=== PATIENT | female | born 1960 | race African-American/Black ===

== ENCOUNTER 2017-08-07 13:43 | Inpatient (IN) | payer MEDICARE, MEDICAID ==
[~2017-08-07] VITALS: Ht 157.5 cm; Wt 110.6 kg
[2017-08-07] VITALS (7 sets, daily range): BP systolic 74–121; BP diastolic 36–97; PULSE 90–114; RESP 16–22; TEMP 98–98.6; O2SAT 96–100
[~2017-08-07 13:43] MED LIST: AMLO5 PO; COUM5TAB PO; FERR65TA PO; K-TA10TA5 PO; METO5TAB46 PO; POLY10O EACH EYE; ULTR50TA PO
--- NOTE | 2017-08-07 16:19 | RADRPT ---
EXAM DATE/TIME: 08/07/2017 15:14 [facility] COMPARISON: No previous studies available for comparison. INDICATIONS : Right leg swelling. MEDICAL HISTORY : Hypertension. Gastroesophageal reflux disease. Diabetes. Anxiety. SURGICAL HISTORY : Tubal ligation. Knee surgery. ENCOUNTER: Initial ACUITY: 1 day PAIN SCORE: 7/10 LOCATION: Right leg. TECHNIQUE: Venous ultrasound of the leg was performed from the inguinal ligament to the proximal calf. Real-edwina e, color Doppler and spectral tracing, compression and augmentation techniques were used. FINDINGS: The study is abnormal demonstrating noncompressibility of the common femoral and superficial femoral veins. There is some flow within the femoral vein, but no augmentation can be produced. There is ec hogenic thrombus seen in the popliteal vein, noncompressible, and limited flow the popliteal vein wit hout evidence of augmentation. Absent flow in the posterior tibial vein. There is a large groin nod e which has a discernible fatty hilum, but measures 6.2 x 2.5 x 1.9 cm. There is a large oval cystic structure in the popliteal region which extends into the calf, just a complicated popliteal cyst klarissa suring 15.4 x 9.6 x 3.4 cm. CONCLUSION: 1. The study is positive for deep venous thrombosis from the inguinal region to the proximal calf. 2. Large complicated popliteal cyst measuring in excess of 15 cm. 3. Enlarged 6 cm groin node with a preserved fatty hilum. Otto Zhang MD on August 07, 2017 at 16:13 Board Certified Radiologist. This report was verified electronically.
[2017-08-07] MEDS ORDERED: MORPHINE SULFATE 2 MG/ML SYRINGE IV PUSH ONE (17:00)
[2017-08-07] MEDS ORDERED: ONDANSETRON HCL 4 MG/2 ML VIAL IV PUSH ONE (17:00)
[2017-08-07] MEDS ORDERED: ACETAMINOPHEN/HYDROcodone 325 MG/5 MG TAB PO ONE (17:00)
[2017-08-07] MEDS ORDERED: METO5TAB3 PO (17:10)
[2017-08-07] MEDS ORDERED: WARF-22 PO (17:10)
[2017-08-07] MEDS ORDERED: FURO1TAB62 PO (17:10)
[2017-08-07] MEDS ORDERED: WARF-23 PO (17:10)
[2017-08-07] MEDS ORDERED: AMLO5TAB2 PO (17:10)
[2017-08-07] MEDS ORDERED: POTA10TA2 PO (17:10)
--- NOTE | 2017-08-07 17:17 | RADRPT ---
EXAM DATE/TIME: 08/07/2017 16:59 [facility] COMPARISON: No previous studies available for comparison. INDICATIONS : Swelling in bilateral legs and shortness of breath. MEDICAL HISTORY : Hypertension. Gastroesophageal reflux disease. Diabetes. Anxiety. SURGICAL HISTORY : Tubal ligation. Knee surgery. ENCOUNTER: Initial ACUITY: 1 day PAIN SCORE: 0/10 LOCATION: Bilateral chest FINDINGS: The heart is enlarged. There is no overt congestive failure. The lungs are clear. The visualized bony structures are grossly intact. CONCLUSION: 1. Cardiomegaly. Matt Falk MD on August 07, 2017 at 17:14 Board Certified Radiologist. This report was verified electronically.
--- NOTE | 2017-08-07 18:06 | RADRPT ---
EXAM DATE/TIME: 08/07/2017 17:59 [facility] COMPARISON: No previous studies available for comparison. INDICATIONS : Syncopal episode. RADIATION DOSE: 37.64 CTDIvol (mGy) MEDICAL HISTORY : Hypertension. Gastritis, Diabetes SURGICAL HISTORY : Tubal ligation. ENCOUNTER: Initial ACUITY: 1 day PAIN SCALE: 0/10 LOCATION: cranial TECHNIQUE: Multiple contiguous axial images were obtained of the head. Using automated exposure control and adj ustment of the mA and/or kV according to patient size, radiation dose was kept as low as reasonably a chievable to obtain optimal diagnostic quality images. DICOM format image data is available electro nically for review and comparison. FINDINGS: CEREBRUM: The ventricles are normal for age. No evidence of midline shift, mass lesion, hemorrhage or acute in farction. No extra-axial fluid collections are seen. POSTERIOR FOSSA: The cerebellum and brainstem are intact. The 4th ventricle is midline. The cerebellopontine angle i s unremarkable. EXTRACRANIAL: The visualized portion of the orbits is intact. SKULL: The calvaria is intact. No evidence of skull fracture. CONCLUSION: 1. No acute findings in the brain. Otto Zhang MD on August 07, 2017 at 18:03 Board Certified Radiologist. This report was verified electronically.
[2017-08-07 18:07] LABS: AUTOMATED NEUTROPHIL # 10.7 TH/MM3 (1.8-7.7); BASOPHIL % 0.1 % (0.0-2.0); HEMATOCRIT 28.6 % (35.0-46.0); HEMOGLOBIN 9.5 GM/DL (11.6-15.3); LYMPH % 5.1 % (9.0-44.0); LYMPHOCYTE # 0.6 TH/MM3 (1.0-4.8); MEAN CELL VOLUME 75.5 FL (80.0-100.0); MEAN CORPUSCULAR HEMOGLOBIN 25.1 PG (27.0-34.0); MEAN CORPUSCULAR HGB CONC 33.3 % (32.0-36.0); MEAN PLATELET VOLUME 9.8 FL (7.0-11.0); MONO % 7.9 % (0.0-8.0); NEUT % 86.9 % (16.0-70.0); PLATELET COUNT 269 TH/MM3 (150-450); RED BLOOD COUNT 3.79 MIL/MM3 (4.00-5.30); WHITE BLOOD COUNT 12.3 TH/MM3 (4.0-11.0)
[2017-08-07 18:16] LABS: PROTHROMBIN TIME - PATIENT 122.2 SEC (9.8-11.6)
[2017-08-07 18:24] LABS: INTERNATIONAL NORMALIZED RATIO 12.3 RATIO
[2017-08-07] MEDS ORDERED: PHYTONADIONE 10 MG/ML VIAL SQ ONE (18:30)
[2017-08-07 18:38] LABS: BLOOD UREA NITROGEN 31 MG/DL (7-18); CREATININE 1.38 MG/DL (0.50-1.00); GLOMERULAR FILTRATION RATE 48 ML/MIN (>89); GLUCOSE,RANDOM 132 MG/DL (74-106)
[2017-08-07 18:39] LABS: ALKALINE PHOSPHATASE 109 U/L (45-117); ALT (GPT) 39 U/L (10-53); AST (GOT) 51 U/L (15-37); CALCIUM 8.9 MG/DL (8.5-10.1); CHLORIDE 93 MEQ/L (98-107); MAGNESIUM 1.4 MG/DL (1.5-2.5); SODIUM (NA) 134 MEQ/L (136-145); TOTAL BILIRUBIN ADULT 1.3 MG/DL (0.2-1.0); TOTAL PROTEIN 8.9 GM/DL (6.4-8.2); TROPONIN I LESS THAN 0.02 NG/ML (0.02-0.05)
--- NOTE | 2017-08-07 20:05 | PD ---
HPI Chief Complaint: Edema Time Seen by Provider: 16:40 Travel History International Travel<30 days: No Contact w/Intl Traveler<30days: No Traveled to known affect area: No History of Present Illness HPI 56-year-old female that presents to the ED for evaluation swelling and pain to the right leg. The patient has been started. The patient has a history of low pulse in the past has been having pain in the right leg since. Per patient she was sent here for evaluation. Patient sure he takes Coumadin. She states that she is compliant with the medication except for today as she cannot swallow it secondary to nausea and vomiting. She states that the pain is currently 3 out of 10 and gets worse with weightbearing. Apparently for the patient to get her ultrasound she had a syncopal episode witnessed by staff. Patient had to be help to be put on the room. Patient denies doing anything to cause this. Per patient she has never had this happen before. Family witnessed the injury as well and there were highly concerned. Patient's main complaint is the right leg. Patient is also somewhat of a poor historian and is unable to give me much information. She has multiple allergies to different medications. She denies chest pain or shortness of breath. She had a headache. She seems to be very anxious. Denies any urinary or bowel movement issues at this time. PFSH Past Medical History Arthritis: No Asthma: No Autoimmune Disease: No Blood Disorders: No Anxiety: Yes Depression: No Heart Rhythm Problems: No Cancer: No Cardiovascular Problems: No High Cholesterol: No Chemotherapy: No Chest Pain: No Congestive Heart Failure: No COPD: No Cerebrovascular Accident: No Diabetes: Yes Patient Takes Glucophage: No Diminished Hearing: No Endocrine: Yes GERD: Yes (GASTRITIS) Glaucoma: No Genitourinary: No Headaches: No Hepatitis: No Hiatal Hernia: No Hypertension: Yes Immune Disorder: No Kidney Stones: No Musculoskeletal: No Neurologic: Yes (BORDERLINE MENTAL RETARDATION) Psychiatric: Yes (ADJUSTMENT REACTION) Reproductive: No Respiratory: No Migraines: No Myocardial Infarction: No Radiation Therapy: No Renal Failure: No Seizures: No Sickle Cell Disease: No Sleep Apnea: No Thyroid Disease: No Ulcer: No : 5 Para: 2 Miscarriage: 2 : 1 Ectopic : No Ovarian Cysts: No Tubal Ligation: Yes Past Surgical History Abdominal Surgery: No AICD: No Appendectomy: No Arteriovenous Shunt: No Cardiac Surgery: No Cholecystectomy: No Ear Surgery: No Endocrine Surgery: No Eye Surgery: No Genitourinary Surgery: No Gynecologic Surgery: No Hysterectomy: No Insulin Pump: No Joint Replacement: No Oral Surgery: No Pacemaker: No Thoracic Surgery: No Other Surgery: Yes (COULDN"T REMEMBER--KNEE SURGERY LEFT 07/2006) Social History Alcohol Use: No Tobacco Use: No Substance Use: No Allergies-Medications (Allergen,Severity, Reaction): Coded Allergies: diatrizoate meglumine (Unverified Allergy, Severe, 08/07/17) gadobenic acid (Unverified Allergy, Severe, 08/07/17) gadodiamide (Unverified Allergy, Severe, 08/07/17) gadoteridol (Unverified Allergy, Severe, 08/07/17) iodixanol (Unverified Allergy, Severe, 08/07/17) iohexol (Unverified Allergy, Severe, 08/07/17) Uncoded Allergies: MRI DYE (Allergy, Severe, UNKNOWN, 01/13/07) Reported Meds & Prescriptions Reported Meds & Active Scripts Active Reported Amlodipine (Amlodipine Besylate) 5 Mg Tab 5 Mg PO DAILY Metolazone 5 Mg Tab 5 Mg PO DAILY Lasix (Furosemide) 20 Mg Tab 20 Mg PO BID Potassium Chloride ER (Potassium Chloride) 10 Meq Tab 30 Meq PO DAILY Warfarin 10 Mg Tab 10 Mg PO DAILY Warfarin 5 Mg Tab 5 Mg PO DAILY Review of Systems ROS Limitations: Poor Historian Except as stated in HPI: all other systems reviewed are Neg Physical Exam Exam Limitations: Poor Historian Narrative GENERAL: SKIN: Warm and dry. HEAD: Atraumatic. Normocephalic. EYES: Pupils equal and round. No scleral icterus. No injection or drainage. ENT: No nasal bleeding or discharge. Mucous membranes pink and moist. NECK: Trachea midline. No JVD. CARDIOVASCULAR: Regular rate and rhythm. RESPIRATORY: No accessory muscle use. Clear to auscultation. Breath sounds equal bilaterally. GASTROINTESTINAL: Abdomen soft, non-tender, nondistended. Hepatic and splenic margins not palpable. MUSCULOSKELETAL: Extremities without clubbing, cyanosis, or edema. No obvious deformities. Patient has swelling and pain in the right leg and will barely let me touch it with having a lot of pain. Patient does appear to have good pulses. 2+ pulses bilaterally. No obvious deformity or pain to the left leg although does appear to be somewhat swollen. No lumbar, thoracic, cervical spine tenderness to palpation. NEUROLOGICAL: Awake and alert. No obvious cranial nerve deficits. Motor grossly within normal limits. Five out of 5 muscle strength in the arms and legs. Normal speech. PSYCHIATRIC: Appropriate mood and affect; insight and judgment normal. Data Data Last Documented VS Vital Signs Date Time Temp Pulse Resp B/P (MAP) Pulse Ox O2 Delivery O2 Flow Rate FiO2 08/07/17 20:13 98.6 94 16 107/67 (80) 97 Room Air Orders Orders Us Leg Venous Doppler (08/07/17 ) Electrocardiogram (08/07/17 16:50) Complete Blood Count With Diff (08/07/17 16:50) Comprehensive Metabolic Panel (08/07/17 16:50) Ckmb (Isoenzyme) Profile (08/07/17 16:50) Troponin I (08/07/17 16:50) Prothrombin Time / Inr (Pt) (08/07/17 16:50) Act Partial Throm Time (Ptt) (08/07/17 16:50) Lipase (08/07/17 16:50) Urinalysis - C+S If Indicated (08/07/17 16:50) Magnesium (Mg) (08/07/17 16:50) Thyroid Stimulating Hormone (08/07/17 16:50) Chest, Single Ap (08/07/17 16:50) Iv Access Insert/Monitor (08/07/17 16:50) Ecg Monitoring (08/07/17 16:50) Oximetry (08/07/17 16:50) Acetamin-Hydrocod 325-5 Mg ([place] 5-325 (08/07/17 17:00) Ventilation & Perfusion Scan (08/07/17 ) Morphine Inj (Morphine Inj) (08/07/17 17:00) Ondansetron Inj (Zofran Inj) (08/07/17 17:00) Ct Brain W/O Iv Contrast(Rout) (08/07/17 ) Phytonadione Inj (Vitamin K Inj) (08/07/17 18:30) Type And Screen (08/07/17 18:25) CKMB (08/07/17 17:38) CKMB% (08/07/17 17:38) Admit Order (Ed Use Only) (08/07/17 20:36) Labs Laboratory Tests Test 08/07/17 17:38 White Blood Count 12.3 TH/MM3 Red Blood Count 3.79 MIL/MM3 Hemoglobin 9.5 GM/DL Hematocrit 28.6 % Mean Corpuscular Volume 75.5 FL Mean Corpuscular Hemoglobin 25.1 PG Mean Corpuscular Hemoglobin Concent 33.3 % Red Cell Distribution Width 15.0 % Platelet Count 269 TH/MM3 Mean Platelet Volume 9.8 FL Neutrophils (%) (Auto) 86.9 % Lymphocytes (%) (Auto) 5.1 % Monocytes (%) (Auto) 7.9 % Eosinophils (%) (Auto) 0.0 % Basophils (%) (Auto) 0.1 % Neutrophils # (Auto) 10.7 TH/MM3 Lymphocytes # (Auto) 0.6 TH/MM3 Monocytes # (Auto) 1.0 TH/MM3 Eosinophils # (Auto) 0.0 TH/MM3 Basophils # (Auto) 0.0 TH/MM3 CBC Comment DIFF FINAL Differential Comment Prothrombin Time 122.2 SEC Prothromb Time International Ratio 12.3 RATIO Activated Partial Thromboplast Time 75.8 SEC Blood Urea Nitrogen 31 MG/DL Creatinine 1.38 MG/DL Random Glucose 132 MG/DL Total Protein 8.9 GM/DL Albumin 3.0 GM/DL Calcium Level 8.9 MG/DL Magnesium Level 1.4 MG/DL Alkaline Phosphatase 109 U/L Aspartate Amino Transf (AST/SGOT) 51 U/L Alanine Aminotransferase (ALT/SGPT) 39 U/L Total Bilirubin 1.3 MG/DL Sodium Level 134 MEQ/L Potassium Level 3.6 MEQ/L Chloride Level 93 MEQ/L Carbon Dioxide Level 31.0 MEQ/L Anion Gap 10 MEQ/L Estimat Glomerular Filtration Rate 48 ML/MIN Total Creatine Kinase 335 U/L Creatine Kinase MB LESS THAN 0.5 NG/ML Creatine Kinase MB % 0.1 % Troponin I LESS THAN 0.02 NG/ML Lipase 128 U/L Thyroid Stimulating Hormone 3rd Gen 0.907 uIU/ML MDM Medical Decision Making Medical Screen Exam Complete: Yes Emergency Medical Condition: Yes Medical Record Reviewed: Yes Interpretation(s) CBC & BMP Diagram 08/07/17 17:38 Total Protein 8.9 H, Albumin 3.0 L, Calcium Level 8.9, Magnesium Level 1.4 L, Alkaline Phosphatase 109, Aspartate Amino Transf (AST/SGOT) 51 H, Alanine Aminotransferase (ALT/SGPT) 39, Total Bilirubin 1.3 H INR of 12 Last Impressions Chest X-Ray 08/07/17 1650 Signed Impressions: Service Date/Time: August 16:59 - CONCLUSION: 1. Cardiomegaly. Matt Falk MD Lower Extremity Ultrasound 08/07/17 0000 Signed Impressions: Service Date/Time: August 15:14 - CONCLUSION: 1. The study is positive for deep venous thrombosis from the inguinal region to the proximal calf. 2. Large complicated popliteal cyst measuring in excess of 15 cm. 3. Enlarged 6 cm groin node with a preserved fatty hilum. Otto Zhang MD Head CT 08/07/17 0000 Signed Impressions: Service Date/Time: August 17:59 - CONCLUSION: 1. No acute findings in the brain. Otto Zhang MD Differential Diagnosis Syncope versus fall versus DVT versus PE versus anxiety versus head injury versus coagulopathy Narrative Course 56-year-old female who presents to the ED for evaluation of syncope and possible swelling. Patient was properly examined and was found to have signs and symptoms concerning syncope and DVT. Patient had an ultrasound done in triage showed positive for DVT. Patient already takes Coumadin. Concerning this patient should be therapeutic. Labs and imaging were ordered. Labs and imaging show coagulopathy with INR of 12. This was discussed with my attending Dr. Hill who recommends that at this time patient be only given vitamin K as patient does have a DVT. Because of patient's syncope and tachycardia we are concerned for PE. Patient is allergic to iodine dye so VQ scan was ordered. Patient was given IV pain medications and p.o. pain medications. VQ scan showed no sign of active disease. Case discussed with Dr Neal who agrees to admission. Diagnosis Primary Impression: Syncope Qualified Codes: R55 - Syncope and collapse Additional Impressions: DVT (deep venous thrombosis) Qualified Codes: I82.4Y1 - Acute embolism and thrombosis of unspecified deep veins of right proximal lower extremity Warfarin-induced coagulopathy Admitting Information Admitting Physician Requests: Admit Alexsander Restrepo Aug 07, 2017 20:05
--- NOTE | 2017-08-07 20:05 | RADRPT ---
EXAM DATE/TIME: 08/07/2017 19:16 [facility] COMPARISON: No previous studies available for comparison. INDICATIONS : Dyspnea. Syncope. DOSE: 1.3 mCi Tc99m DTPA 8.2 mCi Tc99m MAA MEDICAL HISTORY : Hypertension. Diabetes mellitus type 2. Borderline mental retardation. SURGICAL HISTORY : Tubal ligation. Left knee surgery. ENCOUNTER: Initial ACUITY: 1 day PAIN SCALE: 2/10 LOCATION: chest TECHNIQUE: Following five minutes of tidal breathing of DTPA aerosol, planar images of the lungs were performed in eight projections. The patient was then injected with MAA, and eight-view perfusion scan was perf ormed. FINDINGS: There is a homogeneous pattern of aerosol delivery to the periphery of both lungs. No focal ventilat ory defects are seen. The perfusion lung scan demonstrates a homogenous pattern of uptake in both lungs. No segmental or s ubsegmental defects are seen. CONCLUSION: 1. No evidence for pulmonary embolus. Chaz Arguelles MD on August 07, 2017 at 20:02 Board Certified Radiologist. This report was verified electronically.
[2017-08-07] MEDS: SODIUM CHLOR 0.9% 1000 ML INJ 1,000 ML IV SCH (22:45)
[2017-08-07] MEDS: SODIUM CHLORIDE 0.9% FLUSH 10 ML FLUSH IV FLUSH PRN (22:45)
[2017-08-07] MEDS: ACETAMINOPHEN/HYDROcodone 325 MG/5 MG TAB PO PRN (23:09)
[2017-08-08 04:00] VITALS: BP 97/53; PULSE 83; RESP 18; TEMP 98.8; O2SAT 97
--- NOTE | 2017-08-08 04:37 | HHI.HP ---
[facility] Bart Dotson M.D. Admission Diagnosis DVT on coumadin, warfarin induced coagulopathy, syncope Diagnoses: Travel History International Travel<30 Days: No Contact w/Intl Traveler <30 Da: No Traveled to Known Affected Are: No History of Present Illness 56-year-old female with a past medical history significant for borderline mental retardation, adjustment reaction, anxiety, diabetes, GERD, hypertension and history of previously diagnosed DVT was brought to the emergency department for evaluation of a syncopal episode. The patient has a known DVT in her right lower extremity and was having an outpatient ultrasound done yesterday when she had a syncopal episode that was witnessed by staff and family. The patient is an extremely poor historian and is unable to provide me with any information. She states she is having pain in her right lower extremity, worse in the calf region and states that that is why she came to the emergency department today. She denies any other complaints at this time. She states that her DVT was diagnosed yesterday and she was started on blood thinner. The patient is on Coumadin and has a supratherapeutic INR of 12.3. She denies chest pain or shortness of breath. No abdominal pain. No nausea/vomiting/diarrhea. States she does have difficulty walking secondary to right lower extremity pain. Review of Systems Except as stated in HPI: all other systems reviewed are Neg Past Family Social History Past Medical History borderline mental retardation, adjustment reaction, anxiety, diabetes, GERD, hypertension and history of previously diagnosed DVT Past Surgical History Tubal ligation Reported Medications Reported Meds & Active Scripts Active Reported Amlodipine (Amlodipine Besylate) 5 Mg Tab 5 Mg PO DAILY Metolazone 5 Mg Tab 5 Mg PO DAILY Lasix (Furosemide) 20 Mg Tab 20 Mg PO BID Potassium Chloride ER (Potassium Chloride) 10 Meq Tab 30 Meq PO DAILY Warfarin 10 Mg Tab 10 Mg PO DAILY Warfarin 5 Mg Tab 5 Mg PO DAILY Allergies: Coded Allergies: diatrizoate meglumine (Unverified Allergy, Severe, 08/07/17) gadobenic acid (Unverified Allergy, Severe, 08/07/17) gadodiamide (Unverified Allergy, Severe, 08/07/17) gadoteridol (Unverified Allergy, Severe, 08/07/17) iodixanol (Unverified Allergy, Severe, 08/07/17) iohexol (Unverified Allergy, Severe, 08/07/17) Uncoded Allergies: MRI DYE (Allergy, Severe, UNKNOWN, 01/13/07) Family History Unable to obtain secondary to patient's clinical condition Social History Negative for alcohol, tobacco and illicit drugs Physical Exam Vital Signs Vital Signs Date Time Temp Pulse Resp B/P (MAP) Pulse Ox O2 Delivery O2 Flow Rate FiO2 08/07/17 23:55 98.0 90 18 74/36 (49) 98 84/49 (61) 121/97 (105) 08/07/17 22:19 08/07/17 20:13 98.6 94 16 107/67 (80) 97 Room Air 08/07/17 17:05 108 20 115/70 (85) 100 Room Air 08/07/17 16:51 114 21 115/70 (85) 96 Room Air 08/07/17 15:35 108 18 99/81 (87) 99 08/07/17 15:20 106 99/81 (87) 100 08/07/17 14:06 98.3 102 22 114/54 (74) 100 Physical Exam GENERAL: Obese, female lying in bed SKIN: No rashes, ecchymoses or lesions. Cool and dry. HEAD: Atraumatic. Normocephalic. No temporal or scalp tenderness. EYES: Pupils equal round and reactive. Extraocular motions intact. No scleral icterus. No injection or drainage. ENT: Nose without bleeding, purulent drainage or septal hematoma. Throat without erythema, tonsillar hypertrophy or exudate. Uvula midline. Airway patent. NECK: Trachea midline. No JVD or lymphadenopathy. Supple, nontender, no meningeal signs. CARDIOVASCULAR: Regular rate and rhythm without murmurs, gallops, or rubs. RESPIRATORY: Clear to auscultation. Breath sounds equal bilaterally. No wheezes , rales, or rhonchi. GASTROINTESTINAL: Abdomen soft, non-tender, nondistended. No hepato-splenomegaly , or palpable masses. No guarding. MUSCULOSKELETAL: Right lower extremity swollen when compared to left. Tender to palpation. NEUROLOGICAL: Awake and alert. Cranial nerves II through XII intact. Motor and sensory grossly within normal limits. Normal speech. Laboratory Laboratory Tests Test 08/07/17 17:38 White Blood Count 12.3 Red Blood Count 3.79 Hemoglobin 9.5 Hematocrit 28.6 Mean Corpuscular Volume 75.5 Mean Corpuscular Hemoglobin 25.1 Mean Corpuscular Hemoglobin Concent 33.3 Red Cell Distribution Width 15.0 Platelet Count 269 Mean Platelet Volume 9.8 Neutrophils (%) (Auto) 86.9 Lymphocytes (%) (Auto) 5.1 Monocytes (%) (Auto) 7.9 Eosinophils (%) (Auto) 0.0 Basophils (%) (Auto) 0.1 Neutrophils # (Auto) 10.7 Lymphocytes # (Auto) 0.6 Monocytes # (Auto) 1.0 Eosinophils # (Auto) 0.0 Basophils # (Auto) 0.0 CBC Comment DIFF FINAL Differential Comment Prothrombin Time 122.2 Prothromb Time International Ratio 12.3 Activated Partial Thromboplast Time 75.8 Blood Urea Nitrogen 31 Creatinine 1.38 Random Glucose 132 Total Protein 8.9 Albumin 3.0 Calcium Level 8.9 Magnesium Level 1.4 Alkaline Phosphatase 109 Aspartate Amino Transf (AST/SGOT) 51 Alanine Aminotransferase (ALT/SGPT) 39 Total Bilirubin 1.3 Sodium Level 134 Potassium Level 3.6 Chloride Level 93 Carbon Dioxide Level 31.0 Anion Gap 10 Estimat Glomerular Filtration Rate 48 Total Creatine Kinase 335 Creatine Kinase MB LESS THAN 0.5 Creatine Kinase MB % 0.1 Troponin I LESS THAN 0.02 Lipase 128 Thyroid Stimulating Hormone 3rd Gen 0.907 Result Diagram: 08/07/17 1738 08/07/17 1738 Caprini VTE Risk Assessment Caprini VTE Risk Assessment: Mod/High Risk (score >= 2) Caprini Risk Assessment Model Point Value = 1 Point Value = 2 Point Value = 3 Point Value = 5 Age 41-60 Minor surgery BMI > 25 kg/m2 Swollen legs Varicose veins or History of unexplained or recurrent spontaneous Oral contraceptives or hormone replacement Sepsis (< 1 month) Serious lung disease, including pneumonia (< 1 month) Abnormal pulmonary function Acute myocardial infarction Congestive heart failure (< 1 month) History of inflammatory bowel disease Medical patient at bed rest Age 61-74 Arthroscopic surgery Major open surgery (> 45 min) Laparoscopic surgery (> 45 min) Malignancy Confined to bed (> 72 hours) Immobilizing plaster cast Central venous access Age >= 75 History of VTE Family history of VTE Factor V Leiden Prothrombin [id number] Lupus anticoagulant Anticardiolipin antibodies Elevated serum homocysteine Heparin-induced thrombocytopenia Other congenital or acquired thrombophilia Stroke (< 1 month) Elective arthroplasty Hip, pelvis, or leg fracture Acute spinal cord injury (< 1 month) Prophylaxis Regimen Total Risk Factor Score Risk Level Prophylaxis Regimen 0-1 Low Early ambulation 2 Moderate Order ONE of the following: *Sequential Compression Device (SCD) *Heparin 5000 units SQ BID 3-4 Higher Order ONE of the following medications: *Heparin 5000 units SQ TID *Enoxaparin/Lovenox 40 mg SQ daily (WT < 150 kg, CrCl > 30 mL/min) *Enoxaparin/Lovenox 30 mg SQ daily (WT < 150 kg, CrCl > 10-29 mL/min) *Enoxaparin/Lovenox 30 mg SQ BID (WT < 150 kg, CrCl > 30 mL/min) AND/OR *Sequential Compression Device (SCD) 5 or more Highest Order ONE of the following medications: *Heparin 5000 units SQ TID (Preferred with Epidurals) *Enoxaparin/Lovenox 40 mg SQ daily (WT < 150 kg, CrCl > 30 mL/min) *Enoxaparin/Lovenox 30 mg SQ daily (WT < 150 kg, CrCl > 10-29 mL/min) *Enoxaparin/Lovenox 30 mg SQ BID (WT < 150 kg, CrCl > 30 mL/min) AND *Sequential Compression Device (SCD) Assessment and Plan Assessment and Plan Assessment/plan: 1. Supratherapeutic INR INR 12.3 Status post vitamin K Monitor INR Monitor closely for signs of bleeding Holding Coumadin 2. Right lower extremity DVT Patient with extensive right lower extremity DVT despite anticoagulation with Coumadin Will likely need different anticoagulation Hematology consulted, appreciate recommendations 3. Syncope Unclear history as patient does not remember the event Carotid ultrasound/Echo pending 4. Diabetes mellitus Sliding scale insulin Monitor blood glucose 5. GERD/hypertension Continue home medications 6. BROWN Creatinine 1.38, baseline unknown IV fluid hydration Monitor renal function FEN Heart healthy diet Electrolytes: Monitor and replete when necessary NS at 125 cc/hr Physician Certification 2 Midnight Certification Type: Admission for Inpatient Services Order for Inpatient Services The services are ordered in accordance with Medicare regulations or non- Medicare payer requirements, as applicable. In the case of services not specified as inpatient-only, they are appropriately provided as inpatient services in accordance with the 2-midnight benchmark. Estimated LOS (days): 2 2 days is the estimated time the patient will need to remain in the hospital, assuming treatment plan goals are met and no additional complications. Post-Hospital Plan: Not yet determined Ayleen Neal MD Aug 08, 2017 04:37
--- NOTE | 2017-08-08 05:39 | EKG ---
Date Performed: 08/07/2017 Time Performed: 17:19:41 PTAGE: 56 years EKG: SINUS TACHYCARDIA POSSIBLE LEFT ATRIAL ENLARGEMENT NONSPECIFIC T-WAVE ABNORMALITY ABNORMAL RHYTHM ECG NO PREVIOUS TRACING DOCTOR: Gerardo Maradiaga Interpretating Date/Time 08/08/2017 05:38:01
[2017-08-08] MEDS: ACETAMINOPHEN/HYDROcodone 325 MG/5 MG TAB PO PRN ×4 (06:04→21:52)
[2017-08-08 08:00] VITALS: BP 76/52; PULSE 79; PULSE 82; RESP 18; TEMP 98.5; O2SAT 98
[2017-08-08] MEDS: amLODIPine BESYLATE 5 MG TAB PO SCH (10:42)
[2017-08-08] MEDS: POTASSIUM CHLORIDE 10 MEQ CONTROLLED RELEASE TAB PO SCH (10:42)
[2017-08-08] MEDS: METOLAZONE 5 MG TAB PO SCH (10:43)
[2017-08-08] MEDS: FUROSEMIDE 20 MG TAB PO SCH ×2 (10:43→19:58)
[2017-08-08] MEDS: SODIUM CHLORIDE 0.9% FLUSH 10 ML FLUSH IV FLUSH SCH ×2 (10:44→19:58)
[2017-08-08] MEDS: SODIUM CHLOR 0.9% 1000 ML INJ 1,000 ML IV SCH ×2 (10:45→17:52)
--- NOTE | 2017-08-08 11:54 | RADRPT ---
EXAM DATE/TIME: 08/08/2017 11:16 [facility] COMPARISON: No previous studies available for comparison. INDICATIONS : Syncope. MEDICAL HISTORY : Hypertension. Gastroesophageal reflux disease. Gastritis. Arthritis. Diabetes. SURGICAL HISTORY : Tubal ligation. Left knee surgery. ENCOUNTER: Initial ACUITY: 1 day PAIN SCORE: 10/10 LOCATION: Bilateral neck PEAK SYSTOLIC VELOCITIES (cm/sec): ICA/CCA RATIO: Right: 1.3 Left: 1.6 ICA: Right: 133.2 Left: 131.8 CCA: Right: 101.6 Left: 81.4 ECA: Right: 104.9 Left: 106.5 VERTEBRAL: Right: 58.6 antegrade Left: 65.8 antegrade Elevated flow velocities and ICA/CCA ratios have been found to correlate with increased degrees of vessel stenosis, calculated as percentage of diameter relative to a normal segment of distal ICA/CCA FINDINGS: RIGHT CAROTID: There is mild plaque formation in the carotid bulb. No significant stenosis is visualized. The wave forms are within normal limits. LEFT CAROTID: There is mild plaque formation in the proximal internal carotid artery. No significant stenosis is v isualized. The waveforms are within normal limits. VERTEBRAL ARTERIES: Antegrade flow is seen in both vertebral arteries. CONCLUSION: Mild noncalcified plaque seen real-time images. However, hemodynamic parameters are borderline eleva lenny suggesting possible 50-70% stenoses. Otto Zhang MD on August 08, 2017 at 11:50 Board Certified Radiologist. This report was verified electronically.
[2017-08-08 12:00] VITALS: BP 91/52; PULSE 80; PULSE 87; RESP 18; TEMP 98.5; O2SAT 98
[2017-08-08] MEDS: MORPHINE SULFATE 2 MG/ML SYRINGE IV PUSH PRN ×2 (13:36→19:57)
[2017-08-08 16:00] VITALS: BP 125/59; PULSE 88; PULSE 98; RESP 18; TEMP 101.6; O2SAT 98
--- NOTE | 2017-08-08 16:51 | ECHRPT ---
Indication: Syncope CONCLUSIONS The left ventricular systolic function is low normal with an estimated ejection fraction in the rang e of 50- 55%. Mild concentric left ventricular hypertrophy. Normal left ventricular size. Trivial pulmonary valve regurgitation. BP: / HR: 79 Rhythm: Sinus MEASUREMENTS (Male / Female) Normal Values Technical Quality:Technically difficult study 2D ECHO LV Diastolic Diameter PLAX 4.3 cm 4.2 - 5.9 / 3.9 - 5.3 cm LV Systolic Diameter PLAX 3.1 cm IVS Diastolic Thickness 1.3 cm 0.6 - 1.0 / 0.6 - 0.9 cm LVPW Diastolic Thickness 1.0 cm 0.6 - 1.0 / 0.6 - 0.9 cm LV Relative Wall Thickness 0.5 RV Internal Dim ED PLAX 2.9 cm LVOT Diameter 1.9 cm LA Systolic Diameter LX 3.6 cm 3.0 - 4.0 / 2.7 - 3.8 cm M-MODE Aortic Root Diameter MM 2.7 cm LA Systolic Diameter MM 4.0 cm LA Ao Ratio MM 1.5 AV Cusp Separation MM 1.3 cm DOPPLER AV Peak Velocity 173.0 cm/s AV Peak Gradient 12.0 mmHg MV Area PHT 3.7 cm Mitral E Point Velocity 92.2 cm/s Mitral A Point Velocity 45.1 cm/s Mitral E to A Ratio 2.0 LV E' Lateral Velocity 8.3 cm/s Mitral E to LV E' Lateral Ratio 11.1 LV E' Septal Velocity 7.1 cm/s Mitral E to LV E' Septal Ratio 12.9 FINDINGS LEFT VENTRICLE The left ventricular systolic function is low normal with an estimated ejection fraction in the rang e of 50- 55%. Mild concentric left ventricular hypertrophy. Normal left ventricular size. RIGHT VENTRICLE Normal right ventricular size and systolic function. LEFT ATRIUM The left atrial size is normal. RIGHT ATRIUM The right atrial size is normal. ATRIAL SEPTUM Normal atrial septal thickness without atrial level shunting by limited color doppler interrogation. AORTA The aortic root and proximal ascending aorta are normal in size on limited imaging. MITRAL VALVE Structurally normal mitral valve. No mitral valve stenosis or regurgitation. AORTIC VALVE Moderate thickening of the aortic valve leaflets. TRICUSPID VALVE Structurally normal tricuspid valve. No tricuspid valve stenosis or regurgitation. PULMONARY VALVE Trivial pulmonary valve regurgitation. VESSELS The inferior vena cava is normal in size. PERICARDIUM No pericardial effusion. Frankie Gutierrez MD, FACC (Electronically Signed) Final Date:08 August 2017 16:51
--- NOTE | 2017-08-08 18:33 | MB ---
cc: Ronni Smith MD, Kashyap MD DATE: 08/08/2017 REASON FOR CONSULTATION: The patient with recurrent lower extremity deep venous thromboses. She apparently has progressive DVT while on warfarin. This was the reason for consultation. CHIEF COMPLAINT: Pain in the right leg associated with worsening swelling. The patient reports the pain has been present since the day before Friday, which was 6 days ago. HISTORY OF PRESENT ILLNESS: Ms. Petersen is a 56-year-old female with a history of recurrent lower extremity deep venous thromboses. I did review our electronic health record, and this patient has had documented bilateral lower extremity deep venous thromboses going back to 2006. She underwent an IVC filter placement in October 2006, and I suspect this remains in place. The patient reports having been on anticoagulation with warfarin for several years now. She tells me the warfarin is managed by her PCP, Dr. Bart Dotson. Her most recent PT/INR check was in mid July, per the patient, and she was told it was fine. She tells me she takes the medication every day just as prescribed. When asked if she misses doses or sometimes takes extra, she tells me that does not happen. The patient comes into the hospital with the above-noted complaints of pain and swelling in her right leg. She did undergo ultrasound Doppler studies on 08/07/2017, and ultrasound Doppler of the right lower extremity revealed deep venous thromboses involving the inguinal region down to the proximal calf. There was a large complicated popliteal cyst measuring approximately 15 cm noted, and a large 6 cm right groin lymph node with a preserved fatty hilum was also appreciated. Interestingly, the patient's PT/INR levels were supratherapeutic at the time of presentation with a PT of 122, PTT of 75.8, and an INR of 12.3. She was treated with subcutaneous vitamin K and was admitted to the hospital. The hematology service has been asked to see her for presumed failure of warfarin despite her being therapeutic. I do not have serial ultrasound Doppler studies to review to determine the chronicity of the current deep venous thrombosis. PAST MEDICAL HISTORY: 1. Morbid obesity. 2. Hypertension. 3. Chronic lower extremity edema. 4. Hyperlipidemia. 5. She reports having a neurocognitive deficits. 6. She reports previously having been diabetic. PAST SURGICAL HISTORY: 1. IVC filter placement. 2. EGD and colonoscopy. She does not recall any other past surgical procedures. FAMILY HISTORY: Mom of cancer of the stomach. Her father at a young age, he in an accidental drowning. She reports having had a maternal uncle with lung cancer. SOCIAL HISTORY: The patient lives at home alone, she lives in an assisted living facility. She has an adult son and daughter, both of whom live in the [place] area, both of whom are involved in her care. She tells me she is self-sufficient, she never and previously worked various jobs. The patient is originally from [place] and then moved around before settling in [facility] in the early . ALLERGIES: She has allergies as documented in the electronic health record: 1. GADOBENIC ACID. 2. DIATRIZOATE. 3. MRI CONTRAST. REVIEW OF SYSTEMS: A 13-point review of systems were obtained. The following are the pertinent positives and negatives: CONSTITUTIONAL: The patient reports weakness, fatigue. She reports low-grade fevers. HEENT: Denies headaches, denies blurry vision, denies soreness in her throat, denies difficulty swallowing. RESPIRATORY: Reports difficulty breathing with minimal exertion. Denies cough or hemoptysis. CARDIOVASCULAR: Denies angina-like chest pain, PND or orthopnea. LOWER EXTREMITIES: Chronic lower extremity edema. GASTROINTESTINAL: Denies nausea, vomiting, diarrhea, hematochezia or melena. She denies abdominal distention. UROGENITAL: No complaints. CENTRAL NERVOUS SYSTEM: No complaints. MUSCULOSKELETAL: She reports pain in her right leg. PHYSICAL EXAMINATION: VITAL SIGNS: Temperature 98.5 degrees Fahrenheit, heart rate 80 beats per minute, respiratory rate 18, blood pressure is 91/52, O2 saturations are 98% on room air. GENERAL APPEARANCE: Ms. Peetrsen is a middle-aged lady. She is short and is morbidly obese. She is sitting up in bed and is in no acute distress. HEENT: Head is atraumatic, normocephalic. Conjunctivae are mildly pale. Sclerae are anicteric, EOMI, PERRLA. Oral exam: No pharyngeal erythema. NECK: No palpable cervical or supraclavicular lymphadenopathy. RESPIRATORY: Good air movement bilaterally on anterior examination. Slightly diminished breath sounds over the bases. CARDIOVASCULAR: Regular rate and rhythm, S1, S2. No obvious murmurs, rubs or gallops. ABDOMEN: Morbidly obese, soft, nontender, nondistended. No obvious organ enlargement, but this exam was limited by her body habitus. EXTREMITIES: She has bilateral edema; it is nonpitting. The right calf posteriorly is warm to the touch and edematous. There appears to be some erythema as well. She does not have any tenderness of the thigh on the right side, which is where the bulk of the deep venous thrombosis is. LABORATORY FINDINGS: Labs dated 08/07/2017: WBC count 12.3, hemoglobin 9.5 g/dL, hematocrit 28.6%, MCV 75.5, platelet count 269, absolute neutrophil count is 10.5, absolute lymphocyte count is 0.6. Chemistries: Sodium 134, potassium 3.6, chloride 93, bicarb 31, BUN 31, creatinine 1.38, eGFR 48, random glucose is 132, calcium 8.9, magnesium 1.4, total bilirubin 1.3, AST 51, ALT 39, alkaline phosphatase 109, CK is 33.5. ____ is 8.9, ____ is 3, lipase 128, TSH is 0.91. Coags dated 08/07/2017: PT 122, INR 12.3, PTT 75.8. IMAGING STUDIES: Ultrasound Doppler study of the right lower extremity dated 08/07/2017 indicates positive for deep venous thrombosis from the inguinal region to the proximal calf. Large complicated popliteal cyst measuring in excess of 15 cm, and a large 6 cm groin lymph node with preserved fatty hilum. ASSESSMENT: Ms. Petersen is a 56-year-old female with a history of recurrent lower extremity deep venous thromboses (DVTs). She has had DVTs dating back to 2007. In the summer of 2016, she underwent placement of an IVC filter as well, presumably for her history of DVTs. She has been on anticoagulation with warfarin and tells me her PCP typically monitors her PT/INR levels. She claims she is fully adherent to the medication as prescribed. The patient presents to this facility with complaints of progressive pain and swelling of the right leg. She reports the pain is mostly involving the right calf. On clinical examination, she has erythema of the right calf and it appears, in my opinion, to be most consistent with cellulitis, given the exquisite tenderness and the superficial tenderness. Additionally, she was noted to have a DVT involving the right lower extremity, with the DVT extending from the right inguinal area down to the right popliteal veins. She has no tenderness involving the right thigh. Her PT/INR was noted to be supratherapeutic and she was treated with subcutaneous vitamin K. Repeat PT/INR levels are pending. RECOMMENDATIONS: 1. Pain in the right calf: Clinical picture is more consistent with cellulitis. I am not certain to what degree her current symptoms are related to the DVT. I would therefore recommend initiating antibiotic therapy for management of cellulitis. 2. History of recurrent deep venous thromboses: Given the fact that this patient has an IVC filter and has had an IVC filter for about 11 years now, it is quite possible that she has had chronic lower extremity DVTs. The chronicity of the current DVT would be impossible to know without there being serial assessments over time, which we have not had. Upon reviewing the report, there is no indication to suggest the DVT was acute. Additionally, she has no symptoms of pain in her thigh, which is where the bulk of the DVT is. Such a presentation indicates more of a chronic DVT, as opposed to an acute DVT. I will recommend obtaining a prothrombotic workup for her. I suspect her risk factors for DVTs are her morbid obesity and relative immobility. Additionally, the fact that she has an IVC filter in place is also a risk factor for recurrence of lower extremity deep venous thromboses. 3. Elevated PT/INR levels: I would recommend repeating a PT/INR right now. It may be reasonable to initiate this lady on an oral factor X inhibitor such as Eliquis or Xarelto. Special attention will need to be directed to her renal function to make sure she maintains normal renal function while on these medications. MD ARAM Ritchie/NIRAV , 05:14 PM , 06:31 PM
[2017-08-08 19:22] LABS: PROTHROMBIN TIME - PATIENT 60.6 SEC (9.8-11.6)
[2017-08-08 19:41] LABS: INTERNATIONAL NORMALIZED RATIO 6.1 RATIO
[2017-08-08 20:00] VITALS: BP_SYST 103; BP_SYST 105; BP_SYST 106; BP_DIAS 55; BP_DIAS 62; PULSE 97; RESP 20; TEMP 100.9; O2SAT 97
[2017-08-09] VITALS (15 sets, daily range): BP systolic 90–109; BP diastolic 51–66; PULSE 79–100; RESP 18–22; TEMP 98.7–100.3; O2SAT 95–99
[2017-08-09] MEDS: ACETAMINOPHEN/HYDROcodone 325 MG/5 MG TAB PO PRN ×5 (01:20→20:55)
[2017-08-09] MEDS: SODIUM CHLOR 0.9% 1000 ML INJ 1,000 ML IV SCH ×3 (03:52→23:52)
--- NOTE | 2017-08-09 08:52 | HHI.PR ---
Subjective Remarks 56-year-old female with a past medical history significant for borderline mental retardation, adjustment reaction, anxiety, diabetes, GERD, hypertension and history of previously diagnosed DVT was brought to the emergency department for evaluation of a syncopal episode. The patient has a known DVT in her right lower extremity and was having an outpatient ultrasound done yesterday when she had a syncopal episode that was witnessed by staff and family. The patient is an extremely poor historian and is unable to provide me with any information. She states she is having pain in her right lower extremity, worse in the calf region and states that that is why she came to the emergency department today. She denies any other complaints at this time. She states that her DVT was diagnosed yesterday and she was started on blood thinner. The patient is on Coumadin and has a supratherapeutic INR of 12.3. She denies chest pain or shortness of breath. No abdominal pain. No nausea/vomiting/diarrhea. States she does have difficulty walking secondary to right lower extremity pain. 08/09: Echocardiogram EF 55%. Seen by Doctor Ronni Smith, the patient has recurrent lower extremity DVT, Bilateral 2006, IVC filter in October 2006, has Morbid Obesity, now with Right lower extremity DVT, Right calf cellulitis, recommended to start antibiotics. recommended Eliquis or Xarelto. special attention to her renal function. Objective Vital Signs Date Time Temp Pulse Resp B/P (MAP) Pulse Ox O2 Delivery O2 Flow Rate FiO2 08/09/17 07:28 83 08/09/17 04:00 100.3 93 18 90/51 (64) 95 08/09/17 01:20 109/58 (75) 08/09/17 00:00 98.7 100 22 92/51 (65) 97 08/08/17 20:00 100.9 97 20 106/55 (72) 97 105/62 (76) 103/55 (71) 08/08/17 16:00 101.6 98 18 125/59 (81) 98 08/08/17 16:00 88 08/08/17 12:00 98.5 80 18 91/52 (65) 98 08/08/17 12:00 87 I/O 08/08/17 08/08/17 08/08/17 08/09/17 08/09/17 08/09/17 07:00 15:00 23:00 07:00 15:00 23:00 Intake Total 240 ml 240 ml 240 ml Balance 240 ml 240 ml 240 ml Intake Oral 240 ml 240 ml 240 ml # Voids 1 3 3 # Bowel Movements 0 0 0 Result Diagram: 08/07/17 1738 08/07/17 1738 Imaging Last Impressions Carotid Artery Ultrasound 08/08/17 0000 Signed Impressions: Service Date/Time: Tuesday, August 08, 2017 11:16 - CONCLUSION: Mild noncalcified plaque seen real-time images. However, hemodynamic parameters are borderline elevated suggesting possible 50-70%% stenoses. Otto Zhang MD Chest X-Ray 08/07/17 1650 Signed Impressions: Service Date/Time: August 16:59 - CONCLUSION: 1. Cardiomegaly. Matt Falk MD Lung Scan-V Nuclear Medicine 08/07/17 0000 Signed Impressions: Service Date/Time: August 19:16 - CONCLUSION: 1. No evidence for pulmonary embolus. Chaz Arguelles MD Lower Extremity Ultrasound 08/07/17 0000 Signed Impressions: Service Date/Time: August 15:14 - CONCLUSION: 1. The study is positive for deep venous thrombosis from the inguinal region to the proximal calf. 2. Large complicated popliteal cyst measuring in excess of 15 cm. 3. Enlarged 6 cm groin node with a preserved fatty hilum. Otto Zhang MD Head CT 08/07/17 0000 Signed Impressions: Service Date/Time: August 17:59 - CONCLUSION: 1. No acute findings in the brain. Otto Zhang MD Procedures None Other Results Laboratory Tests Test 08/07/17 17:38 08/08/17 19:00 White Blood Count 12.3 TH/MM3 Red Blood Count 3.79 MIL/MM3 Hemoglobin 9.5 GM/DL Hematocrit 28.6 % Mean Corpuscular Volume 75.5 FL Mean Corpuscular Hemoglobin 25.1 PG Mean Corpuscular Hemoglobin Concent 33.3 % Red Cell Distribution Width 15.0 % Platelet Count 269 TH/MM3 Mean Platelet Volume 9.8 FL Neutrophils (%) (Auto) 86.9 % Lymphocytes (%) (Auto) 5.1 % Monocytes (%) (Auto) 7.9 % Eosinophils (%) (Auto) 0.0 % Basophils (%) (Auto) 0.1 % Neutrophils # (Auto) 10.7 TH/MM3 Lymphocytes # (Auto) 0.6 TH/MM3 Monocytes # (Auto) 1.0 TH/MM3 Eosinophils # (Auto) 0.0 TH/MM3 Basophils # (Auto) 0.0 TH/MM3 CBC Comment DIFF FINAL Differential Comment Activated Partial Thromboplast Time 75.8 SEC Blood Urea Nitrogen 31 MG/DL Creatinine 1.38 MG/DL Random Glucose 132 MG/DL Total Protein 8.9 GM/DL Albumin 3.0 GM/DL Calcium Level 8.9 MG/DL Magnesium Level 1.4 MG/DL Alkaline Phosphatase 109 U/L Aspartate Amino Transf (AST/SGOT) 51 U/L Alanine Aminotransferase (ALT/SGPT) 39 U/L Total Bilirubin 1.3 MG/DL Sodium Level 134 MEQ/L Potassium Level 3.6 MEQ/L Chloride Level 93 MEQ/L Carbon Dioxide Level 31.0 MEQ/L Anion Gap 10 MEQ/L Estimat Glomerular Filtration Rate 48 ML/MIN Total Creatine Kinase 335 U/L Creatine Kinase MB LESS THAN 0.5 NG/ML Creatine Kinase MB % 0.1 % Troponin I LESS THAN 0.02 NG/ML Lipase 128 U/L Thyroid Stimulating Hormone 3rd Gen 0.907 uIU/ML Prothrombin Time 60.6 SEC Prothromb Time International Ratio 6.1 RATIO Objective Remarks GENERAL: Obese, female lying in bed SKIN: No rashes, ecchymoses or lesions. Cool and dry. HEAD: Atraumatic. Normocephalic. No temporal or scalp tenderness. EYES: Pupils equal round and reactive. Extraocular motions intact. No scleral icterus. No injection or drainage. ENT: Nose without bleeding, purulent drainage or septal hematoma. Throat without erythema, tonsillar hypertrophy or exudate. Uvula midline. Airway patent. NECK: Trachea midline. No JVD or lymphadenopathy. Supple, nontender, no meningeal signs. CARDIOVASCULAR: Regular rate and rhythm without murmurs, gallops, or rubs. RESPIRATORY: Clear to auscultation. Breath sounds equal bilaterally. No wheezes , rales, or rhonchi. GASTROINTESTINAL: Abdomen soft, non-tender, nondistended. No hepato-splenomegaly , or palpable masses. No guarding. MUSCULOSKELETAL: Right lower extremity swollen when compared to left. Tender to palpation. NEUROLOGICAL: Awake and alert. Cranial nerves II through XII intact. Motor and sensory grossly within normal limits. Normal speech. Medications and IVs Current Medications Medications (Trade) Dose Ordered Sig/Deng Route Start Time Stop Time Status Last Admin Sodium Chloride 1,000 ml @ 100 mls/hr Q10H IV 08/07/17 21:52 08/09/17 03:52 (NS Flush) 2 ml UNSCH PRN IV FLUSH 08/07/17 22:00 08/07/17 22:45 (NS Flush) 2 ml BID IV FLUSH 08/08/17 09:00 08/08/17 10:44 (Norvasc) 5 mg DAILY PO 08/08/17 09:00 08/08/17 10:42 (Lasix) 20 mg BID PO 08/08/17 09:00 08/08/17 19:58 (Zaroxolyn) 5 mg DAILY PO 08/08/17 09:00 08/08/17 10:43 (KCl) 30 meq DAILY PO 08/08/17 09:00 08/08/17 10:42 ([place] 5-325 Mg) 1 tab Q4H PRN PO 08/07/17 22:45 08/09/17 01:20 (Morphine Inj) 2 mg Q3H PRN IV PUSH 08/07/17 22:45 08/08/17 19:57 A/P Assessment and Plan 1. Supratherapeutic INR INR 12.3, Status post Vitamin K INR now 2, on hold Coumadin client technical specialist following. 2. Right lower extremity DVT Patient with extensive right lower extremity DVT despite anticoagulation with Coumadin, hematology following. 3. Syncope Unclear history as patient does not remember the event Carotid ultrasound/Echo pending 4. Diabetes mellitus Sliding scale insulin Monitor blood glucose 5. GERD/hypertension Continue home medications 6. BROWN Creatinine 1.38, baseline unknown, Improving. 7. Morbid Obesity strongly recommended diet and exercise 8. questionable leg Cellulitis, as per patient she has chronic edema, on both extremities, suspected Lymphedema. 9. electrolyte derangement replaced and following. FEN Heart healthy diet Electrolytes: Monitor and replete when necessary NS at 125 cc/hr Discharge Planning once cleared by client technical specialist. Tu Eaton MD Aug 09, 2017 08:52
[2017-08-09] MEDS: POTASSIUM CHLORIDE 10 MEQ CONTROLLED RELEASE TAB PO SCH ×2 (08:58→09:13)
[2017-08-09] MEDS: amLODIPine BESYLATE 5 MG TAB PO SCH (08:58)
[2017-08-09] MEDS: SODIUM CHLORIDE 0.9% FLUSH 10 ML FLUSH IV FLUSH SCH ×2 (08:58→20:56)
[2017-08-09] MEDS: FUROSEMIDE 20 MG TAB PO SCH ×3 (08:58→20:56)
[2017-08-09] MEDS: METOLAZONE 5 MG TAB PO SCH (08:58)
[2017-08-09] MEDS ORDERED: VANCOMYCIN INJ 1,250 MG in SODIUM CHLOR 0.9% 250 ML INJ 250 ML IV ONE (09:00)
[2017-08-09] MEDS ORDERED: Vancomycin Consult Pharmacy 1 EA OTHER SCH (09:00)
[2017-08-09] MEDS ORDERED: VANCOMYCIN INJ 1,750 MG in SODIUM CHLORID 0.9% 500 ML INJ 500 ML IV ONE (10:00)
--- NOTE | 2017-08-09 12:03 | RADRPT ---
EXAM DATE/TIME: 08/09/2017 09:18 [facility] COMPARISON: No previous studies available for comparison. EXTERNAL COMPARISON : [facility], US LEG, LEFT VENOUS DOPPLER, September 14, 2009 INDICATIONS : Left leg swelling. MEDICAL HISTORY : Hypertension. . Deep venous thrombosis. Gastritis. Arthritis. Diabetes. Anxiety. Blood tr ansfusion. MRSA. SURGICAL HISTORY : Tubal ligation. Left knee surgery. ENCOUNTER: Subsequent ACUITY: 1 day PAIN SCORE: 6/10 LOCATION: Left leg. TECHNIQUE: Venous ultrasound of the leg was performed from the inguinal ligament to the proximal calf. Real-edwina e, color Doppler and spectral tracing, compression and augmentation techniques were used. FINDINGS: There is normal compressibility of the deep venous system from the inguinal region to the proximal ca lf. No echogenic clot is seen in the lumen of the common femoral, femoral, poplitealveins. The post erior tibial vein is poorly visualized but does demonstrate fill-in with color Doppler. Normal respir atory variation. Extensive subcutaneous edema identified in the calf. CONCLUSION: Extensive subcutaneous edema identified within the calf which limits visualization of the posterior t ibial vein. No DVT is identified. Angelita Schafer MD on August 09, 2017 at 11:57 Board Certified Radiologist. This report was verified electronically.
[2017-08-09] MEDS: PIPERACIL-TAZO 3.375 GM PREMIX 50 ML IV SCH ×3 (13:39→22:00)
[2017-08-09] MEDS: SODIUM CHLORIDE 0.9% FLUSH 10 ML FLUSH IV FLUSH PRN ×2 (13:41→18:04)
[2017-08-09 13:45] LABS: PROTHROMBIN TIME - PATIENT 20.7 SEC (9.8-11.6)
--- NOTE | 2017-08-09 13:55 | PD.ONC.PN ---
Subjective Subjective Remarks T-max 100.3 overnight Patient is wondering if she will have any clots removed from the leg She states the right leg continues to be sore Objective Data Date Time Temp Pulse Resp B/P (MAP) Pulse Ox O2 Delivery O2 Flow Rate FiO2 08/09/17 13:17 91 08/09/17 09:54 88 08/09/17 08:00 99.6 86 20 109/66 (80) 98 08/09/17 07:28 83 08/09/17 04:00 100.3 93 18 90/51 (64) 95 08/09/17 01:20 109/58 (75) 08/09/17 00:00 98.7 100 22 92/51 (65) 97 08/08/17 20:00 100.9 97 20 106/55 (72) 97 105/62 (76) 103/55 (71) 08/08/17 16:00 101.6 98 18 125/59 (81) 98 08/08/17 16:00 88 08/09/17 08/09/17 08/09/17 07:00 15:00 23:00 Intake Total 240 ml Balance 240 ml Result Diagram: 08/07/17 1738 08/07/17 1738 Laboratory Results Laboratory Tests Test 08/08/17 19:00 08/09/17 13:18 Prothrombin Time 60.6 SEC Prothromb Time International Ratio 6.1 RATIO Culture Results Microbiology Date/Time Source Procedure Growth Status 08/09/17 10:36 Blood Peripheral Aerobic Blood Culture Pending Received 08/09/17 10:36 Blood Peripheral Anaerobic Blood Culture Pending Received 08/09/17 10:30 Blood Peripheral Aerobic Blood Culture Pending Received 08/09/17 10:30 Blood Peripheral Anaerobic Blood Culture Pending Received Imaging Studies Last 24 hours Impressions Lower Extremity Ultrasound 08/09/17 0000 Signed Impressions: Service Date/Time: Wednesday, August 09, 2017 09:18 - CONCLUSION: Extensive subcutaneous edema identified within the calf which limits visualization of the posterior tibial vein. No DVT is identified. Angelita Schafer MD Administered Medications Medications (Trade) Dose Ordered Sig/Deng Route PRN Reason Start Time Stop Time Status Last Admin Dose Admin Sodium Chloride 1,000 ml @ 100 mls/hr Q10H IV 08/07/17 21:52 08/09/17 03:52 Sodium Chloride (NS Flush) 2 ml UNSCH PRN IV FLUSH FLUSH AFTER USING IV ACCESS 08/07/17 22:00 08/07/17 22:45 Sodium Chloride (NS Flush) 2 ml BID IV FLUSH 08/08/17 09:00 08/08/17 10:44 Amlodipine Besylate (Norvasc) 5 mg DAILY PO 08/08/17 09:00 08/09/17 08:58 Furosemide (Lasix) 20 mg BID PO 08/08/17 09:00 08/09/17 09:13 Metolazone (Zaroxolyn) 5 mg DAILY PO 08/08/17 09:00 08/08/17 10:43 Potassium Chloride (KCl) 30 meq DAILY PO 08/08/17 09:00 08/09/17 09:13 Acetaminophen/ Hydrocodone Bitart ([place] 5-325 Mg) 1 tab Q4H PRN PO pain > 4 08/07/17 22:45 08/09/17 08:58 Morphine Sulfate (Morphine Inj) 2 mg Q3H PRN IV PUSH breakthrough pain 08/07/17 22:45 08/08/17 19:57 Objective Remarks GENERAL: Older female resting in bed watching [employer] on approach SKIN: Warm and dry. HEAD: Normocephalic. EYES: No injection or drainage. NECK: Supple, trachea midline. CARDIOVASCULAR: Regular rate and rhythm without murmurs. RESPIRATORY: Clear anteriorly. Breathing unlabored at rest. GASTROINTESTINAL: Abdomen soft, non-tender, nondistended. EXTREMITIES: No cyanosis. Patient with large legs bilaterally. MUSCULOSKELETAL: Adequate muscle tone. NEUROLOGICAL: No obvious focal deficit. Awake, alert, and oriented x3. Assessment/Plan Problem List: (1) DVT (deep venous thrombosis) ICD Codes: I82.409 - Acute embolism and thrombosis of unspecified deep veins of unspecified lower extremity Status: Acute Plan: Hx/Workup: Patient has a history of recurrent lower extremity DVTs dating back to 2006. She has had an IVC filter since the summer 2016. It is possible that she has chronic DVTs and currently there is no evidence that she has necessarily failed warfarin. --The patient is positive for DVT on the right extending from the inguinal region to the proximal calf --Left leg negative for DVT --VQ scan shows no evidence for pulmonary embolus (2) Warfarin-induced coagulopathy ICD Codes: D68.32 - Hemorrhagic disorder due to extrinsic circulating anticoagulants; T45.515A - Adverse effect of anticoagulants, initial encounter Status: Acute Plan: --Patient's INR on admission was supratherapeutic at 12.3. --She was given 10 mg of vitamin K subcu on August 07 Assessment 56-year-old female with history of lower extremity DVTs admitted with swelling and pain to the right leg that appears to be cellulitis Plan 1. Continue antibiotic for likely cellulitis 2. Await results of INR today 3. Monitor CBC Attending Statement The exam, history, and the medical decision-making described in the above note were completed with the assistance of the mid-level provider. I reviewed and agree with the findings presented. I attest that I had a [id number] encounter with the patient on the same day, and personally performed and documented my assessment and findings in the medical record. Discussed with pt and her family over the phone her dx DVT and chronic post phlebitic syndrome. Pt under the impression that she can have surgery to remove the clot. Discussed that leg elevation, weight loss may help. Pt/INR 2.1, restart coumadin. Impressed up patient and family that this is a chronic condition. Problem Qualifiers (1) DVT (deep venous thrombosis): Qualified Codes: I82.4Y1 - Acute embolism and thrombosis of unspecified deep veins of right proximal lower extremity Vandana Curry Aug 09, 2017 13:55 Cleopatra Mosher MD Aug 09, 2017 16:45
[2017-08-09] MEDS: WARFARIN SOD 5 MG TAB PO SCH (14:59)
[2017-08-09 19:06] LABS: AUTOMATED NEUTROPHIL # 7.4 TH/MM3 (1.8-7.7); BASOPHIL # 0.1 TH/MM3 (0-0.2); BASOPHIL % 0.6 % (0.0-2.0); EOSINOPHIL # 0.1 TH/MM3 (0-0.4); EOSINOPHIL % 0.7 % (0.0-4.0); HEMATOCRIT 24.1 % (35.0-46.0); LYMPH % 10.9 % (9.0-44.0); MEAN CELL VOLUME 75.9 FL (80.0-100.0); MEAN CORPUSCULAR HEMOGLOBIN 25.1 PG (27.0-34.0); MEAN CORPUSCULAR HGB CONC 33.1 % (32.0-36.0); MEAN PLATELET VOLUME 8.9 FL (7.0-11.0); MONO % 6.3 % (0.0-8.0); MONOCYTE # 0.6 TH/MM3 (0-0.9); NEUT % 81.5 % (16.0-70.0); PLATELET COUNT 239 TH/MM3 (150-450); RED BLOOD COUNT 3.18 MIL/MM3 (4.00-5.30); RED CELL DISTRIBUTION WIDTH 15.1 % (11.6-17.2); WHITE BLOOD COUNT 9.1 TH/MM3 (4.0-11.0)
[2017-08-09 20:05] LABS: ALBUMIN 2.7 GM/DL (3.4-5.0); ALKALINE PHOSPHATASE 96 U/L (45-117); ALT (GPT) 38 U/L (10-53); AST (GOT) 40 U/L (15-37); BICARBONATE 31.3 MEQ/L (21.0-32.0); BLOOD UREA NITROGEN 23 MG/DL (7-18); CALCIUM 7.9 MG/DL (8.5-10.1); CHLORIDE 95 MEQ/L (98-107); CREATININE 1.18 MG/DL (0.50-1.00); GLOMERULAR FILTRATION RATE 57 ML/MIN (>89); GLUCOSE,RANDOM 125 MG/DL (74-106); SODIUM (NA) 135 MEQ/L (136-145); TOTAL BILIRUBIN ADULT 1.1 MG/DL (0.2-1.0); TOTAL PROTEIN 8.1 GM/DL (6.4-8.2)
[2017-08-09] MEDS ORDERED: POTASSIUM CHLORIDE 20 MEQ CONTROLLED RELEASE TAB PO ONE (20:30)
[2017-08-09] MEDS: POTASSIUM CHLOR 20 MEQ PREMIX 100 ML IV SCH ×2 (20:56→22:30)
[2017-08-10] VITALS (16 sets, daily range): BP systolic 100–187; BP diastolic 54–97; PULSE 75–110; RESP 18–20; TEMP 97.8–100.8; O2SAT 94–99
[2017-08-10] MEDS: ACETAMINOPHEN/HYDROcodone 325 MG/5 MG TAB PO PRN ×5 (00:45→20:07)
[2017-08-10] MEDS: PIPERACIL-TAZO 3.375 GM PREMIX 50 ML IV SCH ×3 (04:00→14:37)
[2017-08-10] MEDS: SODIUM CHLORIDE 0.9% FLUSH 10 ML FLUSH IV FLUSH SCH ×2 (08:52→20:07)
[2017-08-10] MEDS: amLODIPine BESYLATE 5 MG TAB PO SCH (08:52)
[2017-08-10] MEDS: POTASSIUM CHLORIDE 10 MEQ CONTROLLED RELEASE TAB PO SCH (08:52)
[2017-08-10] MEDS: FUROSEMIDE 20 MG TAB PO SCH ×2 (08:52→20:07)
[2017-08-10] MEDS: METOLAZONE 5 MG TAB PO SCH (08:53)
[2017-08-10] MEDS ORDERED: LACTULOSE SYRUP 20 GM/30 ML CUP PO ONE (09:00)
[2017-08-10] MEDS ORDERED: SOD PHOSPHATE/SOD BIPHOSPHATE (ADULT) ENEMA 133ML RECTAL PRN (09:15)
[2017-08-10] MEDS ORDERED: GLYCERIN ADULT 2 GM SUPP RECTAL ONE (10:00)
[2017-08-10] MEDS: SODIUM CHLOR 0.9% 1000 ML INJ 1,000 ML IV SCH (10:24)
[2017-08-10] MEDS ORDERED: VANCOMYCIN INJ 1,500 MG in SODIUM CHLORID 0.9% 500 ML INJ 500 ML IV SCH (11:00)
[2017-08-10] MEDS: MORPHINE SULFATE 2 MG/ML SYRINGE IV PUSH PRN (13:04)
[2017-08-10 14:09] LABS: MAGNESIUM 1.4 MG/DL (1.5-2.5); PHOSPHORUS 1.9 MG/DL (2.5-4.9)
[2017-08-10] MEDS: WARFARIN SOD 5 MG TAB PO SCH (14:37)
[2017-08-10] MEDS ORDERED: POTASSIUM CHLORIDE 20 MEQ CONTROLLED RELEASE TAB PO ONE (16:00)
--- NOTE | 2017-08-10 16:04 | HHI.PR ---
Subjective Remarks 56-year-old female with a past medical history significant for borderline mental retardation, adjustment reaction, anxiety, diabetes, GERD, hypertension and history of previously diagnosed DVT was brought to the emergency department for evaluation of a syncopal episode. The patient has a known DVT in her right lower extremity and was having an outpatient ultrasound done yesterday when she had a syncopal episode that was witnessed by staff and family. The patient is an extremely poor historian and is unable to provide me with any information. She states she is having pain in her right lower extremity, worse in the calf region and states that that is why she came to the emergency department today. She denies any other complaints at this time. She states that her DVT was diagnosed yesterday and she was started on blood thinner. The patient is on Coumadin and has a supratherapeutic INR of 12.3. She denies chest pain or shortness of breath. No abdominal pain. No nausea/vomiting/diarrhea. States she does have difficulty walking secondary to right lower extremity pain. 08/09: Echocardiogram EF 55%. Seen by Doctor Ronni Smith, the patient has recurrent lower extremity DVT, Bilateral 2006, IVC filter in October 2006, has Morbid Obesity, now with Right lower extremity DVT, Right calf cellulitis, recommended to start antibiotics. recommended Eliquis or Xarelto. special attention to her renal function. 08/10: Stable in his bedroom, discussed with patient and nurse Miss Anderson present in the room, also her Daughter Miss Ashley Petersen given replacement for electrolytes discussed about her Lymphedema will de escalate antibiotics Vancomycin and Zosyn to Ceftriaxone, and follow blood culture. No nausea, vomit or diarrhea. Objective Vital Signs Date Time Temp Pulse Resp B/P (MAP) Pulse Ox O2 Delivery O2 Flow Rate FiO2 08/10/17 15:27 94 08/10/17 13:54 87 08/10/17 12:13 77 08/10/17 12:00 97.8 95 18 187/97 (127) 94 08/10/17 10:48 110 08/10/17 09:32 92 08/10/17 08:00 99.0 81 18 116/56 (76) 94 08/10/17 07:38 80 08/10/17 04:00 98.8 79 18 100/54 (69) 99 08/10/17 00:00 98.5 75 18 103/56 (72) 97 08/09/17 20:50 80 08/09/17 20:00 99.2 84 20 100/54 (69) 99 93/52 (66) 91/52 (65) 08/09/17 18:57 98 08/09/17 17:26 79 08/09/17 17:05 80 08/09/17 16:00 99.2 86 20 108/60 (76) 97 I/O 08/09/17 08/09/17 08/09/17 08/10/17 08/10/17 08/10/17 07:00 15:00 23:00 07:00 15:00 23:00 Intake Total 240 ml 700 ml 480 ml 5715 ml Output Total 400 ml Balance 240 ml 700 ml 80 ml 5715 ml Intake Oral 240 ml 700 ml 480 ml IV Total 5715 ml Output Urine Total 400 ml # Voids 3 4 1 # Bowel Movements 0 Result Diagram: 08/09/17 1857 08/10/17 1247 Imaging Last Impressions Lower Extremity Ultrasound 08/09/17 0000 Signed Impressions: Service Date/Time: Wednesday, August 09, 2017 09:18 - CONCLUSION: Extensive subcutaneous edema identified within the calf which limits visualization of the posterior tibial vein. No DVT is identified. Angelita Schafer MD Carotid Artery Ultrasound 08/08/17 0000 Signed Impressions: Service Date/Time: Tuesday, August 08, 2017 11:16 - CONCLUSION: Mild noncalcified plaque seen real-time images. However, hemodynamic parameters are borderline elevated suggesting possible 50-70%% stenoses. Otto Zhang MD Chest X-Ray 08/07/17 1650 Signed Impressions: Service Date/Time: August 16:59 - CONCLUSION: 1. Cardiomegaly. Matt Falk MD Lung Scan- Nuclear Medicine 08/07/17 0000 Signed Impressions: Service Date/Time: August 19:16 - CONCLUSION: 1. No evidence for pulmonary embolus. Chaz Arguelles MD Head CT 08/07/17 0000 Signed Impressions: Service Date/Time: August 17:59 - CONCLUSION: 1. No acute findings in the brain. Otto Zhang MD Procedures None Other Results Laboratory Tests Test 08/07/17 17:38 08/08/17 19:00 08/09/17 13:18 08/09/17 18:57 Activated Partial Thromboplast Time 75.8 SEC Total Creatine Kinase 335 U/L Creatine Kinase MB LESS THAN 0.5 NG/ML Creatine Kinase MB % 0.1 % Troponin I LESS THAN 0.02 NG/ML Lipase 128 U/L Thyroid Stimulating Hormone 3rd Gen 0.907 uIU/ML Prothrombin Time 20.7 SEC Prothromb Time International Ratio 2.0 RATIO White Blood Count 9.1 TH/MM3 Red Blood Count 3.18 MIL/MM3 Hemoglobin 8.0 GM/DL Hematocrit 24.1 % Mean Corpuscular Volume 75.9 FL Mean Corpuscular Hemoglobin 25.1 PG Mean Corpuscular Hemoglobin Concent 33.1 % Red Cell Distribution Width 15.1 % Platelet Count 239 TH/MM3 Mean Platelet Volume 8.9 FL Neutrophils (%) (Auto) 81.5 % Lymphocytes (%) (Auto) 10.9 % Monocytes (%) (Auto) 6.3 % Eosinophils (%) (Auto) 0.7 % Basophils (%) (Auto) 0.6 % Neutrophils # (Auto) 7.4 TH/MM3 Lymphocytes # (Auto) 1.0 TH/MM3 Monocytes # (Auto) 0.6 TH/MM3 Eosinophils # (Auto) 0.1 TH/MM3 Basophils # (Auto) 0.1 TH/MM3 CBC Comment DIFF FINAL Differential Comment Blood Urea Nitrogen 23 MG/DL Creatinine 1.18 MG/DL Random Glucose 125 MG/DL Total Protein 8.1 GM/DL Albumin 2.7 GM/DL Calcium Level 7.9 MG/DL Alkaline Phosphatase 96 U/L Aspartate Amino Transf (AST/SGOT) 40 U/L Alanine Aminotransferase (ALT/SGPT) 38 U/L Total Bilirubin 1.1 MG/DL Sodium Level 135 MEQ/L Potassium Level 2.7 MEQ/L Chloride Level 95 MEQ/L Carbon Dioxide Level 31.3 MEQ/L Anion Gap 9 MEQ/L Estimat Glomerular Filtration Rate 57 ML/MIN Test 08/10/17 12:47 Potassium Level 3.6 MEQ/L Phosphorus Level 1.9 MG/DL Magnesium Level 1.4 MG/DL Objective Remarks GENERAL: Obese, female lying in bed SKIN: No rashes, ecchymoses or lesions. Cool and dry. HEAD: Atraumatic. Normocephalic. No temporal or scalp tenderness. EYES: Pupils equal round and reactive. Extraocular motions intact. No scleral icterus. No injection or drainage. ENT: Nose without bleeding, purulent drainage or septal hematoma. Throat without erythema, tonsillar hypertrophy or exudate. Uvula midline. Airway patent. NECK: Trachea midline. No JVD or lymphadenopathy. Supple, nontender, no meningeal signs. CARDIOVASCULAR: Regular rate and rhythm without murmurs, gallops, or rubs. RESPIRATORY: Clear to auscultation. Breath sounds equal bilaterally. No wheezes , rales, or rhonchi. GASTROINTESTINAL: Abdomen soft, non-tender, nondistended. No hepato-splenomegaly , or palpable masses. No guarding. MUSCULOSKELETAL: Right lower extremity swollen when compared to left. Tender to palpation. NEUROLOGICAL: Awake and alert. Cranial nerves II through XII intact. Motor and sensory grossly within normal limits. Normal speech. Medications and IVs Current Medications Medications (Trade) Dose Ordered Sig/Deng Route Start Time Stop Time Status Last Admin Sodium Chloride 1,000 ml @ 100 mls/hr Q10H IV 08/07/17 21:52 08/10/17 10:24 (NS Flush) 2 ml UNSCH PRN IV FLUSH 08/07/17 22:00 08/09/17 18:04 (NS Flush) 2 ml BID IV FLUSH 08/08/17 09:00 08/08/17 10:44 (Norvasc) 5 mg DAILY PO 08/08/17 09:00 08/10/17 08:52 (Lasix) 20 mg BID PO 08/08/17 09:00 08/10/17 08:52 (Zaroxolyn) 5 mg DAILY PO 08/08/17 09:00 08/08/17 10:43 (KCl) 30 meq DAILY PO 08/08/17 09:00 08/10/17 08:52 ([place] 5-325 Mg) 1 tab Q4H PRN PO 08/07/17 22:45 08/10/17 12:34 (Morphine Inj) 2 mg Q3H PRN IV PUSH 08/07/17 22:45 08/10/17 13:04 Piperacillin Sod/ Tazobactam Sod 50 ml @ 100 mls/hr Q6H IV 08/09/17 10:00 08/10/17 14:37 Pharmacy Profile Note 0 ml @ 0 mls/hr UNSCH OTHER 08/09/17 09:00 (Coumadin) 5 mg DAILY@1600 PO 08/09/17 16:00 08/10/17 14:37 Vancomycin HCl 1500 mg/Sodium Chloride 515 ml @ 250 mls/hr Q24H IV 08/10/17 11:00 08/10/17 12:33 Miscellaneous Information SPECIFIC LAB TO BE DRAWN:VANCO TROUGH DATE TO BE DRBrad.. ONCE ONCE .XX 08/12/17 10:45 08/12/17 10:46 (Fleets Enema (Adult)) 133 ml UNSCH PRN RECTAL 08/10/17 09:15 A/P Assessment and Plan 1. Supratherapeutic INR INR 12.3, Status post Vitamin K INR now 2, on hold Coumadin smoke and flame specialist following. continued Warfarin asked for INR stat and follow recommendations by smoke and flame specialist. 2. Right lower extremity DVT Patient with extensive right lower extremity DVT despite anticoagulation with Coumadin, hematology following. she has history of recurrent lower extremity DVTs, dating back 2006, She has IVC filter, The patient is positive for DVT on the right extending from the inguinal region to the proximal calf No pulmonary embolus, 3. Syncope Unclear history as patient does not remember the event Carotid ultrasound did not found surgical pathology, Echocardiogram EF 50-55%. no systolic dysfunction. 4. Diabetes mellitus Sliding scale insulin, follow Hemoglobin A1C. 5. GERD/hypertension Continue home medications 6. BROWN Creatinine 1.38, baseline unknown, Improving. 7. Morbid Obesity strongly recommended diet and exercise 8. questionable leg Cellulitis, as per patient she has chronic edema, on both extremities, suspected Lymphedema. removed Vancomycin and Zosyn will continue Ceftriaxone and de escalate suspected Lymphedema chronic. 9. electrolyte derangement replaced and following. 10. Uncontrolled Hypertension discontinued IV fluids, continue Amlodipine and diuretics and Clonidine 0.1 mg as needed FEN Heart healthy diet DVT prophylaxis with Warfarin. INR stat. Discharge Planning once cleared by smoke and flame specialist. Tu Eaton MD Aug 10, 2017 16:04
[2017-08-10] MEDS ORDERED: cloNIDine HCL 0.1 MG TAB PO PRN (16:15)
[2017-08-10] MEDS ORDERED: GLUCAGON 1 MG/ML VIAL OTHER PRN (16:15)
[2017-08-10] MEDS ORDERED: DEXTROSE 50% IN WATER 50 ML VIAL(D50) IV PUSH PRN (16:15)
[2017-08-10] MEDS: MAGNESIUM SULFATE 1 GM PREMIX 100 ML IV SCH ×2 (16:56→20:06)
[2017-08-10] MEDS ORDERED: POTASSIUM PHOSPHATE INJ 15 MMOL in SODIUM CHLORIDE 0.9% INJ 150 ML IV ONE (17:00)
[2017-08-10] MEDS: INSULIN ASPART SUPPLEMENTAL SCALE SQ SCH ×2 (17:00→20:16)
[2017-08-10] MEDS ORDERED: cefTRIAXone INJ 1,000 MG in SODIUM CHLORIDE 0.9% INJ 100 ML IV SCH (17:00)
[2017-08-10 18:09] LABS: INTERNATIONAL NORMALIZED RATIO 1.8 RATIO; PROTHROMBIN TIME - PATIENT 18.6 SEC (9.8-11.6)
[2017-08-10 18:25] LABS: CHOLESTEROL 123 MG/DL (120-200); TRIGLYCERIDES 75 MG/DL (42-150)
[2017-08-10 18:27] LABS: CHOLESTEROL/ HDL RATIO 3.02 RATIO; HDL CHOLESTEROL 40.6 MG/DL (40.0-60.0); LDL CHOLESTEROL 67 MG/DL (0-99)
[2017-08-11] VITALS (10 sets, daily range): BP systolic 92–133; BP diastolic 54–63; PULSE 79–111; RESP 18–19; TEMP 98.4–100.2; O2SAT 92–99
[2017-08-11] MEDS: ACETAMINOPHEN/HYDROcodone 325 MG/5 MG TAB PO PRN ×2 (01:25→09:24)
[2017-08-11] MEDS: INSULIN ASPART SUPPLEMENTAL SCALE SQ SCH ×4 (08:00→21:49)
[2017-08-11 08:08] LABS: INTERNATIONAL NORMALIZED RATIO 1.8 RATIO; PROTHROMBIN TIME - PATIENT 18.4 SEC (9.8-11.6)
[2017-08-11] MEDS: METOLAZONE 5 MG TAB PO SCH (09:16)
[2017-08-11] MEDS: FUROSEMIDE 20 MG TAB PO SCH ×2 (09:17→21:47)
[2017-08-11] MEDS: amLODIPine BESYLATE 5 MG TAB PO SCH (09:17)
[2017-08-11] MEDS: POTASSIUM CHLORIDE 10 MEQ CONTROLLED RELEASE TAB PO SCH (09:18)
[2017-08-11] MEDS: SODIUM CHLORIDE 0.9% FLUSH 10 ML FLUSH IV FLUSH SCH ×2 (09:18→21:50)
[2017-08-11] MEDS ORDERED: KETOROLAC TROMETHAMINE 30 MG/ML (IVP) VIAL IV PUSH ONE (09:45)
[2017-08-11 10:06] LABS: AUTOMATED NEUTROPHIL # 6.6 TH/MM3 (1.8-7.7); BASOPHIL % 0.4 % (0.0-2.0); EOSINOPHIL # 0.1 TH/MM3 (0-0.4); EOSINOPHIL % 0.9 % (0.0-4.0); HEMATOCRIT 22.6 % (35.0-46.0); HEMOGLOBIN 7.6 GM/DL (11.6-15.3); LYMPH % 7.8 % (9.0-44.0); LYMPHOCYTE # 0.6 TH/MM3 (1.0-4.8); MEAN CORPUSCULAR HEMOGLOBIN 25.6 PG (27.0-34.0); MEAN CORPUSCULAR HGB CONC 33.7 % (32.0-36.0); MEAN PLATELET VOLUME 8.9 FL (7.0-11.0); MONO % 6.3 % (0.0-8.0); MONOCYTE # 0.5 TH/MM3 (0-0.9); NEUT % 84.6 % (16.0-70.0); PLATELET COUNT 271 TH/MM3 (150-450); RED BLOOD COUNT 2.98 MIL/MM3 (4.00-5.30); RED CELL DISTRIBUTION WIDTH 15.2 % (11.6-17.2); WHITE BLOOD COUNT 7.8 TH/MM3 (4.0-11.0)
[2017-08-11 10:49] LABS: BICARBONATE 34.1 MEQ/L (21.0-32.0); CALCIUM 8.3 MG/DL (8.5-10.1); CREATININE 0.76 MG/DL (0.50-1.00); MAGNESIUM 1.7 MG/DL (1.5-2.5)
--- NOTE | 2017-08-11 10:50 | HHI.PR ---
Subjective Remarks Pt seen and examined. Tmax 100.8 yesterday evening. Patient reports she is not feeling well. Endorses significant pain in her RLE. States the [place] doesn't help but nursing concerned of giving morphine as it dropped her BP. Pt denies chest pain, shortness of breath, chills, decreased appetite, nausea, or vomiting. Objective Vital Signs Date Time Temp Pulse Resp B/P (MAP) Pulse Ox O2 Delivery O2 Flow Rate FiO2 08/11/17 07:25 98.4 84 18 104/58 (73) 97 08/11/17 04:00 99.5 83 18 101/56 (71) 92 08/11/17 00:00 100.2 88 19 111/57 (75) 98 08/10/17 20:32 88 08/10/17 20:00 100.8 90 20 107/59 (75) 98 08/10/17 17:57 88 08/10/17 17:29 81 08/10/17 16:25 83 08/10/17 16:00 98.1 83 18 100/54 (69) 97 08/10/17 15:27 94 08/10/17 13:54 87 08/10/17 12:13 77 08/10/17 12:00 97.8 95 18 101/60 (74) 96 08/10/17 10:48 110 I/O 08/10/17 08/10/17 08/10/17 08/11/17 08/11/17 08/11/17 07:00 15:00 23:00 07:00 15:00 23:00 Intake Total 480 ml 5715 ml 800 ml 1360 ml Output Total 400 ml Balance 80 ml 5715 ml 800 ml 1360 ml Intake Oral 480 ml 800 ml 1360 ml IV Total 5715 ml Output Urine Total 400 ml # Voids 1 4 7 # Bowel Movements 1 3 Result Diagram: 08/11/17 0933 08/10/17 1247 Imaging Lower Extremity Ultrasound 08/09/17 0000 Signed Impressions: Service Date/Time: Wednesday, August 09, 2017 09:18 - CONCLUSION: Extensive subcutaneous edema identified within the calf which limits visualization of the posterior tibial vein. No DVT is identified. Angelita Schafer MD Carotid Artery Ultrasound 08/08/17 0000 Signed Impressions: Service Date/Time: Tuesday, August 08, 2017 11:16 - CONCLUSION: Mild noncalcified plaque seen real-time images. However, hemodynamic parameters are borderline elevated suggesting possible 50-70%% stenoses. Otto Zhang MD Chest X-Ray 08/07/17 1650 Signed Impressions: Service Date/Time: August 16:59 - CONCLUSION: 1. Cardiomegaly. Matt Falk MD Lung Scan-V Nuclear Medicine 08/07/17 0000 Signed Impressions: Service Date/Time: August 19:16 - CONCLUSION: 1. No evidence for pulmonary embolus. Chaz Arguelles MD Head CT 08/07/17 0000 Signed Impressions: Service Date/Time: August 17:59 - CONCLUSION: 1. No acute findings in the brain. Otto Zhang MD Procedures None Objective Remarks GENERAL: Morbidly obese female laying in bed in NAD. SKIN: Warm and dry. HEENT: Pupils equal and round. MMM. NECK: Supple no tender LAD or JVD. HEART: RRR no m/r/g. LUNGS: CTAB without wheezes or crackles. ABDOMEN: Soft, NT, ND. EXTREMITIES: B/L LE edematous and enlarged. Warmth, induration, and tenderness with minimal palpation over R calf and schwab. NEURO: Awake and alert. A/P Problem List: (1) Cellulitis of right lower extremity ICD Code: L03.115 - Cellulitis of right lower limb (2) Syncope ICD Code: R55 - Syncope and collapse Status: Acute (3) Hypokalemia ICD Code: E87.6 - Hypokalemia Status: Acute (4) DVT (deep venous thrombosis) ICD Code: I82.409 - Acute embolism and thrombosis of unspecified deep veins of unspecified lower extremity Status: Chronic (5) Hyperglycemia ICD Code: R73.9 - Hyperglycemia, unspecified Status: Acute Assessment and Plan 56 YOAAF presented on 08/08 after having a witnessed syncopal episode. On admission she was found to have a supratherapeutic INR of 12.3. 1. Syncope - Head CT negative - Carotid U/S with mild noncalcified plaque with borderline hemodynamic parameters suggesting possible 50-70% stenosis - Echo with low-normal EF of 50-55% and mild concentric LVH - ACS ruled out - Orthostatics borderline with a nine point drop in systolic BP from supine to standing, no significant change in HR - Etiology syncope possibly vasovagal vs dehydration as the patient states she hadn't eaten in four days prior to the episode - Encourage adequate hydration 2. Supratherapeutic INR - Resolved s/p vitamin K - INR 1.8 today after restarting Coumadin - Goal is 2-3 - Continue Coumadin and recheck tomorrow 3. Chronic RLE DVT - Anticoagulated on Coumadin which hematology recommends continuing as it is impossible to tell if there is an acute DVT - D/W patient the chronicity of her clot burden and that she is going to continue having discomfort and swelling - Elevate leg - Encourage weight loss 4. Cellulitis RLE - Pt initially started on broad spectrum with Vanc and Zosyn, de-escalated to Rocephin - Will continue to de-escalate abx in preparation for discharge and start Bactrim - Blood cultures negative, no leukocytosis - No active drainage - Low-grade temperature overnight, Tylenol PRN 5. Diabetes mellitus - SSI per protocol - Check A1c 6. HTN - BPs have been on the lower end - D/C Amlodipine and replace with low-dose Lisinopril mostly for renal protection in light of DM - Monitor since orthostatics were borderline 7. LE edema - Continue home Lasix and metolazone - Monitor electrolytes - Continue KCl, may need to increase dose 8. BROWN - Renal function improving - Avoid nephrotoxic agents 9. Anemia - Likely anemia of chronic disease but H&H gradually decreasing (from 9.5 on admission to 7.6 today) - Monitor closely - No signs of active bleeding - Check Hemoccult DVT prophylaxis: on Coumadin Discharge Planning Possibly tomorrow pending clinical response to antibiotics and monitoring of H& H which is dropping Problem Qualifiers (1) Syncope: Qualified Codes: R55 - Syncope and collapse (2) DVT (deep venous thrombosis): Qualified Codes: I82.4Y1 - Acute embolism and thrombosis of unspecified deep veins of right proximal lower extremity Nancy Trinidad MD Aug 11, 2017 10:50
[2017-08-11] MEDS: SULFAMETHOXAZOLE-TRIMETHOPRIM DS 800-160 MG TAB PO SCH ×2 (10:53→21:45)
--- NOTE | 2017-08-11 14:36 | PD.ONC.PN ---
Subjective Subjective Remarks Tmax 100.8 overnight. Patient complaining of continued pain in right calf/leg. can walk with walker with assistance but it is painful. very concerned about not being able to walk when she leaves the hospital. Objective Data Date Time Temp Pulse Resp B/P (MAP) Pulse Ox O2 Delivery O2 Flow Rate FiO2 08/11/17 11:55 18 08/11/17 11:45 98.8 84 18 133/56 (81) 97 08/11/17 10:24 18 08/11/17 08:00 79 08/11/17 07:25 98.4 84 18 104/58 (73) 97 08/11/17 04:00 99.5 83 18 101/56 (71) 92 08/11/17 00:00 100.2 88 19 111/57 (75) 98 08/10/17 20:32 88 08/10/17 20:00 100.8 90 20 107/59 (75) 98 08/10/17 17:57 88 08/10/17 17:29 81 08/10/17 16:25 83 08/10/17 16:00 98.1 83 18 100/54 (69) 97 08/10/17 15:27 94 08/11/17 08/11/17 08/11/17 07:00 15:00 23:00 Intake Total 1360 ml 100 ml Balance 1360 ml 100 ml Result Diagram: 08/11/17 0933 08/11/17 0933 Laboratory Results Laboratory Tests Test 08/10/17 16:47 08/11/17 06:58 08/11/17 09:33 Prothrombin Time 18.6 SEC 18.4 SEC Prothromb Time International Ratio 1.8 RATIO 1.8 RATIO Triglycerides Level 75 MG/DL Cholesterol Level 123 MG/DL LDL Cholesterol 67 MG/DL HDL Cholesterol 40.6 MG/DL Cholesterol/HDL Ratio 3.02 RATIO White Blood Count 7.8 TH/MM3 Red Blood Count 2.98 MIL/MM3 Hemoglobin 7.6 GM/DL Hematocrit 22.6 % Mean Corpuscular Volume 76.0 FL Mean Corpuscular Hemoglobin 25.6 PG Mean Corpuscular Hemoglobin Concent 33.7 % Red Cell Distribution Width 15.2 % Platelet Count 271 TH/MM3 Mean Platelet Volume 8.9 FL Neutrophils (%) (Auto) 84.6 % Lymphocytes (%) (Auto) 7.8 % Monocytes (%) (Auto) 6.3 % Eosinophils (%) (Auto) 0.9 % Basophils (%) (Auto) 0.4 % Neutrophils # (Auto) 6.6 TH/MM3 Lymphocytes # (Auto) 0.6 TH/MM3 Monocytes # (Auto) 0.5 TH/MM3 Eosinophils # (Auto) 0.1 TH/MM3 Basophils # (Auto) 0.0 TH/MM3 CBC Comment DIFF FINAL Differential Comment Blood Urea Nitrogen 12 MG/DL Creatinine 0.76 MG/DL Random Glucose 135 MG/DL Calcium Level 8.3 MG/DL Magnesium Level 1.7 MG/DL Sodium Level 138 MEQ/L Potassium Level 3.3 MEQ/L Chloride Level 97 MEQ/L Carbon Dioxide Level 34.1 MEQ/L Anion Gap 7 MEQ/L Estimat Glomerular Filtration Rate 95 ML/MIN Culture Results Microbiology Date/Time Source Procedure Growth Status 08/09/17 10:36 Blood Peripheral Aerobic Blood Culture - Preliminary NO GROWTH IN 2 DAYS Resulted 08/09/17 10:36 Blood Peripheral Anaerobic Blood Culture - Preliminary NO GROWTH IN 2 DAYS Resulted 08/09/17 10:30 Blood Peripheral Aerobic Blood Culture - Preliminary NO GROWTH IN 2 DAYS Resulted 08/09/17 10:30 Blood Peripheral Anaerobic Blood Culture - Preliminary NO GROWTH IN 2 DAYS Resulted Administered Medications Medications (Trade) Dose Ordered Sig/Deng Route PRN Reason Start Time Stop Time Status Last Admin Dose Admin Sodium Chloride (NS Flush) 2 ml UNSCH PRN IV FLUSH FLUSH AFTER USING IV ACCESS 08/07/17 22:00 08/09/17 18:04 Sodium Chloride (NS Flush) 2 ml BID IV FLUSH 08/08/17 09:00 08/11/17 09:18 Furosemide (Lasix) 20 mg BID PO 08/08/17 09:00 08/11/17 09:17 Metolazone (Zaroxolyn) 5 mg DAILY PO 08/08/17 09:00 08/11/17 09:16 Potassium Chloride (KCl) 30 meq DAILY PO 08/08/17 09:00 08/11/17 09:18 Acetaminophen/ Hydrocodone Bitart ([place] 5-325 Mg) 1 tab Q4H PRN PO pain > 4 08/07/17 22:45 08/11/17 09:24 Morphine Sulfate (Morphine Inj) 2 mg Q3H PRN IV PUSH breakthrough pain 08/07/17 22:45 08/10/17 13:04 Warfarin Sodium (Coumadin) 5 mg DAILY@1600 PO 08/09/17 16:00 08/10/17 14:37 Insulin Aspart (NovoLOG SUPPLEMENTAL SCALE) 1 ACHS SLIDING SCALE SQ 08/10/17 17:00 08/10/17 20:16 Trimethoprim/ Sulfamethoxazole (Bactrim Ds 800-160 Mg) 1 tab Q12HR PO 08/11/17 11:00 08/11/17 10:53 Objective Remarks GENERAL: Pleasant obese female, lying supine in bed resting. SKIN: Warm and dry. HEAD: Normocephalic. EYES: No scleral icterus. No injection or drainage. NECK: Supple, trachea midline. CARDIOVASCULAR: +S1/S2 RESPIRATORY: anterior chopra clear. GASTROINTESTINAL: Abdomen soft, non-tender, nondistended. EXTREMITIES: No cyanosis. bilateral lower extremities are edematous. the right lower extremity has erythema and tenderness in the medial calf. MUSCULOSKELETAL: Adequate muscle tone. NEUROLOGICAL: awake and alert. normal speech. moving extremities. Assessment/Plan Problem List: (1) DVT (deep venous thrombosis) ICD Codes: I82.409 - Acute embolism and thrombosis of unspecified deep veins of unspecified lower extremity Status: Chronic Plan: --will start once close to discharge Hx/Workup: Patient has a history of recurrent lower extremity DVTs dating back to 2006. She has had an IVC filter since the summer 2016. It is possible that she has chronic DVTs and currently there is no evidence that she has necessarily failed warfarin. --The patient is positive for DVT on the right extending from the inguinal region to the proximal calf --Left leg negative for DVT --VQ scan shows no evidence for pulmonary embolus (2) Microcytic anemia ICD Codes: D50.9 - Iron deficiency anemia, unspecified Plan: --obtain anemia studies, Hemoccult Assessment 56-year-old female with history of lower extremity DVTs admitted with swelling and pain to the right leg that appears to be cellulitis Plan 1. can switch from warfarin to Eliquis, but I want to wait for the anemia workup first. will hold todays' warfarin dose 2. monitor CBC, coags 3. obtain anemia studies, Hemoccult Problem Qualifiers (1) DVT (deep venous thrombosis): Qualified Codes: I82.4Y1 - Acute embolism and thrombosis of unspecified deep veins of right proximal lower extremity Maribel Motley Aug 11, 2017 14:36
[2017-08-11 16:04] LABS: HEMOGLOBIN A1C 6.6 % (4.3-6.0)
[2017-08-11 16:25] LABS: HEMOGLOBIN A1C 6.7 % (4.3-6.0)
[2017-08-11] MEDS: KETOROLAC TROMETHAMINE 30 MG/ML (IVP) VIAL IV PUSH PRN (17:35)
[2017-08-11 18:38] LABS: % SATURATION IRON PROFILE 44.1 % (20-50); IRON (FE) 71 MCG/DL (50-170); TOTAL IRON BINDING CAPACITY 161 MCG/DL (250-450)
[2017-08-11 19:03] LABS: FERRITIN 833 NG/ML (8-252); FOLATE 6.3 NG/ML (3.1-17.5)
[2017-08-12] VITALS (14 sets, daily range): BP systolic 88–109; BP diastolic 49–60; PULSE 76–95; RESP 16–20; TEMP 98.4–99.5; O2SAT 94–100
[2017-08-12] MEDS: KETOROLAC TROMETHAMINE 30 MG/ML (IVP) VIAL IV PUSH PRN ×2 (00:08→06:03)
[2017-08-12 05:03] LABS: AUTOMATED NEUTROPHIL # 6.1 TH/MM3 (1.8-7.7); BASOPHIL % 0.4 % (0.0-2.0); EOSINOPHIL # 0.1 TH/MM3 (0-0.4); EOSINOPHIL % 1.4 % (0.0-4.0); LYMPH % 8.4 % (9.0-44.0); LYMPHOCYTE # 0.6 TH/MM3 (1.0-4.8); MEAN CELL VOLUME 75.9 FL (80.0-100.0); MEAN CORPUSCULAR HEMOGLOBIN 25.3 PG (27.0-34.0); MEAN CORPUSCULAR HGB CONC 33.3 % (32.0-36.0); MEAN PLATELET VOLUME 8.9 FL (7.0-11.0); MONO % 6.7 % (0.0-8.0); MONOCYTE # 0.5 TH/MM3 (0-0.9); NEUT % 83.1 % (16.0-70.0); PLATELET COUNT 259 TH/MM3 (150-450); RED BLOOD COUNT 2.69 MIL/MM3 (4.00-5.30); WHITE BLOOD COUNT 7.3 TH/MM3 (4.0-11.0)
[2017-08-12 05:12] LABS: INTERNATIONAL NORMALIZED RATIO 1.8 RATIO; PROTHROMBIN TIME - PATIENT 18.5 SEC (9.8-11.6)
[2017-08-12 05:15] LABS: HEMOGLOBIN 6.8 GM/DL (11.6-15.3)
[2017-08-12 05:16] LABS: HEMATOCRIT 20.4 % (35.0-46.0)
[2017-08-12 05:23] LABS: RETIC # 56.1 MIL/L (20.0-150.0); RETIC % 2.1 % (0.4-3.0)
[2017-08-12 05:29] LABS: BICARBONATE 29.4 MEQ/L (21.0-32.0); CALCIUM 8.1 MG/DL (8.5-10.1); CREATININE 1.03 MG/DL (0.50-1.00)
[2017-08-12] MEDS ORDERED: SODIUM CHLOR 0.9% 250 ML INJ 250 ML IV ONE (05:30)
[2017-08-12] MEDS: INSULIN ASPART SUPPLEMENTAL SCALE SQ SCH ×4 (08:00→21:45)
[2017-08-12] MEDS: LISINOPRIL 5 MG TAB PO SCH (09:00)
--- NOTE | 2017-08-12 09:02 | HHI.PR ---
Subjective Remarks No overnight events Patient still complaining of right lower extremity pain, not better. Hemoglobin dropped to 6.8 from 7.6. Objective Vitals Vital Signs Date Time Temp Pulse Resp B/P (MAP) Pulse Ox O2 Delivery O2 Flow Rate FiO2 08/12/17 07:39 98.6 76 18 90/50 (63) 95 08/12/17 04:05 99.2 81 18 102/56 (71) 100 08/12/17 03:55 80 08/12/17 00:05 99.2 89 18 102/51 (68) 98 08/11/17 23:40 83 08/11/17 21:10 99.2 80 18 92/54 (67) 99 109/63 (78) 08/11/17 20:09 90 08/11/17 18:48 18 08/11/17 16:00 98.4 82 18 95/54 (68) 94 08/11/17 12:00 111 08/11/17 11:55 18 08/11/17 11:45 98.8 84 18 133/56 (81) 97 08/11/17 10:24 18 I/O 08/11/17 08/11/17 08/11/17 08/12/17 08/12/17 08/12/17 07:00 15:00 23:00 07:00 15:00 23:00 Intake Total 1360 ml 820 ml 480 ml Balance 1360 ml 820 ml 480 ml Intake Oral 1360 ml 720 ml 480 ml IV Total 100 ml # Voids 7 1 2 # Bowel Movements 3 1 0 Result Diagram: 08/12/1741908/12/17 042 Objective Remarks GENERAL: Morbidly obese female laying in bed in NAD. SKIN: Warm and dry. HEENT: Pupils equal and round. MMM. NECK: Supple no tender LAD or JVD. HEART: RRR no m/r/g. LUNGS: CTAB without wheezes or crackles. ABDOMEN: Soft, NT, ND. EXTREMITIES: B/L LE edematous and enlarged. Warmth, induration, and tenderness with minimal palpation over R calf and schwab. NEURO: Awake and alert. No focal deficits. A/P Assessment and Plan 56 YOAAF presented on 08/08 after having a witnessed syncopal episode. On admission she was found to have a supratherapeutic INR of 12.3. Syncope - Head CT negative, Carotid U/S with mild noncalcified plaque with borderline hemodynamic parameters suggesting possible 50-70% stenosis - Echo with low-normal EF of 50-55% and mild concentric LVH, ACS ruled out - Orthostatics borderline negative. - Etiology syncope possibly vasovagal vs dehydration as the patient states she hadn't eaten in four days prior to the episode - Encourage adequate hydration Anemia - Monitor closely, follow-up hematology workup, hold off anticoagulation, transfuse packed red blood cells today with hemoglobin of 6.8. Recheck CBC tomorrow Supratherapeutic INR - Resolved s/p vitamin K - INR 1.8 today, plan is to switch to Eliquis once anemia workup is finished. Pending Hemoccult. Chronic RLE DVT - Anticoagulated on Coumadin which hematology recommends continuing as it is impossible to tell if there is an acute DVT - D/W patient the chronicity of her clot burden and that she is going to continue having discomfort and swelling - Elevate leg, ? Cellulitis, continue anticoagulation per hematology, switch to Eliquis Cellulitis RLE - Pt initially started on broad spectrum with Vanc and Zosyn, de-escalated to Rocephin, patient now mildly hypotensive,? Beginning sepsis however no leukocytosis. Blood cultures negative. No active drainage. Hypotension could also be secondary to anemia. Switch back to Zosyn, monitor. Recheck CBC tomorrow. Diabetes mellitus - SSI per protocol HTN - BPs have been on the lower end, start normal saline - D/C Amlodipine and replace with low-dose Lisinopril mostly for renal protection in light of DM, monitor. LE edema -Hold Lasix and metolazone because of hypotension - Monitor electrolytes - Continue KCl BROWN - Renal function worsening, start normal saline, diuretics on hold - Avoid nephrotoxic agents, recheck BMP tomorrow. Hypokalemia-replace, recheck tomorrow. DVT prophylaxis: Was on not Coumadin, switche to Eliquis once hemoglobin is stable and workup done. Discharge Planning Possibly tomorrow pending clinical response to antibiotics and monitoring of H& H which is dropping Jacqueline Little MD Aug 12, 2017 09:02
[2017-08-12] MEDS: SULFAMETHOXAZOLE-TRIMETHOPRIM DS 800-160 MG TAB PO SCH (09:04)
[2017-08-12] MEDS: SODIUM CHLORIDE 0.9% FLUSH 10 ML FLUSH IV FLUSH SCH ×2 (09:04→20:22)
[2017-08-12] MEDS: FUROSEMIDE 20 MG TAB PO SCH (09:04)
[2017-08-12] MEDS: POTASSIUM CHLORIDE 10 MEQ CONTROLLED RELEASE TAB PO SCH (09:05)
[2017-08-12] MEDS: METOLAZONE 5 MG TAB PO SCH (09:06)
[2017-08-12] MEDS ORDERED: POTASSIUM CHLORIDE 25 MEQ EFFERVESCENT TAB PO ONE (09:15)
[2017-08-12] MEDS: SODIUM CHLOR 0.9% 1000 ML INJ 1,000 ML IV SCH ×2 (10:30→22:11)
[2017-08-12] MEDS ORDERED: PHARMACY ORDERED LAB ONE (10:45)
--- NOTE | 2017-08-12 11:32 | PD.ONC.PN ---
Subjective Subjective Remarks Afebrile overnight. Patient denies obvious bleeding. feels tired today. still having some pain in right calf. denies abdominal pain. Objective Data Date Time Temp Pulse Resp B/P (MAP) Pulse Ox O2 Delivery O2 Flow Rate FiO2 08/12/17 08:00 81 08/12/17 07:39 98.6 76 18 90/50 (63) 95 08/12/17 04:05 99.2 81 18 102/56 (71) 100 08/12/17 03:55 80 08/12/17 00:05 99.2 89 18 102/51 (68) 98 08/11/17 23:40 83 08/11/17 21:10 99.2 80 18 92/54 (67) 99 109/63 (78) 08/11/17 20:09 90 08/11/17 18:48 18 08/11/17 16:00 98.4 82 18 95/54 (68) 94 08/11/17 12:00 111 08/11/17 11:55 18 08/11/17 11:45 98.8 84 18 133/56 (81) 97 08/12/17 08/12/17 08/12/17 07:00 15:00 23:00 Intake Total 480 ml Balance 480 ml Result Diagram: 08/12/17 0420 08/12/17 0420 Laboratory Results Laboratory Tests Test 08/11/17 17:28 08/12/17 04:20 Iron Level 71 MCG/DL Total Iron Binding Capacity 161 MCG/DL Percent Iron Saturation 44.1 % Ferritin 833 NG/ML Lactate Dehydrogenase 533 U/L Vitamin B12 Level 998 PG/ML Folate 6.3 NG/ML White Blood Count 7.3 TH/MM3 Red Blood Count 2.69 MIL/MM3 Hemoglobin 6.8 GM/DL Hematocrit 20.4 % Mean Corpuscular Volume 75.9 FL Mean Corpuscular Hemoglobin 25.3 PG Mean Corpuscular Hemoglobin Concent 33.3 % Red Cell Distribution Width 15.0 % Platelet Count 259 TH/MM3 Mean Platelet Volume 8.9 FL Neutrophils (%) (Auto) 83.1 % Lymphocytes (%) (Auto) 8.4 % Monocytes (%) (Auto) 6.7 % Eosinophils (%) (Auto) 1.4 % Basophils (%) (Auto) 0.4 % Neutrophils # (Auto) 6.1 TH/MM3 Lymphocytes # (Auto) 0.6 TH/MM3 Monocytes # (Auto) 0.5 TH/MM3 Eosinophils # (Auto) 0.1 TH/MM3 Basophils # (Auto) 0.0 TH/MM3 CBC Comment DIFF FINAL Differential Comment Reticulocyte Count 2.1 % Absolute Reticulocyte Count 56.1 MIL/L Haptoglobin 275 MG/DL Prothrombin Time 18.5 SEC Prothromb Time International Ratio 1.8 RATIO Blood Urea Nitrogen 21 MG/DL Creatinine 1.03 MG/DL Random Glucose 111 MG/DL Calcium Level 8.1 MG/DL Sodium Level 137 MEQ/L Potassium Level 3.3 MEQ/L Chloride Level 99 MEQ/L Carbon Dioxide Level 29.4 MEQ/L Anion Gap 9 MEQ/L Estimat Glomerular Filtration Rate 67 ML/MIN Administered Medications Medications (Trade) Dose Ordered Sig/Deng Route PRN Reason Start Time Stop Time Status Last Admin Dose Admin Sodium Chloride (NS Flush) 2 ml UNSCH PRN IV FLUSH FLUSH AFTER USING IV ACCESS 08/07/17 22:00 08/09/17 18:04 Sodium Chloride (NS Flush) 2 ml BID IV FLUSH 08/08/17 09:00 08/12/17 09:04 Furosemide (Lasix) 20 mg BID PO 08/08/17 09:00 08/12/17 09:04 Metolazone (Zaroxolyn) 5 mg DAILY PO 08/08/17 09:00 08/12/17 09:06 Potassium Chloride (KCl) 30 meq DAILY PO 08/08/17 09:00 08/12/17 09:05 Morphine Sulfate (Morphine Inj) 2 mg Q3H PRN IV PUSH breakthrough pain 08/07/17 22:45 08/10/17 13:04 Warfarin Sodium (Coumadin) 5 mg DAILY@1600 PO 08/09/17 16:00 Future Hold 08/10/17 14:37 Insulin Aspart (NovoLOG SUPPLEMENTAL SCALE) 1 ACHS SLIDING SCALE SQ 08/10/17 17:00 08/10/17 20:16 Trimethoprim/ Sulfamethoxazole (Bactrim Ds 800-160 Mg) 1 tab Q12HR PO 08/11/17 11:00 08/12/17 09:04 Ketorolac Tromethamine (Toradol Inj) 30 mg Q6H PRN IV PUSH PAIN 5-10 08/11/17 17:00 08/16/17 16:59 08/12/17 06:03 Sodium Chloride 1,000 ml @ 84 mls/hr [id number] IV 08/12/17 09:15 08/12/17 10:30 Objective Remarks GENERAL: Pleasant obese female, supine in bed, in nad. SKIN: Warm and dry. HEAD: Normocephalic. EYES: No scleral icterus. No injection or drainage. NECK: Supple, trachea midline. CARDIOVASCULAR: +S1/S2 RESPIRATORY: anterior chopra clear. GASTROINTESTINAL: Abdomen soft, non-tender, nondistended. EXTREMITIES: No cyanosis. improving erythema, right calf. NEUROLOGICAL: aox3. normal speech. Assessment/Plan Problem List: (1) DVT (deep venous thrombosis) ICD Codes: I82.409 - Acute embolism and thrombosis of unspecified deep veins of unspecified lower extremity Status: Chronic Plan: --will resume anticoagulation once H/H stable. Hx/Workup: Patient has a history of recurrent lower extremity DVTs dating back to 2006. She has had an IVC filter since the summer 2016. It is possible that she has chronic DVTs and currently there is no evidence that she has necessarily failed warfarin. --The patient is positive for DVT on the right extending from the inguinal region to the proximal calf --Left leg negative for DVT --VQ scan shows no evidence for pulmonary embolus (2) Microcytic anemia ICD Codes: D50.9 - Iron deficiency anemia, unspecified Plan: --stool hemocult pending. --B12/folate WNL --iron studies more consistent with anemia of chronic disease Assessment 56-year-old female with history of lower extremity DVTs admitted with swelling and pain to the right leg that appears to be cellulitis Plan 1. agree with pRBC transfusion 2. await stool hemoccult. 3. monitor H/H 4. hold anticoagulation until H/H stable. Problem Qualifiers (1) DVT (deep venous thrombosis): Qualified Codes: I82.4Y1 - Acute embolism and thrombosis of unspecified deep veins of right proximal lower extremity Maribel Motley Aug 12, 2017 11:32
[2017-08-12] MEDS ORDERED: ACETAMINOPHEN 325 MG TAB PO PRN (13:15)
[2017-08-12] MEDS ORDERED: ACETAMINOPHEN/HYDROcodone 325 MG/5 MG TAB PO PRN (13:15)
[2017-08-12] MEDS ORDERED: NALOXONE HCL 0.4 MG/ML AMP IV PUSH PRN (13:15)
[2017-08-12] MEDS: ACETAMINOPHEN/HYDROcodone 325 MG/7.5 MG TAB PO PRN ×3 (13:24→22:08)
[2017-08-12] MEDS: PIPERACIL-TAZO 3.375 GM PREMIX 50 ML IV SCH ×2 (15:00→20:22)
[2017-08-12 22:08] LABS: HEMATOCRIT 25.4 % (35.0-46.0); HEMOGLOBIN 8.7 GM/DL (11.6-15.3)
[2017-08-13] VITALS (8 sets, daily range): BP systolic 90–123; BP diastolic 53–87; PULSE 71–92; RESP 16–18; TEMP 97.9–98.9; O2SAT 95–97
[2017-08-13 01:13] LABS: BICARBONATE 29.8 MEQ/L (21.0-32.0); CALCIUM 8.2 MG/DL (8.5-10.1); CREATININE 1.22 MG/DL (0.50-1.00)
[2017-08-13 01:52] LABS: AUTOMATED NEUTROPHIL # 8.3 TH/MM3 (1.8-7.7); BASOPHIL # 0.1 TH/MM3 (0-0.2); BASOPHIL % 0.8 % (0.0-2.0); EOSINOPHIL # 0.1 TH/MM3 (0-0.4); HEMATOCRIT 25.6 % (35.0-46.0); HEMOGLOBIN 8.8 GM/DL (11.6-15.3); LYMPH % 6.3 % (9.0-44.0); LYMPHOCYTE # 0.6 TH/MM3 (1.0-4.8); MEAN CELL VOLUME 78.4 FL (80.0-100.0); MEAN CORPUSCULAR HEMOGLOBIN 26.9 PG (27.0-34.0); MEAN CORPUSCULAR HGB CONC 34.3 % (32.0-36.0); MEAN PLATELET VOLUME 8.9 FL (7.0-11.0); MONO % 5.7 % (0.0-8.0); MONOCYTE # 0.6 TH/MM3 (0-0.9); NEUT % 86.2 % (16.0-70.0); PLATELET COUNT 267 TH/MM3 (150-450); RED BLOOD COUNT 3.26 MIL/MM3 (4.00-5.30); RED CELL DISTRIBUTION WIDTH 16.4 % (11.6-17.2); WHITE BLOOD COUNT 9.6 TH/MM3 (4.0-11.0)
[2017-08-13] MEDS: ACETAMINOPHEN/HYDROcodone 325 MG/7.5 MG TAB PO PRN ×5 (01:58→23:10)
[2017-08-13] MEDS: PIPERACIL-TAZO 3.375 GM PREMIX 50 ML IV SCH ×4 (01:59→21:48)
[2017-08-13] MEDS: INSULIN ASPART SUPPLEMENTAL SCALE SQ SCH ×4 (08:00→21:00)
[2017-08-13] MEDS: POTASSIUM CHLORIDE 10 MEQ CONTROLLED RELEASE TAB PO SCH (08:56)
[2017-08-13] MEDS: LISINOPRIL 5 MG TAB PO SCH (08:57)
[2017-08-13] MEDS: SODIUM CHLORIDE 0.9% FLUSH 10 ML FLUSH IV FLUSH SCH ×2 (08:57→21:00)
[2017-08-13] MEDS: SODIUM CHLOR 0.9% 1000 ML INJ 1,000 ML IV SCH ×2 (09:02→21:00)
[2017-08-13 09:53] LABS: DRVVT 1:1 MIX ND (CORRECTED); DRVVT CONFIRM NEGATIVE (NEGATIVE); HEXAGONAL PHASE CONFIRM WEAKLY POSITIVE (NEGATIVE)
[2017-08-13] MEDS: ONDANSETRON HCL 4 MG/2 ML VIAL IV PUSH PRN (12:21)
[2017-08-13 13:51] LABS: CARDIOLIPIN AB IGA LESS THAN 11.0 APL (0-11)
--- NOTE | 2017-08-13 15:28 | HHI.PR ---
Subjective Remarks Patient is in bed she complains of pain in her right leg. No shortness of breath or chills chest pain, no tachycardia. She is saturating well on room air. No fever or chills no nausea or vomiting no diarrhea or constipation. The patient is with multiple questions all answered to the best of my ability. Objective Vitals Vital Signs Date Time Temp Pulse Resp B/P (MAP) Pulse Ox O2 Delivery O2 Flow Rate FiO2 08/13/17 12:00 97.9 73 17 113/54 (73) 97 08/13/17 07:40 98.1 71 18 90/53 (65) 97 08/13/17 04:00 71 08/13/17 04:00 71 08/13/17 00:40 81 08/12/17 23:30 99.0 83 17 99/60 (73) 97 08/12/17 20:13 95 08/12/17 19:00 99.2 94 16 109/59 (76) 96 08/12/17 16:22 99.1 85 18 88/49 94 08/12/17 16:00 99.0 87 18 92/54 (67) 95 I/O 08/12/17 08/12/17 08/12/17 08/13/17 08/13/17 08/13/17 07:00 15:00 23:00 07:00 15:00 23:00 Intake Total 480 ml 445 ml 2418 ml 480 ml Output Total 500 ml Balance 480 ml 445 ml 2418 ml -20 ml Intake Oral 480 ml 960 ml 480 ml IV Total 1028 ml Packed Cells 400 ml 400 ml Blood Product IV Normal Saline Flush 45 ml 30 ml Output Urine Total 500 ml # Voids 2 2 # Bowel Movements 0 0 0 Result Diagram: 08/12/17214608/12/172146 Imaging Last Impressions Lower Extremity Ultrasound 08/09/17 0000 Signed Impressions: Service Date/Time: Wednesday, August 09, 2017 09:18 - CONCLUSION: Extensive subcutaneous edema identified within the calf which limits visualization of the posterior tibial vein. No DVT is identified. Angelita Schafer MD Carotid Artery Ultrasound 08/08/17 0000 Signed Impressions: Service Date/Time: Tuesday, August 08, 2017 11:16 - CONCLUSION: Mild noncalcified plaque seen real-time images. However, hemodynamic parameters are borderline elevated suggesting possible 50-70%% stenoses. Otto Zhang MD Chest X-Ray 08/07/17 1650 Signed Impressions: Service Date/Time: August 16:59 - CONCLUSION: 1. Cardiomegaly. Matt Falk MD Lung Scan-V[facility] Nuclear Medicine 08/07/17 0000 Signed Impressions: Service Date/Time: August 19:16 - CONCLUSION: 1. No evidence for pulmonary embolus. Chaz Arguelles MD Head CT 08/07/17 0000 Signed Impressions: Service Date/Time: August 17:59 - CONCLUSION: 1. No acute findings in the brain. Otto Zhang MD Objective Remarks GENERAL: Morbidly obese female laying in bed in NAD. SKIN: Warm and dry. HEENT: Pupils equal and round. MMM. NECK: Supple no tender LAD or JVD. HEART: RRR no m/r/g. LUNGS: CTAB without wheezes or crackles. ABDOMEN: Soft, NT, ND. EXTREMITIES: B/L LE edematous and enlarged. Warmth, induration, and tenderness with minimal palpation over R calf and schwab. NEURO: Awake and alert. No focal deficits. A/P Assessment and Plan 56 YOAAF presented on 08/08 after having a witnessed syncopal episode. On admission she was found to have a supratherapeutic INR of 12.3. Syncope Head CT negative, Carotid U/S with mild noncalcified plaque with borderline hemodynamic parameters suggesting possible 50-70% stenosis - Echo with low-normal EF of 50-55% and mild concentric LVH, ACS ruled out - Orthostatics borderline negative. - Etiology syncope possibly vasovagal vs dehydration as the patient states she hadn't eaten in four days prior to the episode - Encourage adequate hydration Anemia - Monitor closely, follow-up hematology workup, hold off anticoagulation, transfuse packed red blood cells today with hemoglobin of 6.8. Recheck CBC tomorrow Supratherapeutic INR - Resolved s/p vitamin K - INR 1.8 today, plan is to switch to Eliquis once anemia workup is finished. Pending Hemoccult. Chronic RLE DVT - Anticoagulated on Coumadin which hematology recommends continuing as it is impossible to tell if there is an acute DVT - D/W patient the chronicity of her clot burden and that she is going to continue having discomfort and swelling - Elevate leg, ? Cellulitis, continue anticoagulation per hematology, switch to Eliquis Cellulitis RLE - Pt initially started on broad spectrum with Vanc and Zosyn, de-escalated to Rocephin, patient now mildly hypotensive,? Beginning sepsis however no leukocytosis. Blood cultures negative. No active drainage. Hypotension could also be secondary to anemia. Switch back to Zosyn, monitor. Recheck CBC tomorrow. Diabetes mellitus 2 - SSI per protocol HTN - BPs have been on the lower end, start normal saline - D/C Amlodipine and replace with low-dose Lisinopril mostly for renal protection in light of DM, monitor. LE edema -Hold Lasix and metolazone because of hypotension - Monitor electrolytes - Continue KCl BROWN - Renal function worsening, start normal saline, diuretics on hold - Avoid nephrotoxic agents, recheck BMP tomorrow. Hypokalemia-replace, recheck tomorrow. DVT prophylaxis: Was on not Coumadin, switche to Eliquis once hemoglobin is stable and workup done. Discharge Planning DC when improved and cleared by hem/onc Hortensia King MD Aug 13, 2017 15:28
--- NOTE | 2017-08-13 16:42 | PD.CONS ---
HPI History of Present Illness This is a 56 year old with PMH significant for GERD, HTN, adjustment reaction, borderline mental retardation, anxiety and diabetes. Pt reports recent diagnosis of DVT for which she was placed on Coumadin, she came to [place] for an outpatient US when she had a witnessed syncopal episode on August 08. Pt is a poor historian so a lot of the information was obtained through chart review. Our service has been consulted to evaluate pt for anemia. On admission pt had an INR of 12.3, S/P Vit K is currently 1.8. Pt denies history of GIB. She reports of EGD and colonoscopy approx 3 years ago in this facility, however I can not find any records showing this. She states both exams were normal. She reports a nonspecific abdominal pain, unable to localize or describe it. Reports nausea for the past couple days, emesis that began today. Denies hematemesis and coffee ground emesis. Does state poor appetite for approximately a week. Denies any obvious blood in her stool, has not had a BM for three days. (Linette Tavarez) PFSH Past Medical History borderline mental retardation, adjustment reaction, anxiety, diabetes, GERD, hypertension and history of previously diagnosed DVT Past Surgical History Tubal ligation (Linette Tavarez) Coded Allergies: diatrizoate meglumine (Unverified Allergy, Severe, 08/07/17) gadobenic acid (Unverified Allergy, Severe, 08/07/17) gadodiamide (Unverified Allergy, Severe, 08/07/17) gadoteridol (Unverified Allergy, Severe, 08/07/17) iodixanol (Unverified Allergy, Severe, 08/07/17) iohexol (Unverified Allergy, Severe, 08/07/17) Uncoded Allergies: MRI DYE (Allergy, Severe, UNKNOWN, 01/13/07) Family History Unable to obtain secondary to patient's clinical condition Social History Negative for alcohol, tobacco and illicit drugs (Linette Tavarez) Review of Systems Gastrointestinal: COMPLAINS OF: Abdominal pain, Nausea, Vomiting, DENIES: Black stools, Bloody stools, Constipation, Diarrhea, Difficulty Swallowing, Odynophagia, Swelling of Abdomen, Heartburn, Hematemesis (Linette Tavarez) GI Exam Vitals I&O Vital Signs Date Time Temp Pulse Resp B/P (MAP) Pulse Ox O2 Delivery O2 Flow Rate FiO2 08/13/17 12:00 97.9 73 17 113/54 (73) 97 08/13/17 07:40 98.1 71 18 90/53 (65) 97 08/13/17 04:00 71 08/13/17 04:00 71 08/13/17 00:40 81 08/12/17 23:30 99.0 83 17 99/60 (73) 97 08/12/17 20:13 95 08/12/17 19:00 99.2 94 16 109/59 (76) 96 I/O 08/12/17 08/12/17 08/12/17 08/13/17 08/13/17 08/13/17 07:00 15:00 23:00 07:00 15:00 23:00 Intake Total 480 ml 445 ml 2418 ml 480 ml 734 ml Output Total 500 ml Balance 480 ml 445 ml 2418 ml -20 ml 734 ml Intake Oral 480 ml 960 ml 480 ml IV Total 1028 ml 734 ml Packed Cells 400 ml 400 ml Blood Product IV Normal Saline Flush 45 ml 30 ml Output Urine Total 500 ml # Voids 2 2 # Bowel Movements 0 0 0 Imaging Last Impressions Lower Extremity Ultrasound 08/09/17 0000 Signed Impressions: Service Date/Time: Wednesday, August 09, 2017 09:18 - CONCLUSION: Extensive subcutaneous edema identified within the calf which limits visualization of the posterior tibial vein. No DVT is identified. Angelita Schafer MD Carotid Artery Ultrasound 08/08/17 0000 Signed Impressions: Service Date/Time: Tuesday, August 08, 2017 11:16 - CONCLUSION: Mild noncalcified plaque seen real-time images. However, hemodynamic parameters are borderline elevated suggesting possible 50-70%% stenoses. Otto Zhang MD Chest X-Ray 08/07/17 1650 Signed Impressions: Service Date/Time: August 16:59 - CONCLUSION: 1. Cardiomegaly. Matt Falk MD Lung Scan- Nuclear Medicine 08/07/17 0000 Signed Impressions: Service Date/Time: August 19:16 - CONCLUSION: 1. No evidence for pulmonary embolus. Chaz Arguelles MD Head CT 4/5/18 0000 Signed Impressions: Service Date/Time: August 17:59 - CONCLUSION: 1. No acute findings in the brain. Otto Zhang MD Laboratory Test 08/12/17 21:47 White Blood Count 9.6 TH/MM3 Red Blood Count 3.26 MIL/MM3 Hemoglobin 8.8 GM/DL Hematocrit 25.6 % Mean Corpuscular Volume 78.4 FL Mean Corpuscular Hemoglobin 26.9 PG Mean Corpuscular Hemoglobin Concent 34.3 % Red Cell Distribution Width 16.4 % Platelet Count 267 TH/MM3 Mean Platelet Volume 8.9 FL Neutrophils (%) (Auto) 86.2 % Lymphocytes (%) (Auto) 6.3 % Monocytes (%) (Auto) 5.7 % Eosinophils (%) (Auto) 1.0 % Basophils (%) (Auto) 0.8 % Neutrophils # (Auto) 8.3 TH/MM3 Lymphocytes # (Auto) 0.6 TH/MM3 Monocytes # (Auto) 0.6 TH/MM3 Eosinophils # (Auto) 0.1 TH/MM3 Basophils # (Auto) 0.1 TH/MM3 CBC Comment DIFF FINAL Differential Comment Blood Urea Nitrogen 23 MG/DL Creatinine 1.22 MG/DL Random Glucose 127 MG/DL Calcium Level 8.2 MG/DL Sodium Level 138 MEQ/L Potassium Level 3.5 MEQ/L Chloride Level 99 MEQ/L Carbon Dioxide Level 29.8 MEQ/L Anion Gap 9 MEQ/L Estimat Glomerular Filtration Rate 55 ML/MIN Date/Time Source Procedure Growth Status 08/09/17 10:36 Blood Peripheral Aerobic Blood Culture - Preliminary NO GROWTH IN 4 DAYS Resulted 08/09/17 10:36 Blood Peripheral Anaerobic Blood Culture - Preliminary NO GROWTH IN 4 DAYS Resulted Physical Examination HEENT: Normocephalic; atraumatic CHEST: Even/unlabored CARDIAC: RRR ABDOMEN: Round, soft, nontender, bowel sounds active MANAGER OF SECURITY: Alert and oriented x 3 (Linette Tavarez) Assessment and Plan Plan Assessment: - Anemia- microcytic, hypochromic- significant drop in H/H from 4/5 Went from 9.5/28.6 to 6.8/20.4 on 08/12. Pt denies history of GIB. Denies any obvious GIB at this time. No BM in three days, denies blood in stool prior to that. (+) nausea for a few days and one episode of emesis today, denies hematemesis and coffee ground emesis. Poor appetite for approx a week. States abdominal pain but unable to localize or describe. Reports previous EGD and colonoscopy 3 years ago, states was done at this facility but not seen in records, says both exams were normal. Seen by hematology: Ferritin-833 Iron-71 TIBC-161 %sat-44.1 erythropoietin pending. Haptoglobin-275 - DVT- on Coumadin- INR 12.3 on admission, S/P Vit K currently 1.8 Planning on starting Eliquis after GI work up and H/H is stable - RLE cellulitis- abx per attending Plan: EGD/colonoscopy tomorrow Obtain consent Clear liquids today Mag Citrate prep x 3 NPO after MN Monitor H/H Hold anticoagulation Protonix Further recommendations based on findings of above Pt has been seen and examined by myself and Dr. Oconnell and this note is written on his behalf (Linette Tavarez) Plan Patient was seen and examined, agree with above-noted, we will recheck INR tomorrow morning, and see if the patient will tolerate prep, further plan depends on the finding on the endoscopy and colonoscopy (Gayla Oconnell MD) Linette Tavarez Aug 13, 2017 16:42 Gayla Oconnell MD Aug 13, 2017 20:04
[2017-08-13] MEDS ORDERED: MAGNESIUM CITRATE SOLN 300 ML BTL PO ONE ×3 (17:00→19:00)
[2017-08-13 17:20] LABS: AUTOMATED NEUTROPHIL # 7.5 TH/MM3 (1.8-7.7); BASOPHIL % 0.5 % (0.0-2.0); EOSINOPHIL # 0.1 TH/MM3 (0-0.4); EOSINOPHIL % 1.1 % (0.0-4.0); HEMATOCRIT 28.5 % (35.0-46.0); HEMOGLOBIN 9.7 GM/DL (11.6-15.3); LYMPH % 5.7 % (9.0-44.0); LYMPHOCYTE # 0.5 TH/MM3 (1.0-4.8); MEAN CELL VOLUME 78.6 FL (80.0-100.0); MEAN CORPUSCULAR HEMOGLOBIN 26.7 PG (27.0-34.0); MEAN CORPUSCULAR HGB CONC 33.9 % (32.0-36.0); MEAN PLATELET VOLUME 8.8 FL (7.0-11.0); MONO % 5.4 % (0.0-8.0); MONOCYTE # 0.5 TH/MM3 (0-0.9); NEUT % 87.3 % (16.0-70.0); PLATELET COUNT 331 TH/MM3 (150-450); RED BLOOD COUNT 3.63 MIL/MM3 (4.00-5.30); RED CELL DISTRIBUTION WIDTH 16.7 % (11.6-17.2); WHITE BLOOD COUNT 8.6 TH/MM3 (4.0-11.0)
[2017-08-13 17:28] LABS: INTERNATIONAL NORMALIZED RATIO 1.7 RATIO; PROTHROMBIN TIME - PATIENT 17.5 SEC (9.8-11.6)
[2017-08-13] MEDS: PANTOPRAZOLE SODIUM 40 MG VIAL IV PUSH SCH (17:35)
[2017-08-13 17:41] LABS: BICARBONATE 28.2 MEQ/L (21.0-32.0); CALCIUM 8.9 MG/DL (8.5-10.1); CREATININE 1.08 MG/DL (0.50-1.00)
[2017-08-13] MEDS ORDERED: METOPROLOL TARTRATE 25 MG TAB PO PRN (22:00)
[2017-08-13] MEDS ORDERED: SODIUM CHLORID 0.9% 500 ML IV PRN (22:00)
[2017-08-13] MEDS ORDERED: LACTATED RINGER'S 1000 ML IV PRN (22:00)
[2017-08-13] MEDS ORDERED: CHLORHEXIDINE GLUCONATE 2 % 1 PACK (2 CLOTHS) TOPICAL PRN (22:00)
[2017-08-14] VITALS: BP 131/82; PULSE 80; RESP 20; TEMP 98.7; O2SAT 96
[2017-08-14] MEDS: PIPERACIL-TAZO 3.375 GM PREMIX 50 ML IV SCH ×4 (02:53→21:08)
[2017-08-14 03:50] LABS: BETA2 GLYCOPROTEIN I AB IGG LESS THAN 9.0 SGU (< OR = 20); BETA2 GLYCOPROTEIN I AB IGM LESS THAN 9.0 SMU (< OR = 20)
[2017-08-14] MEDS: ACETAMINOPHEN/HYDROcodone 325 MG/7.5 MG TAB PO PRN ×3 (04:15→21:19)
[2017-08-14 05:26] LABS: BASOPHIL % 0.5 % (0.0-2.0); EOSINOPHIL # 0.1 TH/MM3 (0-0.4); EOSINOPHIL % 1.8 % (0.0-4.0); HEMATOCRIT 27.1 % (35.0-46.0); HEMOGLOBIN 8.9 GM/DL (11.6-15.3); LYMPH % 7.3 % (9.0-44.0); LYMPHOCYTE # 0.4 TH/MM3 (1.0-4.8); MEAN CELL VOLUME 79.2 FL (80.0-100.0); MEAN CORPUSCULAR HEMOGLOBIN 26.1 PG (27.0-34.0); MEAN CORPUSCULAR HGB CONC 32.9 % (32.0-36.0); MEAN PLATELET VOLUME 8.6 FL (7.0-11.0); MONO % 7.9 % (0.0-8.0); MONOCYTE # 0.5 TH/MM3 (0-0.9); NEUT % 82.5 % (16.0-70.0); PLATELET COUNT 321 TH/MM3 (150-450); RED BLOOD COUNT 3.42 MIL/MM3 (4.00-5.30); RED CELL DISTRIBUTION WIDTH 16.8 % (11.6-17.2); WHITE BLOOD COUNT 6.1 TH/MM3 (4.0-11.0)
[2017-08-14 05:29] LABS: INTERNATIONAL NORMALIZED RATIO 1.7 RATIO; PROTHROMBIN TIME - PATIENT 17.2 SEC (9.8-11.6)
[2017-08-14 05:46] LABS: ALBUMIN 2.2 GM/DL (3.4-5.0); DIRECT BILIRUBIN ADULT 0.2 MG/DL (0.0-0.2)
[2017-08-14 05:48] LABS: INDIRECT BILIRUBIN 0.6 MG/DL (0.0-0.8); TOTAL BILIRUBIN ADULT 0.8 MG/DL (0.2-1.0); TOTAL PROTEIN 7.9 GM/DL (6.4-8.2)
[2017-08-14] MEDS: PANTOPRAZOLE SODIUM 40 MG VIAL IV PUSH SCH ×2 (06:07→18:00)
[2017-08-14 08:00] VITALS: BP 122/61; PULSE 71; RESP 17; TEMP 97.1; O2SAT 98
[2017-08-14] MEDS: INSULIN ASPART SUPPLEMENTAL SCALE SQ SCH ×4 (08:00→21:00)
--- NOTE | 2017-08-14 08:15 | HHI.PR ---
Subjective Remarks She is in bed. Says she has some pain in her left leg. No fever or chills overnight. Awaiting to go for EGD. No nausea or vomiting. He did have dark bowel movements. No blood in it. Objective Vitals Vital Signs Date Time Temp Pulse Resp B/P (MAP) Pulse Ox O2 Delivery O2 Flow Rate FiO2 08/14/17 00:00 98.7 80 20 131/82 (98) 96 08/13/17 19:59 98.1 88 16 120/87 (98) 97 08/13/17 17:50 79 18 123/55 (77) 08/13/17 17:00 71 08/13/17 16:00 98.9 92 17 93/58 (70) 95 08/13/17 12:00 97.9 73 17 113/54 (73) 97 I/O 08/13/17 08/13/17 08/13/17 08/14/17 08/14/17 08/14/17 07:00 15:00 23:00 07:00 15:00 23:00 Intake Total 480 ml 1264 ml Output Total 500 ml Balance -20 ml 1264 ml Intake Oral 480 ml 480 ml IV Total 784 ml Output Urine Total 500 ml # Voids 3 # Bowel Movements 0 0 Result Diagram: 08/14/17 0445 08/13/17 1624 Imaging Last Impressions Lower Extremity Ultrasound 08/09/17 0000 Signed Impressions: Service Date/Time: Wednesday, August 09, 2017 09:18 - CONCLUSION: Extensive subcutaneous edema identified within the calf which limits visualization of the posterior tibial vein. No DVT is identified. Angelita Schafer MD Carotid Artery Ultrasound 08/08/17 0000 Signed Impressions: Service Date/Time: Tuesday, August 08, 2017 11:16 - CONCLUSION: Mild noncalcified plaque seen real-time images. However, hemodynamic parameters are borderline elevated suggesting possible 50-70%% stenoses. Otto Zhang MD Chest X-Ray 08/07/17 1650 Signed Impressions: Service Date/Time: August 16:59 - CONCLUSION: 1. Cardiomegaly. Matt Falk MD Lung Scan- Nuclear Medicine 08/07/17 0000 Signed Impressions: Service Date/Time: August 19:16 - CONCLUSION: 1. No evidence for pulmonary embolus. Chaz Arguelles MD Head CT 08/07/17 0000 Signed Impressions: Service Date/Time: August 17:59 - CONCLUSION: 1. No acute findings in the brain. Otto Zhang MD Objective Remarks GENERAL: Morbidly obese female laying in bed in NAD. SKIN: Warm and dry. HEENT: Pupils equal and round. MMM. NECK: Supple no tender LAD or JVD. HEART: RRR no m/r/g. LUNGS: CTAB without wheezes or crackles. ABDOMEN: Soft, NT, ND. EXTREMITIES: B/L LE edematous and enlarged. Warmth, induration, and tenderness with minimal palpation over R calf and schwab. NEURO: Awake and alert. No focal deficits. A/P Assessment and Plan 56 YOAAF presented on 08/08 after having a witnessed syncopal episode. On admission she was found to have a supratherapeutic INR of 12.3. Syncope Head CT negative, Carotid U/S with mild noncalcified plaque with borderline hemodynamic parameters suggesting possible 50-70% stenosis - Echo with low-normal EF of 50-55% and mild concentric LVH, ACS ruled out - Orthostatics borderline negative. - Etiology syncope possibly vasovagal vs dehydration as the patient states she hadn't eaten in four days prior to the episode - Encourage adequate hydration Anemia - Monitor closely, follow-up hematology workup, hold off anticoagulation, transfuse packed red blood cells today with hemoglobin of 6.8. Recheck CBC tomorrow - consult GI to r/o GI source of bleeding -Plan for EGD Supratherapeutic INR - Resolved s/p vitamin K - INR 1.8 today, plan is to switch to Eliquis once anemia workup is finished. Pending Hemoccult. Chronic RLE DVT - Anticoagulated on Coumadin which hematology recommends continuing as it is impossible to tell if there is an acute DVT - D/W patient the chronicity of her clot burden and that she is going to continue having discomfort and swelling - Elevate leg, ? Cellulitis, continue anticoagulation per hematology, switch to Eliquis Cellulitis RLE - Pt initially started on broad spectrum with Vanc and Zosyn, de-escalated to Rocephin, patient now mildly hypotensive,? Beginning sepsis however no leukocytosis. Blood cultures negative. No active drainage. Hypotension could also be secondary to anemia. Switch back to Zosyn, monitor. Recheck CBC tomorrow. Diabetes mellitus 2 - SSI per protocol HTN - BPs have been on the lower end, start normal saline - D/C Amlodipine and replace with low-dose Lisinopril mostly for renal protection in light of DM, monitor. LE edema -Hold Lasix and metolazone because of hypotension - Monitor electrolytes - Continue KCl BROWN - Renal function worsening, start normal saline, diuretics on hold - Avoid nephrotoxic agents, recheck BMP tomorrow. Hypokalemia-replace, recheck tomorrow. DVT prophylaxis: Was on not Coumadin, switch to Eliquis once hemoglobin is stable and workup done. Discharge Planning DC when improved and cleared by hem/onc and GI Plan for EGD Hortensia King MD Aug 14, 2017 08:15
[2017-08-14] MEDS: POTASSIUM CHLORIDE 10 MEQ CONTROLLED RELEASE TAB PO SCH (09:00)
[2017-08-14] MEDS: LISINOPRIL 5 MG TAB PO SCH (09:00)
[2017-08-14] MEDS: SODIUM CHLORIDE 0.9% FLUSH 10 ML FLUSH IV FLUSH SCH ×2 (09:00→21:08)
[2017-08-14 12:00] VITALS: BP 116/65; PULSE 75; RESP 17; TEMP 98.1; O2SAT 95
[2017-08-14] MEDS ORDERED: LIDOCAINE HCL 1% PF 5 ML SYRINGE OTHER ONE (12:00)
[2017-08-14] MEDS ORDERED: PROPOFOL 200 MG/20 ML AMP IV ONE (12:00)
--- NOTE | 2017-08-14 15:33 | PD.PROCEDR ---
GI Procedure PROCEDURE PERFORMED Upper endoscopy with biopsy Colonoscopy INDICATION FOR PROCEDURE Anemia GI bleed PROCEDURE: The procedure, risks and benefits were discussed with Ms. Petersen and informed consent was obtained. Anesthesia sedated her with Diprivan. She was placed in the left lateral decubitus position. EGD: The Pentax videoscope was introduced through the oropharynx and advanced to the second portion of the duodenum under direct visualization. Retroflexion was performed in the stomach. Biopsy from the antrum Colonoscopy: The Pentax videoscope was introduced through the rectum and advanced to cecum. Retroflexion was performed in the rectum. Colonic prep was fair ESTIMATED BLOOD LOSS: None SPECIMENS REMOVED: Antrum from ulcer COMPLICATIONS: None IMPRESSION: Esophagus normal Stomach has multiple ulcers mostly in the antrum severe gastritis biopsy from the antrum to rule out H. pylori Duodenum normal Colonoscopy was normal with some stool throughout the colon PLAN: No NSAIDs Protonix 40 mg daily Follow-up biopsy If patient needs anticoagulation please make sure that the patient has the lowest possible therapeutic dose with close monitoring of hemoglobin and Okay to feed patient Okay to discharge from GI If hemoglobin stable Gayla Oconnell MD Aug 14, 2017 15:33
--- NOTE | 2017-08-14 15:35 | HHI.GIFU ---
Subjective Remarks Patient lying in bed comfortably, no significant GI bleed, hemoglobin stable, tolerated prep reasonably well Objective Vitals I&O Vital Signs Date Time Temp Pulse Resp B/P (MAP) Pulse Ox O2 Delivery O2 Flow Rate FiO2 08/14/17 14:38 98.4 75 16 128/70 (89) 96 08/14/17 12:00 98.1 75 17 116/65 (82) 95 08/14/17 08:00 97.1 71 17 122/61 (81) 98 08/14/17 00:00 98.7 80 20 131/82 (98) 96 08/13/17 19:59 98.1 88 16 120/87 (98) 97 08/13/17 17:50 79 18 123/55 (77) 08/13/17 17:00 71 08/13/17 16:00 98.9 92 17 93/58 (70) 95 I/O 08/13/17 08/13/17 08/13/17 08/14/17 08/14/17 08/14/17 07:00 15:00 23:00 07:00 15:00 23:00 Intake Total 480 ml 1264 ml 100 ml Output Total 500 ml Balance -20 ml 1264 ml 100 ml Intake Oral 480 ml 480 ml IV Total 784 ml Other 100 ml Output Urine Total 500 ml # Voids 3 # Bowel Movements 0 0 Laboratory Laboratory Tests Test 08/13/17 16:24 08/14/17 04:45 White Blood Count 8.6 6.1 Red Blood Count 3.63 3.42 Hemoglobin 9.7 8.9 Hematocrit 28.5 27.1 Mean Corpuscular Volume 78.6 79.2 Mean Corpuscular Hemoglobin 26.7 26.1 Mean Corpuscular Hemoglobin Concent 33.9 32.9 Red Cell Distribution Width 16.7 16.8 Platelet Count 331 321 Mean Platelet Volume 8.8 8.6 Neutrophils (%) (Auto) 87.3 82.5 Lymphocytes (%) (Auto) 5.7 7.3 Monocytes (%) (Auto) 5.4 7.9 Eosinophils (%) (Auto) 1.1 1.8 Basophils (%) (Auto) 0.5 0.5 Neutrophils # (Auto) 7.5 5.0 Lymphocytes # (Auto) 0.5 0.4 Monocytes # (Auto) 0.5 0.5 Eosinophils # (Auto) 0.1 0.1 Basophils # (Auto) 0.0 0.0 CBC Comment DIFF FINAL DIFF FINAL Differential Comment Prothrombin Time 17.5 17.2 Prothromb Time International Ratio 1.7 1.7 Blood Urea Nitrogen 20 Creatinine 1.08 Random Glucose 114 Calcium Level 8.9 Sodium Level 137 Potassium Level 4.1 Chloride Level 101 Carbon Dioxide Level 28.2 Anion Gap 8 Estimat Glomerular Filtration Rate 64 Activated Partial Thromboplast Time 31.7 Total Bilirubin 0.8 Direct Bilirubin 0.2 Indirect Bilirubin 0.6 Aspartate Amino Transf (AST/SGOT) 43 Alanine Aminotransferase (ALT/SGPT) 42 Alkaline Phosphatase 101 Total Protein 7.9 Albumin 2.2 Date/Time Source Procedure Growth Status 08/09/17 10:36 Blood Peripheral Aerobic Blood Culture - Final NO GROWTH IN 5 DAYS Complete 08/09/17 10:36 Blood Peripheral Anaerobic Blood Culture - Final NO GROWTH IN 5 DAYS Complete Physical Exam HEENT: Pupils round and reactive to light; normocephalic; atraumatic; no jaundice. Throat is clear. NECK: Neck is supple, no JVD, no lymphadenopathy. CHEST: Chest is clear to auscultation and percussion. CARDIAC: Regular rate and rhythm with no murmur gallop or rubs. ABDOMEN: Soft, nondistended, nontender; no hepatosplenomegaly; bowel sounds are present in all four quadrants. Morbid obesity EXTREMITIES: No clubbing, cyanosis, or edema. SKIN: Normal; no rash; no jaundice. GAME ENGINEER: No focal deficits; alert and oriented times three. Assessment and Plan Plan Patient was seen and examined, patient has anemia, heme-positive stool, possible GI bleed, had an upper endoscopy and colonoscopy today IMPRESSION: Esophagus normal Stomach has multiple ulcers mostly in the antrum severe gastritis biopsy from the antrum to rule out H. pylori Duodenum normal Colonoscopy was normal with some stool throughout the colon PLAN: No NSAIDs Protonix 40 mg daily Follow-up biopsy If patient needs anticoagulation please make sure that the patient has the lowest possible therapeutic dose with close monitoring of hemoglobin and Okay to feed patient Okay to discharge from GI If hemoglobin stable Gayla Oconnell MD Aug 14, 2017 15:35
[2017-08-14 16:00] VITALS: BP 148/72; PULSE 75; RESP 17; TEMP 97.7; O2SAT 96
[2017-08-14 17:54] LABS: PHOS SERINE AB IGA LESS THAN 20 U/mL (<20)
[2017-08-14 19:54] LABS: BETA2 GLYCOPROTEIN I AB IGA LESS THAN 9.0 SAU (< OR = 20)
[2017-08-14 20:28] VITALS: BP 132/71; PULSE 92; RESP 18; TEMP 98.6; O2SAT 97
[2017-08-14] MEDS: SODIUM CHLOR 0.9% 1000 ML INJ 1,000 ML IV SCH (20:50)
[2017-08-14 23:10] VITALS: BP 117/62; PULSE 88; RESP 18; TEMP 98.3; O2SAT 96
[2017-08-15] MEDS: ONDANSETRON HCL 4 MG/2 ML VIAL IV PUSH PRN (00:11)
[2017-08-15] MEDS: ACETAMINOPHEN/HYDROcodone 325 MG/7.5 MG TAB PO PRN ×4 (01:24→20:14)
[2017-08-15 03:45] VITALS: BP 107/62; PULSE 77; RESP 18; TEMP 98.7; O2SAT 98
[2017-08-15] MEDS: PIPERACIL-TAZO 3.375 GM PREMIX 50 ML IV SCH ×2 (03:48→09:00)
[2017-08-15] MEDS: MORPHINE SULFATE 2 MG/ML SYRINGE IV PUSH PRN ×2 (03:48→23:05)
[2017-08-15] MEDS: PANTOPRAZOLE SODIUM 40 MG VIAL IV PUSH SCH ×2 (06:28→18:00)
[2017-08-15 07:27] LABS: INTERNATIONAL NORMALIZED RATIO 1.6 RATIO; PROTHROMBIN TIME - PATIENT 15.8 SEC (9.8-11.6)
[2017-08-15 07:41] LABS: AUTOMATED NEUTROPHIL # 4.1 TH/MM3 (1.8-7.7); BASOPHIL % 0.5 % (0.0-2.0); EOSINOPHIL # 0.1 TH/MM3 (0-0.4); HEMOGLOBIN 8.9 GM/DL (11.6-15.3); LYMPHOCYTE # 0.6 TH/MM3 (1.0-4.8); MEAN CELL VOLUME 78.8 FL (80.0-100.0); MEAN CORPUSCULAR HEMOGLOBIN 25.8 PG (27.0-34.0); MEAN CORPUSCULAR HGB CONC 32.7 % (32.0-36.0); MEAN PLATELET VOLUME 8.3 FL (7.0-11.0); MONO % 10.2 % (0.0-8.0); MONOCYTE # 0.6 TH/MM3 (0-0.9); NEUT % 76.3 % (16.0-70.0); PLATELET COUNT 336 TH/MM3 (150-450); RED BLOOD COUNT 3.43 MIL/MM3 (4.00-5.30); RED CELL DISTRIBUTION WIDTH 17.1 % (11.6-17.2); WHITE BLOOD COUNT 5.4 TH/MM3 (4.0-11.0)
[2017-08-15 08:00] VITALS: BP 109/55; PULSE 71; RESP 16; TEMP 98.1; O2SAT 96
[2017-08-15] MEDS: INSULIN ASPART SUPPLEMENTAL SCALE SQ SCH ×4 (08:00→20:04)
[2017-08-15] MEDS: LISINOPRIL 5 MG TAB PO SCH (08:21)
[2017-08-15] MEDS: POTASSIUM CHLORIDE 10 MEQ CONTROLLED RELEASE TAB PO SCH (08:21)
[2017-08-15] MEDS: SODIUM CHLORIDE 0.9% FLUSH 10 ML FLUSH IV FLUSH SCH ×2 (08:25→20:04)
[2017-08-15] MEDS: SODIUM CHLOR 0.9% 1000 ML INJ 1,000 ML IV SCH ×2 (08:45→20:05)
--- NOTE | 2017-08-15 10:10 | HHI.PR ---
Subjective Remarks The patient is in bed says she still has pain in her leg. Did not have a bowel movement today. No abdominal pain at this time. Eating fairly well. No fever chills no nausea vomiting no diarrhea or constipation. Denies any palpitations or shortness of breath. Patient says she cannot walk and she does not want to go to any nursing home facility however says she cannot go home either because she cannot walk. Patient wants to stay in the hospital. Objective Vitals Vital Signs Date Time Temp Pulse Resp B/P (MAP) Pulse Ox O2 Delivery O2 Flow Rate FiO2 08/15/17 08:00 98.1 71 16 109/55 (73) 96 08/15/17 03:45 98.7 77 18 107/62 (77) 98 08/14/17 23:10 98.3 88 18 117/62 (80) 96 08/14/17 20:28 98.6 92 18 132/71 (91) 97 08/14/17 16:00 97.7 75 17 148/72 (97) 96 08/14/17 14:38 98.4 75 16 128/70 (89) 96 08/14/17 12:00 98.1 75 17 116/65 (82) 95 I/O 08/14/17 08/14/17 08/14/17 08/15/17 08/15/17 08/15/17 07:00 15:00 23:00 07:00 15:00 23:00 Intake Total 100 ml 320 ml 480 ml Balance 100 ml 320 ml 480 ml Intake Oral 320 ml 480 ml Other 100 ml # Voids 5 4 # Bowel Movements 0 0 Result Diagram: 08/15/17 0634 08/13/17 1624 Imaging Last Impressions Lower Extremity Ultrasound 08/09/17 0000 Signed Impressions: Service Date/Time: Wednesday, August 09, 2017 09:18 - CONCLUSION: Extensive subcutaneous edema identified within the calf which limits visualization of the posterior tibial vein. No DVT is identified. Angelita Schafer MD Carotid Artery Ultrasound 08/08/17 0000 Signed Impressions: Service Date/Time: Tuesday, August 08, 2017 11:16 - CONCLUSION: Mild noncalcified plaque seen real-time images. However, hemodynamic parameters are borderline elevated suggesting possible 50-70%% stenoses. Otto Zhang MD Chest X-Ray 08/07/17 1650 Signed Impressions: Service Date/Time: August 16:59 - CONCLUSION: 1. Cardiomegaly. Matt Falk MD Lung Scan-V Nuclear Medicine 08/07/17 0000 Signed Impressions: Service Date/Time: , August 07, 2017 19:16 - CONCLUSION: 1. No evidence for pulmonary embolus. Chaz Arguelles MD Head CT 08/07/17 0000 Signed Impressions: Service Date/Time: August 17:59 - CONCLUSION: 1. No acute findings in the brain. Otto Zhang MD Objective Remarks GENERAL: Morbidly obese female laying in bed in NAD. SKIN: Warm and dry. HEENT: Pupils equal and round. MMM. NECK: Supple no tender LAD or JVD. HEART: RRR no m/r/g. LUNGS: CTAB without wheezes or crackles. ABDOMEN: Soft, NT, ND. EXTREMITIES: B/L LE edematous and enlarged. Warmth, induration, and tenderness with minimal palpation over R calf and schwab. NEURO: Awake and alert. No focal deficits. A/P Assessment and Plan 56 yo AA female presented on 08/08 after having a witnessed syncopal episode. On admission she was found to have a supratherapeutic INR of 12.3. Patient with DVT left leg however also with anemia and stomach ulcers. On PPI,. anticoagulation per GI and hem/onc recs. Syncope Head CT negative, Carotid U/S with mild noncalcified plaque with borderline hemodynamic parameters suggesting possible 50-70% stenosis - Echo with low-normal EF of 50-55% and mild concentric LVH, ACS ruled out - Orthostatics borderline negative. - Etiology syncope possibly vasovagal vs dehydration as the patient states she hadn't eaten in four days prior to the episode - Encourage adequate hydration Anemia Antral stomach ulcers - Monitor closely, follow-up hematology workup, hold off anticoagulation, transfuse packed red blood cells today with hemoglobin of 6.8. Recheck CBC tomorrow - consult GI to r/o GI source of bleeding -Status post EGD and colonoscopy. Found with uncontrolled stomach ulcers continue pantoprazole 40 mg daily to follow-up with GI as outpatient biopsies are pending and follow-up as outpatient for results. Per GI patient might have the lowest dose of anticoagulation she is leaving due to stomach ulcers. Supratherapeutic INR - Resolved s/p vitamin K - INR 1.8 today, plan is to switch to Eliquis once anemia workup is finished. Pending Hemoccult. Chronic RLE DVT - Anticoagulated on Coumadin which hematology recommends continuing as it is impossible to tell if there is an acute DVT - D/W patient the chronicity of her clot burden and that she is going to continue having discomfort and swelling - Elevate leg, ? Cellulitis, continue anticoagulation per hematology, switch to Eliquis Cellulitis RLE - Pt initially started on broad spectrum with Vanc and Zosyn, de-escalated to Rocephin, patient now mildly hypotensive,? Beginning sepsis however no leukocytosis. Blood cultures negative. No active drainage. Hypotension could also be secondary to anemia. Switch back to Zosyn, monitor. Recheck CBC tomorrow. Diabetes mellitus 2 - SSI per protocol HTN - BPs have been on the lower end, start normal saline - D/C Amlodipine and replace with low-dose Lisinopril mostly for renal protection in light of DM, monitor. LE edema -Hold Lasix and metolazone because of hypotension - Monitor electrolytes - Continue KCl BROWN - Renal function worsening, start normal saline, diuretics on hold - Avoid nephrotoxic agents, recheck BMP tomorrow. Hypokalemia-replace, recheck tomorrow. DVT prophylaxis: Was on not Coumadin, switch to Eliquis once hemoglobin is stable and workup done. Discharge Planning DC when improved and cleared by hem/onc> Cleared by GI to f/u as OP. Patient can have lowest dose of anticoagulation per GI. Hem/onc to give final recs for anticoagulation Status post EGD and colonoscopy. Found with uncontrolled stomach ulcers continue pantoprazole 40 mg daily to follow-up with GI as outpatient biopsies are pending and follow-up as outpatient for results. Per GI patient might have the lowest dose of anticoagulation she is leaving due to stomach ulcers. PT to evaluate patient and recommend patient needs home health versus nursing facility. Discussed with the patient however she is refusing nursing home facility however she also says she cannot walk and she cannot go home. She wants to stay in the hospital. Hortensia King MD Aug 15, 2017 10:10
--- NOTE | 2017-08-15 11:43 | PD.ONC.PN ---
Subjective Subjective Remarks Afebrile overnight. Patient resting in bed. distressed about the possibility of going to a detention. she denies any obvious blood in stool. discussed findings on colonoscopy/EGD report. discussed conflicting needs of DVT vs. risk of GI bleed. Objective Data Date Time Temp Pulse Resp B/P (MAP) Pulse Ox O2 Delivery O2 Flow Rate FiO2 08/15/17 08:00 98.1 71 16 109/55 (73) 96 08/15/17 03:45 98.7 77 18 107/62 (77) 98 08/14/17 23:10 98.3 88 18 117/62 (80) 96 08/14/17 20:28 98.6 92 18 132/71 (91) 97 08/14/17 16:00 97.7 75 17 148/72 (97) 96 08/14/17 14:38 98.4 75 16 128/70 (89) 96 08/14/17 12:00 98.1 75 17 116/65 (82) 95 08/15/17 08/15/17 08/15/17 07:00 15:00 23:00 Intake Total 480 ml Balance 480 ml Result Diagram: 08/15/17 0634 08/13/17 1624 Laboratory Results Laboratory Tests Test 08/15/17 06:34 White Blood Count 5.4 TH/MM3 Red Blood Count 3.43 MIL/MM3 Hemoglobin 8.9 GM/DL Hematocrit 27.0 % Mean Corpuscular Volume 78.8 FL Mean Corpuscular Hemoglobin 25.8 PG Mean Corpuscular Hemoglobin Concent 32.7 % Red Cell Distribution Width 17.1 % Platelet Count 336 TH/MM3 Mean Platelet Volume 8.3 FL Neutrophils (%) (Auto) 76.3 % Lymphocytes (%) (Auto) 11.0 % Monocytes (%) (Auto) 10.2 % Eosinophils (%) (Auto) 2.0 % Basophils (%) (Auto) 0.5 % Neutrophils # (Auto) 4.1 TH/MM3 Lymphocytes # (Auto) 0.6 TH/MM3 Monocytes # (Auto) 0.6 TH/MM3 Eosinophils # (Auto) 0.1 TH/MM3 Basophils # (Auto) 0.0 TH/MM3 CBC Comment DIFF FINAL Differential Comment Prothrombin Time 15.8 SEC Prothromb Time International Ratio 1.6 RATIO Activated Partial Thromboplast Time 33.4 SEC Administered Medications Medications (Trade) Dose Ordered Sig/Deng Route PRN Reason Start Time Stop Time Status Last Admin Dose Admin Sodium Chloride (NS Flush) 2 ml UNSCH PRN IV FLUSH FLUSH AFTER USING IV ACCESS 08/07/17 22:00 08/09/17 18:04 Sodium Chloride (NS Flush) 2 ml BID IV FLUSH 08/08/17 09:00 08/15/17 08:25 Furosemide (Lasix) 20 mg BID PO 08/08/17 09:00 Future Hold 08/12/17 09:04 Metolazone (Zaroxolyn) 5 mg DAILY PO 08/08/17 09:00 Future Hold 08/12/17 09:06 Potassium Chloride (KCl) 30 meq DAILY PO 08/08/17 09:00 08/15/17 08:21 Morphine Sulfate (Morphine Inj) 2 mg Q3H PRN IV PUSH breakthrough pain 08/07/17 22:45 08/15/17 03:48 Insulin Aspart (NovoLOG SUPPLEMENTAL SCALE) 1 ACHS SLIDING SCALE SQ 08/10/17 17:00 08/10/17 20:16 Trimethoprim/ Sulfamethoxazole (Bactrim Ds 800-160 Mg) 1 tab Q12HR PO 08/11/17 11:00 Future Hold 08/12/17 09:04 Lisinopril (Prinivil) 5 mg DAILY PO 08/12/17 09:00 08/15/17 08:21 Sodium Chloride 1,000 ml @ 84 mls/hr [id number] IV 08/12/17 09:15 08/13/17 09:02 Acetaminophen/ Hydrocodone Bitart ([place] 7.5-325 Mg) 1 tab Q4H PRN PO PAIN SCALE 6 TO 10 08/12/17 13:15 08/15/17 08:25 Piperacillin Sod/ Tazobactam Sod 50 ml @ 100 mls/hr Q6H IV 08/12/17 15:00 08/15/17 03:48 Ondansetron HCl (Zofran Inj) 4 mg Q6HR PRN IV PUSH nausea/vomiting 08/13/17 12:15 08/15/17 00:11 Pantoprazole Sodium (Protonix Inj) 40 mg Q12H IV PUSH 08/13/17 18:00 08/15/17 06:28 Objective Remarks GENERAL: Pleasant obese female, sitting up in bed. SKIN: Warm and dry. HEAD: Normocephalic. EYES: No scleral icterus. No injection or drainage. NECK: Supple, trachea midline. CARDIOVASCULAR: +S1/S2 RESPIRATORY: anterior chopra clear. GASTROINTESTINAL: Abdomen soft, non-tender, nondistended. EXTREMITIES: No cyanosis. NEUROLOGICAL: awake and alert. normal speech. oriented x 3. Assessment/Plan Assessment 56-year-old female with history of lower extremity DVTs admitted with swelling and pain to the right leg that appears to be cellulitis Hx/Workup: Patient has a history of recurrent lower extremity DVTs dating back to 2006. She has had an IVC filter since the summer 2016. It is possible that she has chronic DVTs and currently there is no evidence that she has necessarily failed warfarin. --The patient is positive for DVT on the right extending from the inguinal region to the proximal calf --Left leg negative for DVT --VQ scan shows no evidence for pulmonary embolus Plan 1. Ms. Petersen finds herself in the difficulty position of having conflicting healthcare needs. On the one hand, she needs anticoagulation because of her history of DVT's and because of her ongoing risk of forming new clots from her risk factors of being obese, relatively immobile, and having an IVC filter. She will therefore likely need to be on anticoagulation of some kind for the rest of her life. She also has anemia and had a recent EGD that shows gastric ulcers and risk of GI bleeding. As I discussed with Ms. Petersen, there is no anticoagulation that I can place her on that does not put her at risk of bleeding. We discussed therefore, that it might be reasonable to place her on a low dose of an anticoagulant with a relatively lower bleeding risk. Ms. Petersen was agreeable with this plan, and we discussed starting Eliquis 2.5mg PO BID. We additionally discussed that she will need monitoring and a repeat EGD in the coming weeks to months to hopefully show resolution of the gastric ulcers. If at the time of the repeat EGD her gastric ulcers have cleared and her H/H remains stable, we discussed increasing her anticoagulation to a therapeutic dose at that time. Ms. Petersen was happy with this plan and assured me she would also immediately report any signs of GI bleeding (i.e. blood in stool or vomiting blood) to her doctors immediately. d/w patient, Dr. Smith. Maribel Motley Aug 15, 2017 11:43
[2017-08-15 12:00] VITALS: BP 110/64; PULSE 80; RESP 17; TEMP 98.1; O2SAT 98
--- NOTE | 2017-08-15 13:19 | HHI.GIFU ---
Subjective Remarks Pt resting in bed, aunt at bedside. c/o knee pain. Eating well. (Billie Forrester) Objective Vitals I&O Vital Signs Date Time Temp Pulse Resp B/P (MAP) Pulse Ox O2 Delivery O2 Flow Rate FiO2 08/15/17 12:00 98.1 80 17 110/64 (79) 98 08/15/17 08:00 98.1 71 16 109/55 (73) 96 08/15/17 03:45 98.7 77 18 107/62 (77) 98 08/14/17 23:10 98.3 88 18 117/62 (80) 96 08/14/17 20:28 98.6 92 18 132/71 (91) 97 08/14/17 16:00 97.7 75 17 148/72 (97) 96 08/14/17 14:38 98.4 75 16 128/70 (89) 96 I/O 08/14/17 08/14/17 08/14/17 08/15/17 08/15/17 08/15/17 07:00 15:00 23:00 07:00 15:00 23:00 Intake Total 100 ml 320 ml 480 ml Balance 100 ml 320 ml 480 ml Intake Oral 320 ml 480 ml Other 100 ml # Voids 5 4 # Bowel Movements 0 0 Laboratory Laboratory Tests Test 08/15/17 06:34 White Blood Count 5.4 Red Blood Count 3.43 Hemoglobin 8.9 Hematocrit 27.0 Mean Corpuscular Volume 78.8 Mean Corpuscular Hemoglobin 25.8 Mean Corpuscular Hemoglobin Concent 32.7 Red Cell Distribution Width 17.1 Platelet Count 336 Mean Platelet Volume 8.3 Neutrophils (%) (Auto) 76.3 Lymphocytes (%) (Auto) 11.0 Monocytes (%) (Auto) 10.2 Eosinophils (%) (Auto) 2.0 Basophils (%) (Auto) 0.5 Neutrophils # (Auto) 4.1 Lymphocytes # (Auto) 0.6 Monocytes # (Auto) 0.6 Eosinophils # (Auto) 0.1 Basophils # (Auto) 0.0 CBC Comment DIFF FINAL Differential Comment Prothrombin Time 15.8 Prothromb Time International Ratio 1.6 Activated Partial Thromboplast Time 33.4 Date/Time Source Procedure Growth Status 08/09/17 10:36 Blood Peripheral Aerobic Blood Culture - Final NO GROWTH IN 5 DAYS Complete 08/09/17 10:36 Blood Peripheral Anaerobic Blood Culture - Final NO GROWTH IN 5 DAYS Complete Imaging Last Impressions Lower Extremity Ultrasound 08/09/17 0000 Signed Impressions: Service Date/Time: Wednesday, August 09, 2017 09:18 - CONCLUSION: Extensive subcutaneous edema identified within the calf which limits visualization of the posterior tibial vein. No DVT is identified. Angelita Schafer MD Carotid Artery Ultrasound 08/08/17 0000 Signed Impressions: Service Date/Time: Tuesday, August 08, 2017 11:16 - CONCLUSION: Mild noncalcified plaque seen real-time images. However, hemodynamic parameters are borderline elevated suggesting possible 50-70%% stenoses. Otto Zhang MD Chest X-Ray 08/07/17 1650 Signed Impressions: Service Date/Time: August 16:59 - CONCLUSION: 1. Cardiomegaly. Matt Falk MD Lung Scan-V Nuclear Medicine 08/07/17 0000 Signed Impressions: Service Date/Time: August 19:16 - CONCLUSION: 1. No evidence for pulmonary embolus. Chaz Arguelles MD Head CT 08/07/17 0000 Signed Impressions: Service Date/Time: August 17:59 - CONCLUSION: 1. No acute findings in the brain. Otto Zhang MD Physical Exam HEENT: PERRL; normocephalic; atraumatic; no jaundice. CHEST: CTA CARDIAC: RRR ABDOMEN: Soft, obese, LUQ TTP; no hepatosplenomegaly; bowel sounds are present in all four quadrants. EXTREMITIES: No clubbing, cyanosis, + BLE edema SKIN: Normal; no rash; no jaundice. PARAMEDIC: No focal deficits; alert and oriented times three. (Billie Forrester [facility]) Assessment and Plan Plan Assessment: - Anemia- microcytic, hypochromic- significant drop in H/H from 08/07 Went from 9.5/28.6 to 6.8/20.4 on 08/12. Pt denies history of GIB. Denies any obvious GIB at this time. No BM in three days, denies blood in stool prior to that. (+) nausea for a few days and one episode of emesis today, denies hematemesis and coffee ground emesis. Poor appetite for approx a week. States abdominal pain but unable to localize or describe. Reports previous EGD and colonoscopy 3 years ago, states was done at this facility but not seen in records, says both exams were normal. Seen by hematology: Ferritin-833 Iron-71 TIBC-161 %sat-44.1 erythropoietin pending. Haptoglobin-275 - DVT- on Coumadin- INR 12.3 on admission, S/P Vit K currently 1.8 Planning on starting Eliquis after GI work up and H/H is stable - RLE cellulitis- abx per attending 08/14/17 Patient was seen and examined, patient has anemia, heme-positive stool, possible GI bleed, had an upper endoscopy and colonoscopy today IMPRESSION: Esophagus normal Stomach has multiple ulcers mostly in the antrum severe gastritis biopsy from the antrum to rule out H. pylori Duodenum normal Colonoscopy was normal with some stool throughout the colon 08/15/17 eating ok. HH is stable. no bleeding. PLAN: SAVITA avoid NSAIDs Protonix 40 mg daily await bx if needed, lowest possible therapeutic dose with close monitoring of HH f/u with GI after d/c HH is stable today, Okay to discharge from GI pt seen by myself and Dr Oconnell and this note is on his behalf (Billie Forrester) Plan Patient was seen and examined, agree with above note, she is doing well, no active bleeding at this time, keep INR therapeutic, at the lowest and possible, we will sign off (Gayla Oconnell MD) Billie Forrester Aug 15, 2017 13:19 Gayla Oconnell MD Aug 15, 2017 17:01
[2017-08-15] MEDS ORDERED: APIX2.5T PO (15:43)
[2017-08-15] MEDS ORDERED: PANT40TA3 PO (15:43)
--- NOTE | 2017-08-15 15:43 | HHI.DS ---
Discharge Summary Admission Date Aug 07, 2017 at 21:27 Discharge Date: Aug 15, 2017 Admitting Diagnosis DVT on coumadin, warfarin induced coagulopathy, syncope (1) Cellulitis of right lower extremity ICD Code: L03.115 - Cellulitis of right lower limb (2) Warfarin-induced coagulopathy ICD Code: D68.32 - Hemorrhagic disorder due to extrinsic circulating anticoagulants; T45.515A - Adverse effect of anticoagulants, initial encounter Status: Acute (3) DVT (deep venous thrombosis) ICD Code: I82.409 - Acute embolism and thrombosis of unspecified deep veins of unspecified lower extremity Status: Chronic (4) Microcytic anemia ICD Code: D50.9 - Iron deficiency anemia, unspecified (5) Syncope ICD Code: R55 - Syncope and collapse Status: Acute (6) Stomach ulcer ICD Code: K25.9 - Gastric ulcer, unspecified as acute or chronic, without hemorrhage or perforation (7) Hyperglycemia ICD Code: R73.9 - Hyperglycemia, unspecified Status: Acute (8) Hypokalemia ICD Code: E87.6 - Hypokalemia Status: Acute Procedures EGD/colonoscopy 08/14/17 Brief History - From Admission 56-year-old female with a past medical history significant for borderline mental retardation, adjustment reaction, anxiety, diabetes, GERD, hypertension and history of previously diagnosed DVT was brought to the emergency department for evaluation of a syncopal episode. The patient has a known DVT in her right lower extremity and was having an outpatient ultrasound done yesterday when she had a syncopal episode that was witnessed by staff and family. The patient is an extremely poor historian and is unable to provide me with any information. She states she is having pain in her right lower extremity, worse in the calf region and states that that is why she came to the emergency department today. She denies any other complaints at this time. She states that her DVT was diagnosed yesterday and she was started on blood thinner. The patient is on Coumadin and has a supratherapeutic INR of 12.3. She denies chest pain or shortness of breath. No abdominal pain. No nausea/vomiting/diarrhea. States she does have difficulty walking secondary to right lower extremity pain. CBC/BMP: 08/15/17 0634 08/13/17 1624 Significant Findings Laboratory Tests Test 08/12/17 21:47 08/13/17 16:24 08/14/17 04:45 08/15/17 06:34 Red Blood Count 3.26 MIL/MM3 (4.00-5.30) 3.63 MIL/MM3 (4.00-5.30) 3.42 MIL/MM3 (4.00-5.30) 3.43 MIL/MM3 (4.00-5.30) Hemoglobin 8.8 GM/DL (11.6-15.3) 9.7 GM/DL (11.6-15.3) 8.9 GM/DL (11.6-15.3) 8.9 GM/DL (11.6-15.3) Hematocrit 25.6 % (35.0-46.0) 28.5 % (35.0-46.0) 27.1 % (35.0-46.0) 27.0 % (35.0-46.0) Mean Corpuscular Volume 78.4 FL (80.0-100.0) 78.6 FL (80.0-100.0) 79.2 FL (80.0-100.0) 78.8 FL (80.0-100.0) Mean Corpuscular Hemoglobin 26.9 PG (27.0-34.0) 26.7 PG (27.0-34.0) 26.1 PG (27.0-34.0) 25.8 PG (27.0-34.0) Neutrophils (%) (Auto) 86.2 % (16.0-70.0) 87.3 % (16.0-70.0) 82.5 % (16.0-70.0) 76.3 % (16.0-70.0) Lymphocytes (%) (Auto) 6.3 % (9.0-44.0) 5.7 % (9.0-44.0) 7.3 % (9.0-44.0) Neutrophils # (Auto) 8.3 TH/MM3 (1.8-7.7) Lymphocytes # (Auto) 0.6 TH/MM3 (1.0-4.8) 0.5 TH/MM3 (1.0-4.8) 0.4 TH/MM3 (1.0-4.8) 0.6 TH/MM3 (1.0-4.8) Blood Urea Nitrogen 23 MG/DL (7-18) 20 MG/DL (7-18) Creatinine 1.22 MG/DL (0.50-1.00) 1.08 MG/DL (0.50-1.00) Random Glucose 127 MG/DL (74-106) 114 MG/DL (74-106) Calcium Level 8.2 MG/DL (8.5-10.1) Estimat Glomerular Filtration Rate 55 ML/MIN (>89) 64 ML/MIN (>89) Prothrombin Time 17.5 SEC (9.8-11.6) 17.2 SEC (9.8-11.6) 15.8 SEC (9.8-11.6) Activated Partial Thromboplast Time 31.7 SEC (24.3-30.1) 33.4 SEC (24.3-30.1) Aspartate Amino Transf (AST/SGOT) 43 U/L (15-37) Albumin 2.2 GM/DL (3.4-5.0) Monocytes (%) (Auto) 10.2 % (0.0-8.0) Imaging Last Impressions Lower Extremity Ultrasound 08/09/17 0000 Signed Impressions: Service Date/Time: Wednesday, August 09, 2017 09:18 - CONCLUSION: Extensive subcutaneous edema identified within the calf which limits visualization of the posterior tibial vein. No DVT is identified. Angelita Schafer MD Carotid Artery Ultrasound 08/08/17 0000 Signed Impressions: Service Date/Time: Tuesday, August 08, 2017 11:16 - CONCLUSION: Mild noncalcified plaque seen real-time images. However, hemodynamic parameters are borderline elevated suggesting possible 50-70%% stenoses. Otto Zhang MD Chest X-Ray 08/07/17 1650 Signed Impressions: Service Date/Time: August 16:59 - CONCLUSION: 1. Cardiomegaly. Matt Falk MD Lung Scan- Nuclear Medicine 08/07/17 0000 Signed Impressions: Service Date/Time: August 19:16 - CONCLUSION: 1. No evidence for pulmonary embolus. Chaz Arguelles MD Head CT 08/07/17 0000 Signed Impressions: Service Date/Time: August 17:59 - CONCLUSION: 1. No acute findings in the brain. Otto Zhang MD PE at Discharge GENERAL: Morbidly obese female laying in bed in NAD. SKIN: Warm and dry. HEENT: Pupils equal and round. MMM. NECK: Supple no tender LAD or JVD. HEART: RRR no m/r/g. LUNGS: CTAB without wheezes or crackles. ABDOMEN: Soft, NT, ND. EXTREMITIES: B/L LE edematous and enlarged. Warmth, induration, and tenderness with minimal palpation over R calf and schwab. NEURO: Awake and alert. No focal deficits. Hospital Course 56 yo AA female presented on 08/08 after having a witnessed syncopal episode. On admission she was found to have a supratherapeutic INR of 12.3 on admission. Patient also with DVT no PE. patient with anemia of GIB 2/2 stomach ulcers. On eliquis at [place]. dc to snf in stable condition to follow up as OP with Pcp and consultants Patient with DVT left leg however also with anemia and stomach ulcers. On PPI,. anticoagulation per GI and hem/onc recs. Syncope Head CT negative, Carotid U/S with mild noncalcified plaque with borderline hemodynamic parameters suggesting possible 50-70% stenosis - Echo with low-normal EF of 50-55% and mild concentric LVH, ACS ruled out - Orthostatics borderline negative. - Etiology syncope possibly vasovagal vs dehydration as the patient states she hadn't eaten in four days prior to the episode - Encourage adequate hydration Anemia Antral stomach ulcers - Monitor closely, follow-up hematology workup, hold off anticoagulation, transfuse packed red blood cells today with hemoglobin of 6.8. Recheck CBC tomorrow - consult GI to r/o GI source of bleeding -Status post EGD and colonoscopy. Found with uncontrolled stomach ulcers continue pantoprazole 40 mg daily to follow-up with GI as outpatient biopsies are pending and follow-up as outpatient for results. Per GI patient might have the lowest dose of anticoagulation she is leaving due to stomach ulcers. Supratherapeutic INR - Resolved s/p vitamin K - INR 1.8 today, plan is to switch to Eliquis once anemia workup is finished. Pending Hemoccult. Chronic RLE DVT - Anticoagulated on Coumadin which hematology recommends continuing as it is impossible to tell if there is an acute DVT - D/W patient the chronicity of her clot burden and that she is going to continue having discomfort and swelling - Elevate leg, ? Cellulitis, continue anticoagulation per hematology, switch to Eliquis Cellulitis RLE - Pt initially started on broad spectrum with Vanc and Zosyn, de-escalated to Rocephin, patient now mildly hypotensive,? Beginning sepsis however no leukocytosis. Blood cultures negative. No active drainage. Hypotension could also be secondary to anemia. Switch back to Zosyn, monitor. Recheck CBC tomorrow. Diabetes mellitus 2 - SSI per protocol HTN - BPs have been on the lower end, start normal saline - D/C Amlodipine and replace with low-dose Lisinopril mostly for renal protection in light of DM, monitor. LE edema -Hold Lasix and metolazone because of hypotension - Monitor electrolytes - Continue KCl BROWN - Renal function worsening, start normal saline, diuretics on hold - Avoid nephrotoxic agents, recheck BMP tomorrow. Hypokalemia-replace, recheck tomorrow. Constipation Stool softeners, laxatives as need. DVT prophylaxis: Was on not Coumadin, switch to Eliquis once hemoglobin is stable and workup done. Discharge Planning DC when improved and cleared by hem/onc> Cleared by GI to f/u as OP. Patient can have lowest dose of anticoagulation per GI. Hem/onc to give final recs for anticoagulation Status post EGD and colonoscopy. Found with uncontrolled stomach ulcers continue pantoprazole 40 mg daily to follow-up with GI as outpatient biopsies are pending and follow-up as outpatient for results. Per GI patient might have the lowest dose of anticoagulation she is leaving due to stomach ulcers. PT to evaluate patient and recommend patient needs home health versus nursing facility. Discussed with the patient however she is refusing prison facility however she also says she cannot walk and she cannot go home. She wants to stay in the hospital. Discussed with the patient son and wants patient to go to SNF. Discussed with the case management ff for DC plan and finding SNF if approved. dc to snf in stable condition to follow up as OP with Pcp and consultants Pt Condition on Discharge: Stable Discharge Disposition: Disch w/ Home Health Serv Discharge Time: > 30 minutes Discharge Instructions DIET: Follow Instructions for: Heart Healthy Diet Activities you can perform: Regular-No Restrictions Follow up Referrals: Appointment for Follow Up @ DR. SMITH Appointment for Follow Up @ Gastroenterology - 2 Weeks Oncology/Hematology - 6 Weeks with Ronni Smith MD PCP Follow-up - 2-3 Days PCP Follow-up @ DR. SO New Medications: Clindamycin (Clindamycin) 300 Mg Cap 300 MG PO TID for Infection, #21 CAP 0 Refills Hydrocodone-Acetaminophen ([place]) 5 Mg-325 Mg Tab 1 TAB PO Q6H PRN for PAIN, #20 TAB 0 Refills Pantoprazole (Pantoprazole) 40 Mg Tab 40 MG PO DAILY for Reflux, #30 TAB 0 Refills Sennosides-Docusate Sodium (Senna-Plus) 8.6-50 Mg Tab 1 TAB PO DAILY for Constipation, #30 TAB 0 Refills Apixaban (Eliquis) 2.5 Mg Tab 2.5 MG PO BID for Blood Clot Prevention, #60 TAB Continued Medications: Amlodipine (Amlodipine) 5 Mg Tab 5 MG PO DAILY for Blood Pressure Management, #30 TAB 0 Refills Furosemide (Lasix) 20 Mg Tab 20 MG PO BID, #60 TAB 0 Refills Metolazone (Metolazone) 5 Mg Tab 5 MG PO DAILY, #30 TAB 0 Refills Potassium Chloride ER (Potassium Chloride ER) 10 Meq Tab 30 MEQ PO DAILY for Electrolyte Replacement, #30 TAB 0 Refills Discontinued Medications: Warfarin (Warfarin) 5 Mg Tab 5 MG PO DAILY for Blood Clot Prevention, #30 TAB 0 Refills Warfarin (Warfarin) 10 Mg Tab 10 MG PO DAILY for Blood Clot Prevention, #30 TAB 0 Refills Hortensia King MD Aug 15, 2017 15:43
[2017-08-15 16:00] VITALS: BP 113/57; PULSE 90; RESP 16; TEMP 98.9; O2SAT 97
[2017-08-15] MEDS ORDERED: NORC5TAB PO (16:42)
[2017-08-15] MEDS ORDERED: SENN1TAB PO (16:42)
--- NOTE | 2017-08-15 16:43 | HHI.FF ---
Face to Face Verification Diagnosis: (1) Microcytic anemia (2) Hypokalemia (3) DVT (deep venous thrombosis) (4) Hyperglycemia (5) Stomach ulcer (6) Syncope (7) Warfarin-induced coagulopathy (8) Cellulitis of right lower extremity Physical Therapy Order: Evaluate and Treat Home Health Nursing Order: Medical education Signs/symptoms of disease process Medication education-adverse effect Nursing assessment with vital signs I have seen patient Aida Petersen on 08/15/17. My clinical findings support the need for the requested home health care services because: Ltd mobility - disease progression I certify that my clinical findings support that this patient is homebound because: Post-op weakness Hortensia King MD Aug 15, 2017 16:43
[2017-08-15] MEDS ORDERED: CLIN300C5 PO (16:51)
--- NOTE | 2017-08-15 17:08 | PQ ---
Physician Query Response Document PATIENT: RUT GARCIA : 1960 ADMIT DATE: 08/07/2017 9:27 PM DISCH DATE: RESPONDING PROVIDER #: [email or web address] QUERY TEXT: CDS Clarification Acute posthemorrhagic anemia in the setting of drop in HCT/HGB to 6.8/20.4 treated with transfusion Other explanation of clinical findings. Unable to determine (no explanation for clinical findings). The patient's Clinical Indicators include: The medical record reflects the following clinical findings, treatment, and risk factors. * Clinical Indicators: HCT/HGB to 6.8/20.4 * Risk Factors: Chronic DVT, recent use of Coumadin * Treatment: Transfusions, lab monitoring Please clarify and document your clinical opinion in the progress notes and discharge summary includi ng the definitive and/or presumptive diagnosis (suspected or probable), related to the above clinical findings. Please include clinical findings supporting your diagnosis. Thank you, Janett Jackson : CDS/RN ext. [phone] Query created by: Janett Jackson on 08/14/2017 11:29 AM RESPONSE TEXT: Patient with anemia likely 2/2 GIB from antral stomach ulcers , was on anticoagulation with elevated supratherapeutic INR. Patient is also s/p EGD /colonoscopy on 08/14/17 with findings of antral stomach ulcers. Electronically signed by: Hortensia King MD 08/15/2017 5:05 PM
[2017-08-15 20:00] VITALS: BP 125/61; PULSE 92; RESP 18; TEMP 99.2; O2SAT 92
[2017-08-15] MEDS: APIXABAN 2.5 MG TABLET PO SCH (20:03)
[2017-08-15] MEDS: CLINDAMYCIN 150 MG CAP PO SCH (23:04)
[2017-08-16] VITALS (8 sets, daily range): BP systolic 99–137; BP diastolic 55–74; PULSE 71–98; RESP 18–22; TEMP 98–99.6; O2SAT 93–98
[2017-08-16] MEDS: CLINDAMYCIN 150 MG CAP PO SCH ×3 (06:15→23:38)
[2017-08-16] MEDS: ACETAMINOPHEN/HYDROcodone 325 MG/7.5 MG TAB PO PRN ×3 (06:15→20:17)
[2017-08-16] MEDS: PANTOPRAZOLE SODIUM 40 MG VIAL IV PUSH SCH ×2 (06:16→17:44)
[2017-08-16 07:55] LABS: AUTOMATED NEUTROPHIL # 5.4 TH/MM3 (1.8-7.7); BASOPHIL % 0.5 % (0.0-2.0); EOSINOPHIL # 0.1 TH/MM3 (0-0.4); HEMATOCRIT 26.7 % (35.0-46.0); HEMOGLOBIN 8.8 GM/DL (11.6-15.3); LYMPH % 11.1 % (9.0-44.0); LYMPHOCYTE # 0.8 TH/MM3 (1.0-4.8); MEAN CELL VOLUME 78.5 FL (80.0-100.0); MEAN CORPUSCULAR HEMOGLOBIN 25.9 PG (27.0-34.0); MEAN PLATELET VOLUME 8.1 FL (7.0-11.0); MONO % 8.2 % (0.0-8.0); MONOCYTE # 0.6 TH/MM3 (0-0.9); NEUT % 79.2 % (16.0-70.0); PLATELET COUNT 357 TH/MM3 (150-450); RED CELL DISTRIBUTION WIDTH 17.2 % (11.6-17.2); WHITE BLOOD COUNT 6.8 TH/MM3 (4.0-11.0)
[2017-08-16] MEDS: INSULIN ASPART SUPPLEMENTAL SCALE SQ SCH ×4 (08:00→21:00)
[2017-08-16 08:03] LABS: INTERNATIONAL NORMALIZED RATIO 1.5 RATIO; PROTHROMBIN TIME - PATIENT 14.9 SEC (9.8-11.6)
[2017-08-16 08:33] LABS: BICARBONATE 28.4 MEQ/L (21.0-32.0); CALCIUM 9.3 MG/DL (8.5-10.1); CREATININE 0.8 MG/DL (0.50-1.00)
[2017-08-16] MEDS: LISINOPRIL 5 MG TAB PO SCH (08:49)
[2017-08-16] MEDS: APIXABAN 2.5 MG TABLET PO SCH ×2 (08:49→20:18)
[2017-08-16] MEDS: POTASSIUM CHLORIDE 10 MEQ CONTROLLED RELEASE TAB PO SCH (08:50)
[2017-08-16] MEDS: SODIUM CHLORIDE 0.9% FLUSH 10 ML FLUSH IV FLUSH SCH ×2 (08:50→20:18)
--- NOTE | 2017-08-16 14:04 | HHI.PR ---
Subjective Remarks In bed. Says she has pain in her leg. No n/v/d/c. No fever or chills. Objective Vitals Vital Signs Date Time Temp Pulse Resp B/P (MAP) Pulse Ox O2 Delivery O2 Flow Rate FiO2 08/16/17 08:10 79 08/16/17 08:00 98.3 80 22 116/63 (80) 94 08/16/17 07:15 20 08/16/17 04:00 98.5 84 19 103/55 (71) 93 08/16/17 00:00 98.8 94 19 112/58 (76) 93 08/15/17 20:00 99.2 92 18 125/61 (82) 92 08/15/17 16:00 98.9 90 16 113/57 (75) 97 I/O 08/15/17 08/15/17 08/15/17 08/16/17 08/16/17 08/16/17 07:00 15:00 23:00 07:00 15:00 23:00 Intake Total 530 ml 360 ml 480 ml 150 ml Balance 530 ml 360 ml 480 ml 150 ml Intake Oral 480 ml 360 ml 480 ml IV Total 50 ml 150 ml # Voids 4 2 2 # Bowel Movements 0 0 Result Diagram: 08/16/17 0720 08/16/17 0720 Imaging Last Impressions Lower Extremity Ultrasound 08/09/17 0000 Signed Impressions: Service Date/Time: Wednesday, August 09, 2017 09:18 - CONCLUSION: Extensive subcutaneous edema identified within the calf which limits visualization of the posterior tibial vein. No DVT is identified. Angelita Schafer MD Carotid Artery Ultrasound 08/08/17 0000 Signed Impressions: Service Date/Time: Tuesday, August 08, 2017 11:16 - CONCLUSION: Mild noncalcified plaque seen real-time images. However, hemodynamic parameters are borderline elevated suggesting possible 50-70%% stenoses. Otto Zhang MD Chest X-Ray 08/07/17 1650 Signed Impressions: Service Date/Time: August 16:59 - CONCLUSION: 1. Cardiomegaly. Matt Falk MD Lung Scan- Nuclear Medicine 08/07/17 0000 Signed Impressions: Service Date/Time: August 19:16 - CONCLUSION: 1. No evidence for pulmonary embolus. Chaz Arguelles MD Head CT 08/07/17 0000 Signed Impressions: Service Date/Time: August 17:59 - CONCLUSION: 1. No acute findings in the brain. Otto Zhang MD Objective Remarks GENERAL: Morbidly obese female laying in bed in NAD. SKIN: Warm and dry. HEENT: Pupils equal and round. MMM. NECK: Supple no tender LAD or JVD. HEART: RRR no m/r/g. LUNGS: CTAB without wheezes or crackles. ABDOMEN: Soft, NT, ND. EXTREMITIES: B/L LE edematous and enlarged. Warmth, induration, and tenderness with minimal palpation over R calf and schwab. NEURO: Awake and alert. No focal deficits. Procedures EGD/colonoscopy 08/14/17 A/P Assessment and Plan 56 yo AA female presented on 08/08 after having a witnessed syncopal episode. On admission she was found to have a supratherapeutic INR of 12.3. Patient with DVT left leg however also with anemia and stomach ulcers. On PPI,. anticoagulation per GI and hem/onc recs. Syncope Head CT negative, Carotid U/S with mild noncalcified plaque with borderline hemodynamic parameters suggesting possible 50-70% stenosis - Echo with low-normal EF of 50-55% and mild concentric LVH, ACS ruled out - Orthostatics borderline negative. - Etiology syncope possibly vasovagal vs dehydration as the patient states she hadn't eaten in four days prior to the episode - Encourage adequate hydration Anemia Antral stomach ulcers - Monitor closely, follow-up hematology workup, hold off anticoagulation, transfuse packed red blood cells today with hemoglobin of 6.8. Recheck CBC tomorrow - consult GI to r/o GI source of bleeding -Status post EGD and colonoscopy. Found with uncontrolled stomach ulcers continue pantoprazole 40 mg daily to follow-up with GI as outpatient biopsies are pending and follow-up as outpatient for results. Per GI patient might have the lowest dose of anticoagulation she is leaving due to stomach ulcers. Supratherapeutic INR - Resolved s/p vitamin K - INR 1.8 today, plan is to switch to Eliquis once anemia workup is finished. Pending Hemoccult. Chronic RLE DVT - Anticoagulated on Coumadin which hematology recommends continuing as it is impossible to tell if there is an acute DVT - D/W patient the chronicity of her clot burden and that she is going to continue having discomfort and swelling - Elevate leg, ? Cellulitis, continue anticoagulation per hematology, switch to Eliquis Cellulitis RLE - Pt initially started on broad spectrum with Vanc and Zosyn, de-escalated to Rocephin, patient now mildly hypotensive,? Beginning sepsis however no leukocytosis. Blood cultures negative. No active drainage. Hypotension could also be secondary to anemia. Switch back to Zosyn, monitor. Recheck CBC tomorrow. Diabetes mellitus 2 - SSI per protocol HTN - BPs have been on the lower end, start normal saline - D/C Amlodipine and replace with low-dose Lisinopril mostly for renal protection in light of DM, monitor. LE edema -Hold Lasix and metolazone because of hypotension - Monitor electrolytes - Continue KCl BROWN - Renal function worsening, start normal saline, diuretics on hold - Avoid nephrotoxic agents, recheck BMP tomorrow. Hypokalemia-replace, recheck tomorrow. DVT prophylaxis: Was on not Coumadin, switch to Eliquis once hemoglobin is stable and workup done. Discharge Planning DC when improved and cleared by hem/onc> Cleared by GI to f/u as OP. Patient can have lowest dose of anticoagulation per GI. Hem/onc to give final recs for anticoagulation Status post EGD and colonoscopy. Found with uncontrolled stomach ulcers continue pantoprazole 40 mg daily to follow-up with GI as outpatient biopsies are pending and follow-up as outpatient for results. Per GI patient might have the lowest dose of anticoagulation she is leaving due to stomach ulcers. PT to evaluate patient and recommend patient needs home health versus nursing facility. Discussed with the patient however she is refusing alf facility however she also says she cannot walk and she cannot go home. She wants to stay in the hospital. Discussed with the patient son and wants patient to go to SNF. Discussed with the case management ff for DC plan and finding SNF if approved. Hortensia King MD Aug 16, 2017 14:04
[2017-08-16] MEDS: MORPHINE SULFATE 2 MG/ML SYRINGE IV PUSH PRN (23:31)
[2017-08-17] VITALS (7 sets, daily range): BP systolic 105–131; BP diastolic 54–70; PULSE 74–94; RESP 17–18; TEMP 97.5–99.4; O2SAT 94–97
[2017-08-17] MEDS: ACETAMINOPHEN/HYDROcodone 325 MG/7.5 MG TAB PO PRN ×4 (03:17→21:43)
[2017-08-17] MEDS: CLINDAMYCIN 150 MG CAP PO SCH ×3 (07:41→21:44)
[2017-08-17] MEDS: PANTOPRAZOLE SODIUM 40 MG VIAL IV PUSH SCH ×2 (07:43→17:18)
[2017-08-17] MEDS: INSULIN ASPART SUPPLEMENTAL SCALE SQ SCH ×4 (08:00→21:00)
[2017-08-17] MEDS: APIXABAN 2.5 MG TABLET PO SCH ×2 (08:36→21:44)
[2017-08-17] MEDS: SODIUM CHLORIDE 0.9% FLUSH 10 ML FLUSH IV FLUSH SCH ×3 (08:36→21:45)
[2017-08-17] MEDS: LISINOPRIL 5 MG TAB PO SCH (08:36)
[2017-08-17] MEDS: POTASSIUM CHLORIDE 10 MEQ CONTROLLED RELEASE TAB PO SCH (08:36)
[2017-08-17] MEDS: FERROUS SULFATE 325 MG (65 MG ELEMENTAL IRON) TAB PO SCH (08:36)
--- NOTE | 2017-08-17 15:27 | HHI.PR ---
Subjective Remarks In bed appears innad. Says she has stomack pain. She is able to eat, no n/v/d. Last time she had a BM was 2 days ago thinks she is constipated now. No fever or chills. Objective Vitals Vital Signs Date Time Temp Pulse Resp B/P (MAP) Pulse Ox O2 Delivery O2 Flow Rate FiO2 08/17/17 13:40 18 08/17/17 12:00 97.5 76 18 126/70 (88) 97 08/17/17 08:05 78 08/17/17 08:00 97.9 74 17 131/62 (85) 97 08/17/17 04:50 98.5 78 18 114/56 (75) 95 08/16/17 23:40 99.0 88 18 106/55 (72) 98 08/16/17 20:00 99.3 94 18 99/55 (70) 96 08/16/17 16:00 99.6 71 20 124/66 (85) 97 08/16/17 16:00 75 I/O 08/16/17 08/16/17 08/16/17 08/17/17 08/17/17 08/17/17 07:00 15:00 23:00 07:00 15:00 23:00 Intake Total 480 ml 150 ml 920 ml 480 ml Balance 480 ml 150 ml 920 ml 480 ml Intake Oral 480 ml 920 ml 480 ml IV Total 150 ml # Voids 2 7 1 # Bowel Movements 0 Result Diagram: 08/16/17 0720 08/16/17 0720 Imaging Last Impressions Lower Extremity Ultrasound 08/09/17 0000 Signed Impressions: Service Date/Time: Wednesday, August 09, 2017 09:18 - CONCLUSION: Extensive subcutaneous edema identified within the calf which limits visualization of the posterior tibial vein. No DVT is identified. Angelita Schafer MD Carotid Artery Ultrasound 08/08/17 0000 Signed Impressions: Service Date/Time: Tuesday, August 08, 2017 11:16 - CONCLUSION: Mild noncalcified plaque seen real-time images. However, hemodynamic parameters are borderline elevated suggesting possible 50-70%% stenoses. Otto Zhang MD Chest X-Ray 08/07/17 1650 Signed Impressions: Service Date/Time: August 16:59 - CONCLUSION: 1. Cardiomegaly. Matt Falk MD Lung Scan-VQ Nuclear Medicine 08/07/17 0000 Signed Impressions: Service Date/Time: August 19:16 - CONCLUSION: 1. No evidence for pulmonary embolus. Chaz Arguelles MD Head CT 08/07/17 0000 Signed Impressions: Service Date/Time: August 17:59 - CONCLUSION: 1. No acute findings in the brain. Otto Zhang MD Objective Remarks GENERAL: Morbidly obese female laying in bed in NAD. SKIN: Warm and dry. HEENT: Pupils equal and round. MMM. NECK: Supple no tender LAD or JVD. HEART: RRR no m/r/g. LUNGS: CTAB without wheezes or crackles. ABDOMEN: Soft, NT, ND. EXTREMITIES: B/L LE edematous and enlarged. Warmth, induration, and tenderness with minimal palpation over R calf and schwab. NEURO: Awake and alert. No focal deficits. Procedures EGD/colonoscopy 08/14/17 A/P Assessment and Plan 56 yo AA female presented on 08/08 after having a witnessed syncopal episode. On admission she was found to have a supratherapeutic INR of 12.3. Patient with DVT left leg however also with anemia and stomach ulcers. On PPI,. anticoagulation per GI and hem/onc recs. Syncope Head CT negative, Carotid U/S with mild noncalcified plaque with borderline hemodynamic parameters suggesting possible 50-70% stenosis - Echo with low-normal EF of 50-55% and mild concentric LVH, ACS ruled out - Orthostatics borderline negative. - Etiology syncope possibly vasovagal vs dehydration as the patient states she hadn't eaten in four days prior to the episode - Encourage adequate hydration Anemia Antral stomach ulcers - Monitor closely, follow-up hematology workup, hold off anticoagulation, transfuse packed red blood cells today with hemoglobin of 6.8. Recheck CBC tomorrow - consult GI to r/o GI source of bleeding -Status post EGD and colonoscopy. Found with uncontrolled stomach ulcers continue pantoprazole 40 mg daily to follow-up with GI as outpatient biopsies are pending and follow-up as outpatient for results. Per GI patient might have the lowest dose of anticoagulation she is leaving due to stomach ulcers. Supratherapeutic INR - Resolved s/p vitamin K - INR 1.8 today, plan is to switch to Eliquis once anemia workup is finished. Pending Hemoccult. Chronic RLE DVT - Anticoagulated on Coumadin which hematology recommends continuing as it is impossible to tell if there is an acute DVT - D/W patient the chronicity of her clot burden and that she is going to continue having discomfort and swelling - Elevate leg, ? Cellulitis, continue anticoagulation per hematology, switch to Eliquis Cellulitis RLE - Pt initially started on broad spectrum with Vanc and Zosyn, de-escalated to Rocephin, patient now mildly hypotensive,? Beginning sepsis however no leukocytosis. Blood cultures negative. No active drainage. Hypotension could also be secondary to anemia. Switch back to Zosyn, monitor. Recheck CBC tomorrow. Diabetes mellitus 2 - SSI per protocol HTN - BPs have been on the lower end, start normal saline - D/C Amlodipine and replace with low-dose Lisinopril mostly for renal protection in light of DM, monitor. LE edema -Hold Lasix and metolazone because of hypotension - Monitor electrolytes - Continue KCl BROWN - Renal function worsening, start normal saline, diuretics on hold - Avoid nephrotoxic agents, recheck BMP tomorrow. Hypokalemia-replace, recheck tomorrow. Constipation Stool softeners, laxatives as need. DVT prophylaxis: Was on not Coumadin, switch to Eliquis once hemoglobin is stable and workup done. Discharge Planning DC when improved and cleared by hem/onc> Cleared by GI to f/u as OP. Patient can have lowest dose of anticoagulation per GI. Hem/onc to give final recs for anticoagulation Status post EGD and colonoscopy. Found with uncontrolled stomach ulcers continue pantoprazole 40 mg daily to follow-up with GI as outpatient biopsies are pending and follow-up as outpatient for results. Per GI patient might have the lowest dose of anticoagulation she is leaving due to stomach ulcers. PT to evaluate patient and recommend patient needs home health versus nursing facility. Discussed with the patient however she is refusing prison facility however she also says she cannot walk and she cannot go home. She wants to stay in the hospital. Discussed with the patient son and wants patient to go to SNF. Discussed with the case management ff for DC plan and finding SNF if approved. Hortensia King MD Aug 17, 2017 15:27
[2017-08-17] MEDS ORDERED: MAGNESIUM HYDROXIDE SUSP 30 ML CUP PO PRN (15:30)
[2017-08-17] MEDS ORDERED: LACTULOSE SYRUP 20 GM/30 ML CUP PO PRN (15:30)
[2017-08-17] MEDS ORDERED: BISACODYL 10 MG SUPP RECTAL PRN (15:30)
[2017-08-17] MEDS ORDERED: SENNOSIDES 8.6 MG TAB PO PRN (15:30)
[2017-08-17] MEDS ORDERED: NALOXONE HCL 0.4 MG/ML AMP IV PUSH PRN (15:30)
[2017-08-17] MEDS ORDERED: SODIUM CHLORIDE 0.9% FLUSH 10 ML FLUSH IV FLUSH PRN (15:30)
[2017-08-17] MEDS: DOCUSATE SODIUM 50 MG/SENNA 8.6 MG TAB PO SCH (21:44)
[2017-08-18 04:10] VITALS: BP 107/55; PULSE 100; RESP 19; TEMP 98.6; O2SAT 96
[2017-08-18] MEDS: CLINDAMYCIN 150 MG CAP PO SCH ×3 (04:21→23:10)
[2017-08-18] MEDS: PANTOPRAZOLE SODIUM 40 MG VIAL IV PUSH SCH ×2 (04:21→18:00)
[2017-08-18] MEDS: ACETAMINOPHEN/HYDROcodone 325 MG/7.5 MG TAB PO PRN ×4 (04:22→23:11)
[2017-08-18 07:35] LABS: AUTOMATED NEUTROPHIL # 5.3 TH/MM3 (1.8-7.7); BASOPHIL % 0.6 % (0.0-2.0); EOSINOPHIL # 0.1 TH/MM3 (0-0.4); EOSINOPHIL % 1.2 % (0.0-4.0); HEMATOCRIT 27.8 % (35.0-46.0); HEMOGLOBIN 9.2 GM/DL (11.6-15.3); LYMPH % 12.5 % (9.0-44.0); LYMPHOCYTE # 0.8 TH/MM3 (1.0-4.8); MEAN CELL VOLUME 78.3 FL (80.0-100.0); MEAN CORPUSCULAR HEMOGLOBIN 25.8 PG (27.0-34.0); MEAN PLATELET VOLUME 8.5 FL (7.0-11.0); MONO % 6.3 % (0.0-8.0); MONOCYTE # 0.4 TH/MM3 (0-0.9); NEUT % 79.4 % (16.0-70.0); PLATELET COUNT 373 TH/MM3 (150-450); RED BLOOD COUNT 3.55 MIL/MM3 (4.00-5.30); RED CELL DISTRIBUTION WIDTH 17.2 % (11.6-17.2); WHITE BLOOD COUNT 6.7 TH/MM3 (4.0-11.0)
[2017-08-18 07:57] LABS: BICARBONATE 27.7 MEQ/L (21.0-32.0); CALCIUM 9.4 MG/DL (8.5-10.1); CREATININE 0.79 MG/DL (0.50-1.00)
[2017-08-18 08:00] VITALS: BP 121/64; PULSE 70; RESP 18; TEMP 97.5; O2SAT 98
[2017-08-18] MEDS: INSULIN ASPART SUPPLEMENTAL SCALE SQ SCH ×4 (08:00→21:00)
[2017-08-18] MEDS: SODIUM CHLORIDE 0.9% FLUSH 10 ML FLUSH IV FLUSH SCH ×4 (09:00→21:02)
[2017-08-18] MEDS: DOCUSATE SODIUM 50 MG/SENNA 8.6 MG TAB PO SCH ×2 (09:38→21:02)
[2017-08-18] MEDS: APIXABAN 2.5 MG TABLET PO SCH ×2 (09:38→21:02)
[2017-08-18] MEDS: LISINOPRIL 5 MG TAB PO SCH (09:38)
[2017-08-18] MEDS: FERROUS SULFATE 325 MG (65 MG ELEMENTAL IRON) TAB PO SCH (09:39)
[2017-08-18] MEDS: POTASSIUM CHLORIDE 10 MEQ CONTROLLED RELEASE TAB PO SCH (09:39)
[2017-08-18 12:00] VITALS: BP 125/62; PULSE 74; RESP 18; TEMP 97.7; O2SAT 95
--- NOTE | 2017-08-18 14:18 | HHI.PR ---
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 Reports she has some mild nausea yesterday did not vomit. Some epigastric abdominal pain. Did not have a bowel movement is able to tolerate breakfast in the morning. No fever or chills. Denies shortness of breath or chest pain. Has pain in her left leg at the DVT site. Objective Vitals Vital Signs Date Time Temp Pulse Resp B/P (MAP) Pulse Ox O2 Delivery O2 Flow Rate FiO2 08/18/17 12:00 97.7 74 18 125/62 (83) 95 08/18/17 08:00 97.5 70 18 121/64 (83) 98 08/18/17 08:00 70 08/18/17 04:10 98.6 100 19 107/55 (72) 96 08/17/17 23:25 98.3 84 17 105/54 (71) 96 08/17/17 20:40 97.7 94 17 111/65 (80) 94 08/17/17 18:24 18 08/17/17 16:00 99.4 85 17 126/62 (83) 95 I/O 08/17/17 08/17/17 08/17/17 08/18/17 08/18/17 08/18/17 07:00 15:00 23:00 07:00 15:00 23:00 Intake Total 480 ml 480 ml Output Total 400 ml Balance 480 ml -400 ml 480 ml Intake Oral 480 ml 480 ml Output Urine Total 400 ml # Voids 1 2 1 # Bowel Movements 0 0 Result Diagram: 08/18/17 0635 08/18/17 0635 Imaging Last Impressions Lower Extremity Ultrasound 08/09/17 0000 Signed Impressions: Service Date/Time: Wednesday, August 09, 2017 09:18 - CONCLUSION: Extensive subcutaneous edema identified within the calf which limits visualization of the posterior tibial vein. No DVT is identified. Angelita Schafer MD Carotid Artery Ultrasound 08/08/17 0000 Signed Impressions: Service Date/Time: Tuesday, August 08, 2017 11:16 - CONCLUSION: Mild noncalcified plaque seen real-time images. However, hemodynamic parameters are borderline elevated suggesting possible 50-70%% stenoses. Otto Zhang MD Chest X-Ray 08/07/17 1650 Signed Impressions: Service Date/Time: August 16:59 - CONCLUSION: 1. Cardiomegaly. Matt Falk MD Lung Scan-VQ Nuclear Medicine 08/07/17 0000 Signed Impressions: Service Date/Time: August 19:16 - CONCLUSION: 1. No evidence for pulmonary embolus. Chaz Arguelles MD Head CT 08/07/17 0000 Signed Impressions: Service Date/Time: August 17:59 - CONCLUSION: 1. No acute findings in the brain. Otto Zhang MD Objective Remarks GENERAL: Morbidly obese female laying in bed in NAD. SKIN: Warm and dry. HEENT: Pupils equal and round. MMM. NECK: Supple no tender LAD or JVD. HEART: RRR no m/r/g. LUNGS: CTAB without wheezes or crackles. ABDOMEN: Soft, NT, ND. EXTREMITIES: B/L LE edematous and enlarged. Warmth, induration, and tenderness with minimal palpation over R calf and schwab. NEURO: Awake and alert. No focal deficits. Procedures EGD/colonoscopy 08/14/17 A/P Assessment and Plan 56 yo AA female presented on 08/08 after having a witnessed syncopal episode. On admission she was found to have a supratherapeutic INR of 12.3. Patient with DVT left leg however also with anemia and stomach ulcers. On PPI,. anticoagulation per GI and hem/onc recs. Syncope Head CT negative, Carotid U/S with mild noncalcified plaque with borderline hemodynamic parameters suggesting possible 50-70% stenosis - Echo with low-normal EF of 50-55% and mild concentric LVH, ACS ruled out - Orthostatics borderline negative. - Etiology syncope possibly vasovagal vs dehydration as the patient states she hadn't eaten in four days prior to the episode - Encourage adequate hydration Anemia Antral stomach ulcers - Monitor closely, follow-up hematology workup, hold off anticoagulation, transfuse packed red blood cells today with hemoglobin of 6.8. Recheck CBC tomorrow - consult GI to r/o GI source of bleeding -Status post EGD and colonoscopy. Found with uncontrolled stomach ulcers continue pantoprazole 40 mg daily to follow-up with GI as outpatient biopsies are pending and follow-up as outpatient for results. Per GI patient might have the lowest dose of anticoagulation she is leaving due to stomach ulcers. Supratherapeutic INR - Resolved s/p vitamin K - INR 1.8 today, plan is to switch to Eliquis once anemia workup is finished. Pending Hemoccult. Chronic RLE DVT - Anticoagulated on Coumadin which hematology recommends continuing as it is impossible to tell if there is an acute DVT - D/W patient the chronicity of her clot burden and that she is going to continue having discomfort and swelling - Elevate leg, ? Cellulitis, continue anticoagulation per hematology, switch to Eliquis Cellulitis RLE - Pt initially started on broad spectrum with Vanc and Zosyn, de-escalated to Rocephin, patient now mildly hypotensive,? Beginning sepsis however no leukocytosis. Blood cultures negative. No active drainage. Hypotension could also be secondary to anemia. Switch back to Zosyn, monitor. Recheck CBC tomorrow. Diabetes mellitus 2 - SSI per protocol HTN - BPs have been on the lower end, start normal saline - D/C Amlodipine and replace with low-dose Lisinopril mostly for renal protection in light of DM, monitor. LE edema -Hold Lasix and metolazone because of hypotension - Monitor electrolytes - Continue KCl BROWN - Renal function worsening, start normal saline, diuretics on hold - Avoid nephrotoxic agents, recheck BMP tomorrow. Hypokalemia-replace, recheck tomorrow. Constipation Stool softeners, laxatives as need. DVT prophylaxis: Was on not Coumadin, switch to Eliquis once hemoglobin is stable and workup done. Discharge Planning DC when improved and cleared by hem/onc> Cleared by GI to f/u as OP. Patient can have lowest dose of anticoagulation per GI. Hem/onc to give final recs for anticoagulation Status post EGD and colonoscopy. Found with uncontrolled stomach ulcers continue pantoprazole 40 mg daily to follow-up with GI as outpatient biopsies are pending and follow-up as outpatient for results. Per GI patient might have the lowest dose of anticoagulation she is leaving due to stomach ulcers. PT to evaluate patient and recommend patient needs home health versus nursing facility. Discussed with the patient however she is [facility] however she also says she cannot walk and she cannot go home. She wants to stay in the hospital. Discussed with the patient son and wants patient to go to SNF. Discussed with the case management ff for DC plan and finding SNF if approved. Hortensia King MD Aug 18, 2017 14:18
[2017-08-18 16:00] VITALS: BP_SYST 105; BP_SYST 113; BP_DIAS 57; BP_DIAS 58; PULSE 75; PULSE 87; RESP 17; RESP 18; TEMP 97.5; TEMP 97.7; O2SAT 95; O2SAT 97
[2017-08-18 20:17] VITALS: BP 110/59; PULSE 94; RESP 19; TEMP 97.3; O2SAT 96
[2017-08-18 23:00] VITALS: BP_SYST 115; BP_SYST 127; BP_DIAS 62; BP_DIAS 67; PULSE 79; PULSE 81; RESP 18; TEMP 98; TEMP 98.5; O2SAT 96; O2SAT 97
[2017-08-19] MEDS: PANTOPRAZOLE SODIUM 40 MG VIAL IV PUSH SCH ×2 (05:28→17:25)
[2017-08-19] MEDS: ACETAMINOPHEN/HYDROcodone 325 MG/7.5 MG TAB PO PRN ×4 (05:29→17:23)
[2017-08-19] MEDS: CLINDAMYCIN 150 MG CAP PO SCH ×2 (05:59→13:24)
[2017-08-19 06:00] VITALS: BP 113/61; PULSE 97; RESP 18; TEMP 97.5; O2SAT 95
[2017-08-19 06:17] LABS: AUTOMATED NEUTROPHIL # 4.3 TH/MM3 (1.8-7.7); BASOPHIL % 0.5 % (0.0-2.0); EOSINOPHIL # 0.1 TH/MM3 (0-0.4); EOSINOPHIL % 1.2 % (0.0-4.0); HEMATOCRIT 26.4 % (35.0-46.0); HEMOGLOBIN 8.8 GM/DL (11.6-15.3); LYMPH % 17.4 % (9.0-44.0); MEAN CELL VOLUME 77.8 FL (80.0-100.0); MEAN CORPUSCULAR HEMOGLOBIN 26.1 PG (27.0-34.0); MEAN CORPUSCULAR HGB CONC 33.5 % (32.0-36.0); MEAN PLATELET VOLUME 8.5 FL (7.0-11.0); MONO % 7.5 % (0.0-8.0); MONOCYTE # 0.4 TH/MM3 (0-0.9); NEUT % 73.4 % (16.0-70.0); PLATELET COUNT 389 TH/MM3 (150-450); RED BLOOD COUNT 3.39 MIL/MM3 (4.00-5.30); WHITE BLOOD COUNT 5.9 TH/MM3 (4.0-11.0)
[2017-08-19 08:00] VITALS: BP 92/58; PULSE 85; RESP 17; TEMP 98.1; O2SAT 96
[2017-08-19] MEDS: INSULIN ASPART SUPPLEMENTAL SCALE SQ SCH ×3 (08:00→17:00)
[2017-08-19] MEDS: SODIUM CHLORIDE 0.9% FLUSH 10 ML FLUSH IV FLUSH SCH ×2 (09:00→09:29)
[2017-08-19 09:20] VITALS: BP 115/62
[2017-08-19] MEDS: APIXABAN 2.5 MG TABLET PO SCH (09:27)
[2017-08-19] MEDS: POTASSIUM CHLORIDE 10 MEQ CONTROLLED RELEASE TAB PO SCH (09:28)
[2017-08-19] MEDS: LISINOPRIL 5 MG TAB PO SCH (09:28)
[2017-08-19] MEDS: DOCUSATE SODIUM 50 MG/SENNA 8.6 MG TAB PO SCH (09:28)
[2017-08-19] MEDS: FERROUS SULFATE 325 MG (65 MG ELEMENTAL IRON) TAB PO SCH (09:29)
--- NOTE | 2017-08-19 10:13 | HHI.PR ---
Subjective Remarks Large bowel movement today normal color no blood in it. No nausea vomiting diarrhea constipation. Objective Vitals Vital Signs Date Time Temp Pulse Resp B/P (MAP) Pulse Ox O2 Delivery O2 Flow Rate FiO2 08/19/17 08:00 98.1 85 17 92/58 (69) 96 08/19/17 06:00 97.5 97 18 113/61 (78) 95 08/18/17 23:00 98.5 79 18 127/67 (87) 97 08/18/17 20:23 18 08/18/17 20:17 97.3 94 19 110/59 (76) 96 08/18/17 16:00 97.7 87 18 113/58 (76) 95 08/18/17 12:00 97.7 74 18 125/62 (83) 95 I/O 08/18/17 08/18/17 08/18/17 08/19/17 08/19/17 08/19/17 07:00 15:00 23:00 07:00 15:00 23:00 Intake Total 480 ml 360 ml Balance 480 ml 360 ml Intake Oral 480 ml 360 ml # Voids 1 2 # Bowel Movements 0 0 Result Diagram: 08/19/17 0511 08/18/17 0635 Objective Remarks GENERAL: Morbidly obese female laying in bed in NAD. SKIN: Warm and dry. HEENT: Pupils equal and round. MMM. NECK: Supple no tender LAD or JVD. HEART: RRR no m/r/g. LUNGS: CTAB without wheezes or crackles. ABDOMEN: Soft, NT, ND. EXTREMITIES: B/L LE edematous and enlarged. Warmth, induration, and tenderness with minimal palpation over R calf and schwab. NEURO: Awake and alert. No focal deficits. Procedures EGD/colonoscopy 08/14/17 A/P Assessment and Plan 56 yo AA female presented on 08/08 after having a witnessed syncopal episode. On admission she was found to have a supratherapeutic INR of 12.3. Patient with DVT left leg however also with anemia and stomach ulcers. On PPI,. anticoagulation per GI and hem/onc recs. Syncope Head CT negative, Carotid U/S with mild noncalcified plaque with borderline hemodynamic parameters suggesting possible 50-70% stenosis - Echo with low-normal EF of 50-55% and mild concentric LVH, ACS ruled out - Orthostatics borderline negative. - Etiology syncope possibly vasovagal vs dehydration as the patient states she hadn't eaten in four days prior to the episode - Encourage adequate hydration Anemia Antral stomach ulcers - Monitor closely, follow-up hematology workup, hold off anticoagulation, transfuse packed red blood cells today with hemoglobin of 6.8. Recheck CBC tomorrow - consult GI to r/o GI source of bleeding -Status post EGD and colonoscopy. Found with uncontrolled stomach ulcers continue pantoprazole 40 mg daily to follow-up with GI as outpatient biopsies are pending and follow-up as outpatient for results. Per GI patient might have the lowest dose of anticoagulation she is leaving due to stomach ulcers. Supratherapeutic INR - Resolved s/p vitamin K - INR 1.8 today, plan is to switch to Eliquis once anemia workup is finished. Pending Hemoccult. Chronic RLE DVT - Anticoagulated on Coumadin which hematology recommends continuing as it is impossible to tell if there is an acute DVT - D/W patient the chronicity of her clot burden and that she is going to continue having discomfort and swelling - Elevate leg, ? Cellulitis, continue anticoagulation per hematology, switch to Eliquis Cellulitis RLE - Pt initially started on broad spectrum with Vanc and Zosyn, de-escalated to Rocephin, patient now mildly hypotensive,? Beginning sepsis however no leukocytosis. Blood cultures negative. No active drainage. Hypotension could also be secondary to anemia. Switch back to Zosyn, monitor. Recheck CBC tomorrow. Diabetes mellitus 2 - SSI per protocol HTN - BPs have been on the lower end, start normal saline - D/C Amlodipine and replace with low-dose Lisinopril mostly for renal protection in light of DM, monitor. LE edema -Hold Lasix and metolazone because of hypotension - Monitor electrolytes - Continue KCl BROWN - Renal function worsening, start normal saline, diuretics on hold - Avoid nephrotoxic agents, recheck BMP tomorrow. Hypokalemia-replace, recheck tomorrow. Constipation Stool softeners, laxatives as need. DVT prophylaxis: Was on not Coumadin, switch to Eliquis once hemoglobin is stable and workup done. Discharge Planning DC when improved and cleared by hem/onc> Cleared by GI to f/u as OP. Patient can have lowest dose of anticoagulation per GI. Hem/onc to give final recs for anticoagulation Status post EGD and colonoscopy. Found with uncontrolled stomach ulcers continue pantoprazole 40 mg daily to follow-up with GI as outpatient biopsies are pending and follow-up as outpatient for results. Per GI patient might have the lowest dose of anticoagulation she is leaving due to stomach ulcers. PT to evaluate patient and recommend patient needs home health versus nursing facility. Discussed with the patient however she is refusing prison facility however she also says she cannot walk and she cannot go home. She wants to stay in the hospital. Discussed with the patient son and wants patient to go to SNF. Discussed with the case management ff for DC plan and finding SNF if approved. Hortensia King MD Aug 19, 2017 10:13
[2017-08-19 12:00] VITALS: BP 107/65; PULSE 80; RESP 17; TEMP 98.4; O2SAT 97
--- NOTE | 2017-08-19 13:47 | RADRPT ---
EXAM DATE/TIME: 08/19/2017 12:47 [place] COMPARISON: No previous studies available for comparison. INDICATIONS : Abdomen pain ORAL CONTRAST: No oral contrast ingested. RADIATION DOSE: 16.98 CTDIvol (mGy) MEDICAL HISTORY : Hypertension. Diabetes SURGICAL HISTORY : Tubal ligation. ENCOUNTER: Initial ACUITY: 1 day PAIN SCALE: 5/10 LOCATION: Abdomen TECHNIQUE: Volumetric scanning of the abdomen and pelvis was performed. Using automated exposure control and ad justment of the mA and/or kV according to patient size, radiation dose was kept as low as reasonably achievable to obtain optimal diagnostic quality images. DICOM format image data is available electro nically for review and comparison. FINDINGS: LOWER LUNGS: The visualized lower lungs are clear. LIVER: Homogeneous density without lesion. There is no dilation of the biliary tree. Gallbladder is surgica lly absent. SPLEEN: Normal size without lesion. PANCREAS: Pancreas is largely fatty-replaced with ossification is noted near the pancreatic head may reflect se quela of prior pancreatits. No peripancreatic fluid collections. KIDNEYS: Normal in size and shape. There is no mass, stone, or hydronephrosis. ADRENAL GLANDS: Within normal limits. VASCULAR: There is no aortic aneurysm. There is an IVC filter in place. BOWEL/MESENTERY: The stomach, small bowel, and colon demonstrate no acute abnormality. Appendix is visualized and nor mal in appearance. There is no free intraperitoneal air or fluid. ABDOMINAL WALL: Large mouth periumbilical anterior abdominal wall hernia containing primarily fat. RETROPERITONEUM: There is no lymphadenopathy. BLADDER: No wall thickening or mass. REPRODUCTIVE: Within normal limits. INGUINAL: There is no lymphadenopathy or hernia. MUSCULOSKELETAL: Within normal limits for patient age. CONCLUSION: 1. No acute CT abnormality in the abdomen or pelvis. 2. Normal appendix. 3. Large mouth periumbilical fat-containing anterior abdominal wall hernia. 4. Fatty replacement of the pancreas with calcification near the pancreatic head likely reflecting se quela of prior pancreatitis. Tushar Renee MD on August 19, 2017 at 13:37 Board Certified Radiologist. This report was verified electronically.
[2017-08-19 16:00] VITALS: BP 106/50; PULSE 78; RESP 17; TEMP 98.8; O2SAT 95
== END 2017-08-19 18:55 | DRG 299 ==
LOC: NEPE 13:43 → NEDA 21:27 → N06B 22:29
PROVIDERS: ADMIT Hospitalist; ATTEND Hospitalist
PROC: 30233N1 Transfusion of Nonautologous Red Blood Cells into Peripheral Vein, Percutaneous Approach (ICD-10-PCS; 2017-08-14)
PROC: 0DB78ZX Excision of Stomach, Pylorus, Via Natural or Artificial Opening Endoscopic, Diagnostic (ICD-10-PCS; principal; 2017-08-14 13:35)
PROC: 0DJD8ZZ Inspection of Lower Intestinal Tract, Via Natural or Artificial Opening Endoscopic (ICD-10-PCS; 2017-08-14 13:35)
DX: I82.4Y1 Acute embolism and thrombosis of unspecified deep veins of right proximal lower extremity (principal); K25.4 Chronic or unspecified gastric ulcer with hemorrhage; N17.9 Acute kidney failure, unspecified; D68.9 Coagulation defect, unspecified; I95.9 Hypotension, unspecified; E11.65 Type 2 diabetes mellitus with hyperglycemia; D62 Acute posthemorrhagic anemia; L03.115 Cellulitis of right lower limb; Z68.41 Body mass index [BMI] 40.0-44.9, adult; I82.501 Chronic embolism and thrombosis of unspecified deep veins of right lower extremity; E66.01 Morbid (severe) obesity due to excess calories; R55 Syncope and collapse; T45.515A Adverse effect of anticoagulants, initial encounter; K21.9 Gastro-esophageal reflux disease without esophagitis; I10 Essential (primary) hypertension; F79 Unspecified intellectual disabilities; F41.9 Anxiety disorder, unspecified; F43.20 Adjustment disorder, unspecified; M71.20 Synovial cyst of popliteal space [Baker], unspecified knee; R60.0 Localized edema; E78.5 Hyperlipidemia, unspecified; K29.70 Gastritis, unspecified, without bleeding; E87.6 Hypokalemia; R00.0 Tachycardia, unspecified; K59.00 Constipation, unspecified; Z79.01 Long term (current) use of anticoagulants
CPT/HCPCS: 36430; 70450; 71045; 74176; 78582; 80048; 80053; 80061; 80076; 82550; 82552; 82607; 82668; 82728; 82746; 82948; 83010; 83036; 83540; 83550; 83615; 83690; 83735; 84100; 84132; 84443; 84484; 85014; 85018; 85025; 85044; 85597; 85598; 85610; 85613; 85670; 85730; 86146; 86147; 86148; 86850; 86900; 86901; 86920; 87040; 88305; 93005; 93306; 93880; 93971; 96372; 96374; 96375; A9540; A9567; C9113; J0696; J1815; J1885; J2270; J2405; J2543; J3370; J3430; J3475; J3480; J7030; J7040; J7050; P9016